=== PATIENT | female | born 1945 | race Caucasian/White ===

== ENCOUNTER → 2017-11-17 13:09 | Outpatient (CLI) | payer MEDICARE, OTHER, SELFPAY ==
--- NOTE | 2017-11-17 13:20 | RAD_ITS ---
STUDY: SWALLOWING STUDY REASON FOR EXAM: Female, 71 years old. Dysphagia. TECHNIQUE: The examination was performed with Speech Pathology in attendance. Under fluoroscopic observation, the patient ingested thin barium, thick barium, barium pudding, and barium coated cracker. FLUOROSCOPY TIME: 1:42 minutes/seconds. 1606 spot images were obtained. RADIOLOGIST INVOLVEMENT: Radiologist was present and providing direct supervision. COMPARISON: None. FINDINGS: The following was observed during swallowing of the various mixtures of barium: Thin Barium: There was no evidence of aspiration or laryngeal penetration. Barium Pudding: There was no evidence of aspiration or laryngeal penetration. Barium Coated Cracker: There was no evidence of aspiration or laryngeal penetration. RAD/Swallowing Function w/Video IMPRESSION: Normal tailored barium swallow study. No evidence of increased risk for aspiration. The swallow study findings were discussed with the patient by the speech pathologist at the conclusion of the examination. Please see speech pathology report for more information and recommendations. Electronically Signed: Chuck Adler MD at 13:39 EDT Tel [phone], Service support ,
--- NOTE | 2017-11-17 13:30 | SP.MBSS_ITS ---
PRIMARY / SECONDARY DIAGNOSIS: dysphagia (R13.10) REFERRING PHYSICIAN: Dr. Myra Echeverria MD CURRENT DIET: regular textures, thin liquids DENTITION: multiple missing teeth MENTAL STATUS: WNL RESPIRATORY STATUS: O2 via room air PREVIOUS MODIFIED BARIUM SWALLOW STUDY: REASON FOR REFERRAL: Patient is a 71 year old female referred for a modified barium swallow (MBS) study to objectively assess the Patients oropharyngeal swallow function under fluoroscopy secondary to reported persistent globus sensation, initially reported early satiety, and apparent persistent reflux leading to emesis ( infrequent). Patient initially describing what sounds like early satiety, though upon expansion, it appears as though the Patient is describing reflux, as she states that if I take another bite, it all is going to come up, and that she continues to feel hungry during events. MEDICAL HISTORY: Arthritis, irritable bowel syndrome, chronic pain status post left total hip replacement (2010). STUDY FINDINGS: Patient participated in a Modified Barium Swallow (MBS) study on 11/17/2017. Dr. Adler was the radiologist present for this evaluation. This study was recorded in the lateral view and images were sent to PACs for storage. The following consistencies were presented to this patient for analysis of oropharyngeal swallow function: thin liquids, pudding, and a regular textured, Honey [employer] cookie. Results of the MBS are as follows: PENETRATION / ASPIRATION SCALE (PARTIDA): 1 = does not enter airway 2 = enters airway/above vocal folds/ejected 3 = enters airway/above vocal folds/not ejected 4 = enters airway/contacts vocal folds/ejected 5 = enters airway/contacts vocal folds/not ejected 6 = enters airway/below vocal folds/ejected 7 = enters airway/below vocal folds/not ejected despite effort 8 = enters airway/below vocal folds/no effort PENETRATION / ASPIRATION SCALE (SCORE): Thin liquid - 5 mL tsp.: 1 Thin liquids via cup (sequential swallows): 1 Thin liquids via cup (single sip): 1 Thin liquids via cup (single sip): 1 Thin liquids via cup (single sip): 1 Thin liquids via straw (single sip): 1 Pudding via spoon: 1 Regular textured cookie: 1 Thin liquids via straw (sequential swallows): 1 IMPRESSION: DIAGNOSIS: mild oropharyngeal dysphagia (R13.12) ORAL PHASE CHARACTERIZED BY: LABIAL SEAL: no labial escape TONGUE CONTROL DURING BOLUS MANIPULATION: intermittent posterior escape of less than half of bolus BOLUS PREPARATION / MASTICATION: timely and efficient chewing and mashing; anterior mastication BOLUS TRANSPORT / LINGUAL MOTION: intermittent brief disorganized tongue movements, though overall brisk tongue motion ORAL RESIDUE: trace residue lining oral structures PHARYNGEAL PHASE CHARACTERIZED BY: INITIATION OF PHARYNGEAL SWALLOW: bolus head at posterior laryngeal surface of epiglottis at first hyoid excursion SOFT PALATE ELEVATION: no bolus between soft palate and pharyngeal wall LARYNGEAL ELEVATION: complete superior movement of thyroid cartilage with complete approximation of arytenoids cartilage to epiglottic petiole ANTERIOR HYOID EXCURSION: partial anterior movement EPIGLOTTIC MOVEMENT: complete epiglottic inversion LARYNGEAL VESTIBULE CLOSURE AT HEIGHT OF SWALLOW: complete laryngeal vestibule closure with no air/contrast in laryngeal vestibule PHARYNGEAL STRIPPING WAVE: pharyngeal stripping wave present / complete PHARYNGOESOPHAGEAL SEGMENT OPENING: complete distension and complete duration with no obstruction of flow TONGUE BASE RETRACTION: trace column of contrast between tongue base and posterior pharyngeal wall PHARYNGEAL RESIDUE: collection of residue within or on pharyngeal structures ESOPHAGEAL PHASE CHARACTERIZED BY: ESOPHAGEAL BOLUS CLEARANCE IN THE UPRIGHT POSITION: complete clearance; esophageal coating; hiatal hernia EFFECTS OF TREATMENT STRATEGIES ATTEMPTED: Liquid chaser = effective Reduced bolus size = effective DIET TEXTURE RECOMMENDATIONS: Will recommend a regular textured, thin liquid diet. 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 Oral phase primarily marked by intermittent brief and inconsistent swallow onset delay primarily with more viscous textures, with occasional brief discoordinated movements, likely attributed to xerostomia given the lack of neurological impairment. Pharyngeal phase primarily marked by reduced closure of the airway during deglutition attributed to reduced anterior hyoid excursion resulting in intermittent disruptions in laryngeal vestibule closure timing; and unexplained pharyngeal dysmotility, with a consistent pocket of contrast retained along the location of the mandible during deglutition, with release post deglutition resulting in pharyngeal retention within the valleculae and pyriforms; atypical of traditional retention patterns, does not impact airway integrity during current study, may require further workup. The Patient does present with slight left palatal weakness in addition to a very trace lingual drift, though would not suspect this to be a causal factor, with little clinical significance suspected in regards to deglutition. All deficits ameliorated with bolus volume adjustments. Small cricopharyngeal bar located at the C-5 C-6 level no impact on pharyngeal motility. No oropharyngeal or pharyngoesophageal dysfunction noted to explain reported globus sensation and reflux / emesis. No aspiration appreciated throughout trials, unable to definitively rule out silent aspiration. RECOMMENDATIONS: No oropharyngeal or pharyngoesophageal dysfunction noted to explain reported globus sensation and reflux / emesis, would consider referral to escort car driver for further workup. Patient able to comprehend and express recommended intake precautions detailed above with sufficient detail to suggest high likelihood of compliance. Provided brief overview of signs and symptoms of aspiration, with recommendations for the Patient to further discuss symptoms with PCP. No further skilled speech-language services warranted at this time targeting dysphagia. ADDITIONAL COMMENTS/RECOMMENDATIONS: Results and recommendations were discussed with the Patient immediately following MBS completion, with the Patient verbalizing understanding and agreement with all recommendations and education provided. IMAGE COUNT: 1606 G-CODES: SWALLOWING [id number] Current Status: CI SWALLOWING [id number] Goal Status: CI SWALLOWING [id number] Discharge Status: CI
== END ==
PROVIDERS: Family Provider Internal Medicine; PCP Internal Medicine; Visit Provider Internal Medicine
DX: R13.10 Dysphagia, unspecified (principal); R68.81 Early satiety
CPT/HCPCS: 74230; 92611; G8996; G8997; G8998

== ENCOUNTER → 2018-03-15 16:30 | Outpatient (CLI) | payer MEDICARE, OTHER, SELFPAY ==
--- NOTE | 2018-03-15 16:33 | RAD_ITS ---
STUDY: X-RAY - CERVICAL SPINE REASON FOR EXAM: Female, 72 years old. Neck and chest pain TECHNIQUE: For view(s) of the cervical spine were obtained. COMPARISON: None FINDINGS: Normal anterior atlantoaxial articulation. Normal odontoid process. Normal cervical lordosis. There is multi-level endplate spondylosis. There is multi-level degenerative disc disease with multilevel disc space narrowing. The soft tissue structures are unremarkable. RAD/Cerv Spine 2 or 3 Views IMPRESSION: Multilevel degenerative changes Electronically Signed: Rad Gillette MD at 13:50 EDT , Service support ,
== END ==
PROVIDERS: Family Provider Internal Medicine; PCP Internal Medicine; Referring Provider Anesthesiology Pain Medicine; Visit Provider Anesthesiology Pain Medicine
DX: M54.2 Cervicalgia (principal)
CPT/HCPCS: 72040

== ENCOUNTER 2018-07-01 17:00 | Emergency (ER) | payer MEDICARE, OTHER, SELFPAY ==
[2018-07-01 17:03] VITALS: BP 124/90; PULSE 93; RESP 16; TEMP 36.2; O2SAT 96; BMI 30.2
[2018-07-01 17:25] LABS: Bacteria 0 SEEN /hpf (None Seen); Red Blood Cells-Urine 0 SEEN /hpf (0-5); Squamous Epithelial Cells - UA 0 SEEN /hpf (5-10)
[2018-07-01] MEDS: Ondansetron ODT 4 MG Tablet PO (17:30)
[2018-07-01 17:35] LABS: Color, Urine Yellow (Yellow); Glucose, Dipstick Normal (Normal); Ketone-Dipstick 15 mg/dl (Negative); Leukocyte Esterase-Dipstick 25 /ul (Negative); Nitrite-Dipstick Negative (Negative); Occult Blood-Urine 10 /ul (Negative); Protein-Dipstick Negative (Negative); Specific Gravity, Urine 1.025 (1.002-1.030); Urine Bilirubin Dipstick Negative (Negative); Urine Clarity Clear (Clear); Urine Urobilinogen Normal (Normal)
[2018-07-01 17:45] LABS: Calcium Oxalate Crystals Ur 1+ /hpf (<or=2+)
[2018-07-01 17:46] LABS: Mucous, Urine 1+ /hpf (<or=2+); White Blood Cells 0-5 SEEN /hpf (0-5)
--- NOTE | 2018-07-01 17:54 | ED.VISSUMM ---
- ER Visit Summary Date of Service: 07/01/18 Chief Complaint: Left flank pain History of Present Illness: The patient is a 72 F who has had 1 week of left flank pain. She states she has a history of arthritis and she has pain all over usually. She states that she started having aching down into her bladder radiating from her left flank. It does get better with a lidocaine patch. She was on Augmentin a couple weeks ago for URI. She denies dysuria or fevers. She currently takes Celebrex, lidocaine patches and Voltaren cream for her back pain. Physical Examination: Vital signs reviewed. Heart is regular rate and rhythm. Lungs clear to auscultation. Abdomen soft and nontender. She has left upper lumbar tenderness palpation. No CVA tenderness. No midline tenderness. Neurologic exam normal Test Results: Urinalysis reveals trace leukocytes and 5 white blood cells Emergency Department Course and Treatment: Patient given [place] and Zofran. There may be a small infectious component. However, I feel this is likely more muscular. She will continue her home medications. I will give her 3 days of Keflex. She will follow-up with her PCP Treatment Plan: [] Disposition: Discharge Impression: UTI, muscular skeletal back pain This note was generated with [employer] dictation software. It may contain incorrect words, spelling, and punctuation that were not noted in review of the chart prior to signing ED Disposition - Plan for ED Patient: Chief Complaint: Flank Pain Referrals: Myra Echeverria MD [Primary Care Provider] -
--- NOTE | 2018-07-01 17:57 | ED.DEP ---
ED Disposition - Plan for ED Patient: Disposition: Home or Assisted Living Chief Complaint: Flank Pain Instructions: ED Kidney Infec Female Prescriptions: Cephalexin [Keflex] 500 mg PO Q12 #6 cap Referrals: Myra Echeverria MD [Primary Care Provider] -
[2018-07-01] MEDS: HYDROcodone Bitartrate/Apap 5/325 Tablet PO (18:14)
[2018-07-01] MEDS: Cephalexin 250 MG Capsule 500 MG PO (18:14)
[2018-07-01 18:20] VITALS: BP 124/80; PULSE 71; RESP 16; TEMP 36.6; O2SAT 100
== END 2018-07-01 18:21 | disposition home or self-care (01) ==
PROVIDERS: Emergency Provider Emergency Medicine; Family Provider Internal Medicine; PCP Internal Medicine
DX: N39.0 Urinary tract infection, site not specified (principal); M54.9 Dorsalgia, unspecified
CPT/HCPCS: 81001; 99284

== ENCOUNTER 2018-07-09 09:55 | Emergency (ER) | payer MEDICARE, OTHER, SELFPAY ==
[2018-07-09 09:57] VITALS: BP 136/95; PULSE 78; RESP 14; TEMP 37.2; O2SAT 98; BMI 31.8
--- NOTE | 2018-07-09 10:08 | CT_ITS ---
STUDY: CT ABDOMEN AND PELVIS WITHOUT CONTRAST REASON FOR EXAM: Female, 72 years [address] Pain [address] Abd/Pelvis wo -- ;LEFT FLANK PAIN AND URINARY DISTRESS. TX FOR UTI. RADIATION DOSAGE (If Supplied By Facility): CTDIvol = ( 10.18 ) mGy, DLP = ( 483.15 ) mGycm TECHNIQUE: Transaxial images were obtained from the dome of the diaphragm to the symphysis pubis without oral contrast, and without intravenous contrast. Sagittal and coronal images were reconstructed. Individualized dose optimization techniques were used for this CT. COMPARISON: None. FINDINGS: The visualized lung bases are unremarkable. The visualized portions of the heart are within normal limits. Normal liver. Normal gallbladder and extrahepatic biliary system. Normal spleen. Normal pancreas. Normal bilateral adrenal glands. There is a 3 cm right kidney cyst. No hydronephrosis Normal left kidney. There is a large hiatal hernia composed mostly of the fundus of the stomach. Normal small intestine. Normal colon. There is non-visualization of the appendix. Normal abdominal aorta. Normal inferior vena cava. Normal retroperitoneum. Normal urinary bladder. There is a small umbilical hernia containing fat. There are diffuse degenerative changes of the visualized lumbar spine. Additionally there is grade 1 anterolisthesis with severe bilateral foraminal stenosis at L4/L5 CT/Abdomen/Pelvis without Cont IMPRESSION: No hydronephrosis or urolithiasis. Large hiatal hernia. Electronically Signed: Dominique Armstrong MD at 12:11 EST Tel , Service support ,
--- NOTE | 2018-07-09 10:12 | ED.DCSUM_ITS ---
- ER Visit Summary Date of Service: 07/09/18 Chief Complaint: Left flank pain History of Present Illness: The patient is a 72 F who has left flank pain. Started today. She had a UTI last week. I saw her at that time and gave her Keflex. She felt better and her symptoms were gone. Last night she started having some dysuria and she described hotness while she was urinating. She states she woke up with some left flank pain today. She has no history of kidney stones personally but there is a family history. She denies hematuria. No fevers. She took nothing for it at home. She does have a history of rheumatoid arthritis and takes Celebrex for this. Physical Examination: Vital signs reviewed. HEENT exam unremarkable. Heart is regular rate and rhythm without murmurs. Lungs are clear to auscultation. Abdomen is soft and nontender. Extremities reveal no edema. Skin exam normal. Neurologic exam normal. Test Results: Hemoglobin 15.1. Glucose 121. Trace leukocytes and 0-5 white blood cells in the urine. CT abdomen pelvis reveals a hiatal hernia with no other abnormalities Emergency Department Course and Treatment: Patient was given [place] for pain which helped. She states that when she was on 3 days of antibiotics she proved. I will send her home with an extended course of Macrobid. She will need to follow-up with urology. Treatment Plan: [] Disposition: Discharge Impression: UTI This note was generated with [employer] dictation software. It may contain incorrect words, spelling, and punctuation that were not noted in review of the chart prior to signing ED Disposition - Plan for ED Patient: Chief Complaint: Flank Pain Referrals: Myra Echeverria MD [Primary Care Provider] -
[2018-07-09] MEDS: HYDROcodone Bitartrate/Apap 5/325 Tablet PO (10:20)
[2018-07-09 10:25] LABS: Absolute Lymphocyte Count 1.39 X10^3/ul (0.83-4.51); Absolute Neutrophil Count 5.8 X10^3/uL (2.0-7.7); Basophil# 0.03 X10^3/uL; Basophil% 0.4 % (0-1); Eosinophil# 0.16 X10^3/uL; Hematocrit 47.1 % (37-47); Hemoglobin 15.1 g/dl (12.0-15.0); Lymphocyte # 1.39 X10^3/ul (4.0); Lymphocyte % 17.7 % (19-41); Mean Corp Hgb Conc 32.1 g/gl (32-36); Mean Corpuscular Hgb 30.2 pg (27.0-32.0); Mean Corpuscular Volume 94.2 fL (81-99); Mean Platelet Vol. 9.3 fl (6.2-12.0); Monocyte# 0.43 X10^3/uL; Monocyte% 5.5 % (0-10); Neutrophil # 5.82 X10^3/uL (2.7-7.7); Neutrophil % 74.1 % (47-70); Platelet Count 295 K/mm3 (150-450); RBC Distribution Width CV 14.4 % (11.6-14.6); RBC Distribution Width SD 47.7 fl (35.1-43.9); White Blood Count 7.9 K/mm3 (4.4-11.0)
[2018-07-09 10:26] LABS: POSITIVE COUNT NO; POSITIVE DIFFERENTIAL NO; POSITIVE MORPHOLOGY NO
[2018-07-09 10:34] LABS: Anion Gap 9 (5-15); BUN 17 mg/dL (7-18); BUN/Creat Ratio 18.7 RATIO (10-20); Calcium,Total 9.1 mg/dL (8.5-10.1); Chloride 108 mmol/L (98-107); Creatinine, Serum 0.91 mg/dL (0.55-1.02); EST Glomerular Filtration Rate 65 mL/min (>60); Est Glom Filt Rate - Afr Amer 78 mL/min (>60); Estimated Creatinine Clearance 63.91 ml/min; Glucose 121 mg/dL (74-106); Potassium 3.7 mmol/L (3.5-5.1); Sodium Level 142 mmol/L (136-145)
[2018-07-09 10:48] LABS: Color, Urine Yellow (Yellow); Glucose, Dipstick Normal (Normal); Ketone-Dipstick Negative (Negative); Leukocyte Esterase-Dipstick 25 /ul (Negative); Nitrite-Dipstick Negative (Negative); Occult Blood-Urine 50 /ul (Negative); Protein-Dipstick Negative (Negative); Specific Gravity, Urine 1.025 (1.002-1.030); Urine Bilirubin Dipstick Negative (Negative); Urine Clarity Clear (Clear); Urine Urobilinogen Normal (Normal)
[2018-07-09 10:57] LABS: Red Blood Cells-Urine 0-5 SEEN /hpf (0-5); Squamous Epithelial Cells - UA 0-5 SEEN /hpf (5-10)
[2018-07-09 10:58] LABS: Bacteria 1+ /hpf (None Seen); Mucous, Urine 1+ /hpf (<or=2+); White Blood Cells 0-5 SEEN /hpf (0-5)
[2018-07-09] MEDS: Ondansetron 4 MG/2 ML Vial IV (11:05)
[2018-07-09 11:54] VITALS: BP 110/73; PULSE 69; RESP 16; O2SAT 97
--- NOTE | 2018-07-09 12:21 | ED.DEP ---
ED Disposition - Plan for ED Patient: Disposition: Home or Assisted Living Chief Complaint: Flank Pain Instructions: ED UTI Cystitis Female Prescriptions: Nitrofurantoin Macrocrystals [Macrobid] 100 mg PO Q12 #14 cap Referrals: Myra Echeverria MD [Primary Care Provider] - Osman Champagne MD [STAFF PHYSICIAN] -
[2018-07-09 12:45] VITALS: BP 130/81; PULSE 62; RESP 16; O2SAT 99
--- OUTSIDE RECORDS SUMMARY | 2018-09-10 20:44 | XMS RPT_ITS ---
:1945 Author Organization [facility] Care Team Providers Name Role Phone TALAMPAS, MARIUSZ D Referring Unavailable TALAMPAS, MARIUSZ D Referring Unavailable DEMETRIA ANGULO (PA) Attending Unavailable TALAMPAS, MARIUSZ D Referring Unavailable ZEYAD STRATTON Attending Unavailable ZEYAD STRATTON Referring Unavailable TALAMPAS, MARIUSZ D Attending Unavailable ZEYAD STRATTON Attending Unavailable ZEYAD STRATTON Referring Unavailable ZEYAD STRATTON Attending Unavailable STRATTON ZEYAD Referring Unavailable TALAMPAS, MARIUSZ D Referring Unavailable THORPEFELIPA (BIT SHAVER) Attending Unavailable TALAMPAS, MARIUSZ D Referring Unavailable CHER TEE (DIRECTOR FACILITIES MAINTENANCE) Attending Unavailable CHER TEE (DIRECTOR FACILITIES MAINTENANCE) Referring Unavailable JESSE HERRERA Admitting Unavailable JESSE HERRERA Attending Unavailable FELIPA MARTINEZ (BIT SHAVER) Referring Unavailable ZEYAD STRATTON Attending Unavailable TALAMPAS, MARIUSZ D Referring Unavailable THORFELIPA KIMBROUGH (BIT SHAVER) Attending Unavailable THORFELIPA KIMBROUGH (BIT SHAVER) Referring Unavailable TALAMPAS, MARIUSZ D Referring Unavailable TALAMPAS, MARIUSZ D Attending Unavailable TALAMPAS, MARIUSZ D Referring Unavailable TALAMPAS, MARIUSZ D Referring Unavailable Talampas, Mariusz Primary Care Unavailable Chan Terrell Attending Unavailable Talampas, Mariusz Primary Care Unavailable Chan Terrell Attending Unavailable Talampas, Mariusz Attending Unavailable Talampas, Mariusz Referring Unavailable Talampas, Mariusz Primary Care Unavailable Martha Lopez Attending Unavailable Martha Lopez Referring Unavailable IrvingkyaColumbaa Primary Care Unavailable PROBLEMS PROBLEMS DATE TYPE CONDITION / CODE ATTENDING STATUS SOURCE 05/18/2018 Active Other fatigue / NA Active [facility] R53.83(ICD-10) [facility] [place] Rep[facility] 07/07/2015 Active Pure NA Active [facility] hypercholesterolem [place] ia, unspecified / Repository E78.00(ICD-10) 05/14/2018 Active Other abnormal NA Active [facility] glucose / [facility] [place] R73.09(ICD-10) Repository 01/22/2018 Active Dysphagia, HERRERA, Active [facility] unspecified / JESSE [facility] [place] R13.10(ICD-10) Repository 01/16/2018 Active Pain in left NA Active [facility] shoulder / [facility] [place] M25.512(ICD-10) Repository 12/07/2017 Active Encounter for NA Active [facility] screening [facility] [place] mammogram for Repository malignant neoplasm of breast / Z12.31(ICD-10) 11/17/2017 Unknown R13.10 - Mariusz Bhandari Active [facility] unspecified / Hospital R13.10(ICD-10) Repository 11/17/2017 Unknown R68.81 - Early TalampMariusz cooper Active [facility]ety / Community R68.81(ICD-10) Hospital Repository 11/02/2017 Active Unknown / ZEYAD STRATTON Active [facility] UNK(Unknown) [facility] [place] [facility] 09/05/2014 Active Vitamin D Active [facility] deficiency, [facility] [place] unspecified / Repository E55.9(ICD-10) 09/12/2017 Active Other longterm NA Active [facility] (current) drug [facility] [place] therapy / Repository Z79.899(ICD-10) 09/12/2017 Active Age-related Active [facility] osteoporosis [facility] [place] without current Repository pathological fracture / M81.0(ICD-10) PROCEDURES PROCEDURES No Procedure Records FoundRESULTS RESULTS OBSOLETE Observed: 07/10/2018 Status: COMPLETED Source: [place] 12:00 AM [facility] REPOSITORY Refill (INTMWS) NELLA CARLSON ([id number]) 1945 F Date Time Provider Department 07/10/18 MARIUSZ BHANDARI During your visit today, we recorded the following information about you: Delmy Luo LPN 07/10/2018 3:40 PM Signed Call from pharmacy requesting refill. Pending Prescriptions Disp Refills CELECOXIB 100 MG CAPSULE 90 capsule 1 Sig: Take 1 capsule by mouth once daily. TIN: No Patient last seen 05/18/18 Delmy Luo LPN Allergies As of Date: 07/10/2018 Noted Allergy Reaction OXYCODONE 03/23/2015 8 - GI Upset LYRICA (PREGABALIN) 10/29/2014 8 - GI Upset SEASONAL ALLERGIES 11/16/2017 14 - Other: See Comments Comments: sneezing, runny nose, and headache Date Reviewed: 05/18/2018 Reviewed by: Delmy Luo LPN - Fully Assessed Reason for Visit: Refill Request [94] Order(s):celecoxib (CELEBREX) 100 mg capsuleTake 1 capsule by mouth once daily.Disp: 90 capsuleRfl: 1 Prescriptions as of 07/10/2018 Sig: CELECOXIB 100 MG CAPSULE Take 1 capsule by mouth once * FLUTICASONE 50 MCG/ACTUATION * USE 1 SPRAY IN EACH NOSTRIL D* DEXILANT 60 MG CAPSULE, DELAY* TAKE 1 CAPSULE DAILY ZOLEDRONIC ACID 5 MG/100 ML I* Inject 100 mL intravenously o* OLOPATADINE 0.1 % EYE DROPS Use 1 Drop in both eyes twice* VOLTAREN 1 % TOPICAL GEL APPLY 2 GRAMS TO AFFECTED ARE* IPRATROPIUM BROMIDE 0.03 % NA* USE 1 TO 2 SPRAYS NASALLY DAPHNIE* Patient not taking: Reported on 05/18/2018 LIDOCAINE 5 % TOPICAL PATCH Apply 2 Patches as directed e* TRIAMCINOLONE ACETONIDE 0.1 %* Apply 1 application to affect* DIPHENOXYLATE-ATROPINE 2.5 MG* Take 1 tablet by mouth twice * GABAPENTIN 400 MG CAPSULE Take 1-2 capsules by mouth th* MECLIZINE 25 MG TABLET Take 1 tablet by mouth every * COMPOUNDED PRESCRIPTION methylcobalamin CHOLECALCIFEROL (VITAMIN D3) * Take 1 capsule by mouth once * METHYLSULFONYLMETHANE 1,000 M* Take 1 tablet by mouth once d* GARLIC TABLET Take 1 tablet by mouth. CINNAMON ORAL Take by mouth. VFMOYTZOMIP-FBL-FOPGJDEKP-VIT* Take by mouth. LORATADINE 10 MG TABLET Take 10 mg by mouth once heather* CPAP BOSWELLIA RONDA XT (BULK) M* 800 mg once daily. MULTIVITAMIN TABLET Take 1 tablet by mouth once d* VITAMIN E (DL, ACETATE) 400 U* Take 400 Units by mouth once * MAGNESIUM OXIDE 400 MG (241.3* Take 1 tablet by mouth once d* Problem List As Of Date 07/10/2018 Noted Resolved Ovarian cyst, follicular [N83.00] INVALID FOR*11/10/2016 More... Plantar fasciitis, bilateral [M72.2] INVALID FOR* Osteoporosis [M81.0] Vitamin D deficiency [E55.9] Diffuse myofascial pain syndrome [M79.18] INVALID FOR* Chronic pain [G89.29] INVALID FOR* Generalized OA [M15.9] INVALID FOR* Arthritis of knee [M17.10] INVALID FOR*02/27/2017 Pain in joint, pelvic region and thigh [M25.559]INVALID FOR* DONITA on CPAP [G47.33, Z99.89] INVALID FOR*02/27/2017 GERD (gastroesophageal reflux disease) [K21.9] INVALID FOR* Arthropathy, lower leg [HJB9480] INVALID FOR*03/23/2015 Hypercholesteremia [E78.00] Rectal bleeding [K62.5] Status post total left knee replacement [Z96.65*INVALID FOR*02/27/2017 Status post total replacement of left hip [Z96.*INVALID FOR* Pain in right hip [M25.551] INVALID FOR* Primary osteoarthritis of right knee [M17.11] INVALID FOR* DONITA (obstructive sleep apnea)-untreated [G47.33] Arthritis [M19.90] INVALID FOR* More... Class 1 obesity due to excess calories without *INVALID FOR* Prescriptions ordered this encounter Disp Refills Start End CELECOXIB 100 MG CAPSULE 90 c* 1 07/10/2018 Class: [facility] Route: ORAL Sig: Take 1 capsule by mouth once daily. Medications Discontinued During This Encounter celecoxib (CELEBREX) 100 mg capsule 90 c* 1 01/09/2018 07/10/2018 Route: ORAL Sig: Take 1 capsule by mouth once daily. Disc: Reason for discontinue is not on file. Encounter Status:Closed by CHER COONEY on 07/10/18 EMERGENCY DEPARTMENT Observed: 07/09/2018 Status: F Source: [place] SUMMARY 12:21 PM [facility] REPOSITORY [facility] Medical Records Department [address] [place] [address] Emergency Department Summary 07/09/18 1011 MR#: [id number] Acct: [id number] Name: NELLA CARLSON Rep #: [id number] : 1945 72 From: Chan Terrell MD PCP: Mariusz Bhandari MD Status: REG ER - ER Visit Summary Date of Service: 07/09/18 Chief Complaint: Left flank pain History of Present Illness: The patient is a 72 F who has left flank pain. Started today. She had a UTI last week. I saw her at that time and gave her Keflex. She felt better and her symptoms were gone. Last night she started having some dysuria and she described hotness while she was urinating. She states she woke up with some left flank pain today. She has no history of kidney stones personally but there is a family history. She denies hematuria. No fevers. She took nothing for it at home. She does have a history of rheumatoid arthritis and takes Celebrex for this. Physical Examination: Vital signs reviewed. HEENT exam unremarkable. Heart is regular rate and rhythm without murmurs. Lungs are clear to auscultation. Abdomen is soft and nontender. Extremities reveal no edema. Skin exam normal. Neurologic exam normal. Test Results: Hemoglobin 15.1. Glucose 121. Trace leukocytes and 0-5 white blood cells in the urine. CT abdomen pelvis reveals a hiatal hernia with no other abnormalities Emergency Department Course and Treatment: Patient was given [place] for pain which helped. She states that when she was on 3 days of antibiotics she proved. I will send her home with an extended course of Macrobid. She will need to follow-up with urology. Treatment Plan: [] Disposition: Discharge Impression: UTI This note was generated with Jasper Wirelessation software. It may contain incorrect words, spelling, and punctuation that were not noted in review of the chart prior to signing ED Disposition - Plan for ED Patient: Chief Complaint: Flank Pain Referrals: Mariusz Bhandari MD [Primary Care Provider] - What to do if you have Problems For any increased pain, shortness of breath, bleeding, nausea or vomiting, chest pain, or any unexpected problems, contact your Primary Care Provider. Call [facility] ([phone]) or report to the closest Emergency Room. Call 911 if necessary. 07/09/18 1221 <Electronically signed by Chan Terrell MD> Date Chan Terrell MD Cosigner Signature (If Indicated): Date CC: Mariusz Bhandari MD DISCHARGE INSTRUCTION Observed: 07/09/2018 Status: F Source: [place] 12:21 PM [facility] REPOSITORY [facility] Medical Records Department [address] [place] [address] Discharge Instruction 07/09/18 1221 MR#: [id number] Acct: [id number] Name: NELLA CARLSON Rep #: [id number] : 1945 72 From: Chan Terrell MD PCP: Mariusz Bhandari MD Status: REG ER ED Disposition - Plan for ED Patient: Disposition: Home or Assisted Living Chief Complaint: Flank Pain Instructions: ED UTI Cystitis Female Prescriptions: Nitrofurantoin Macrocrystals [Macrobid] 100 mg PO Q12 #14 cap Referrals: Mariusz Bhandari MD [Primary Care Provider] - Osman Champagne MD [STAFF PHYSICIAN] - What to do if you have Problems For any increased pain, shortness of breath, bleeding, nausea or vomiting, chest pain, or any unexpected problems, contact your Primary Care Provider. Call [facility] ([phone]) or report to the closest Emergency Room. Call 911 if necessary. 07/09/18 1221 <Electronically signed by Chan Terrell MD> Date Chan Terrell MD Cosigner Signature (If Indicated): Date CC: Mariusz Bhandari MD URINALYSIS, COMPLETE Collected: 07/09/2018 Status: F Source: [place] 10:40 AM [facility] REPOSITORY Order Comment: Order Date: 07/09/18 How was Urine Obtained? BOAT ENGINE MECHANIC TO SPECIFY TYPE CODE TESTS RESULT OUT OF RANGE REFERENCE UNITS LAB L400.3000 Yellow COLOR Normal Yellow LAB L400.3050 Clear Normal CLARITY Clear LAB L400.3200 Normal mg/dl Normal GLUCOSE, UR Normal LAB L400.3300 Negative mg/dL Normal BILIRUBIN URINE Negative LAB L400.3400 Negative mg/dl Normal KETONE UR Negative LAB L400.3465 1.002-1.030 Normal SP.GR. DIPSTX 1.025 LAB L400.3550 5.0 - 8.0 pH UR Normal 5.0 LAB L400.3600 Negative mg/dl PROT Normal DIPSTX Negative LAB L400.3700 Normal mg/dl Normal UROBILI Normal LAB L400.3750 Negative Normal NITRITE UR Negative LAB L400.3780 Negative /ul High 50 OCCULT BLOOD-UR LAB L400.3800 Negative /ul High LEUK 25 ESTERASE LAB L400.4050 0-5 /hpf WBC Normal 0-5 SEEN LAB L400.4100 0-5 /hpf Normal RBC-UA 0-5 SEEN LAB L400.4150 5-10 /hpf SQUAM Normal EPI 0-5 SEEN LAB L400.4300 None Seen /hpf 1+ Normal BACTERIA LAB L400.4350 <or=2+ /hpf 1+ Normal MUCUS, URINE Performed By: #### L400.0001 #### [facility] [address] [place], [address] Observed: 07/09/2018 Status: F Source: [place] CULTURE, URINE 10:40 AM [facility] REPOSITORY Order Date: 07/09/18 Urine Culture Culture exhibits no growth. Performed By: #### M100.0650 #### [facility] [place], [address] CBC W/DIFF, AUTOMATED Collected: 07/09/2018 Status: F Source: [place] 10:13 AM [facility] REPOSITORY TYPE CODE TESTS RESULT OUT OF RANGE REFERENCE UNITS LAB L100.1000 4.4-11.0 K/mm3 Normal WBC 7.9 LAB L100.1200 4.2-5.4 M/mm3 Normal RBC 5.00 LAB L100.1300 12.0-15.0 g/dl High HGB 15.1 LAB L100.1400 37-47 % High HCT 47.1 LAB L100.1500 81-99 fL Normal MCV 94.2 LAB L100.1600 27.0-32.0 pg Normal MCH 30.2 LAB L100.1700 32-36 g/gl Normal MCHC 32.1 LAB L100.1810 11.6-14.6 % Normal RDW CV 14.4 LAB L100.1820 35.1-43.9 fl High RDW SD 47.7 LAB L100.1900 150-450 K/mm3 Normal PLT 295 LAB L100.2000 6.2-12.0 fl Normal MPV 9.3 LAB L100.2100 47-70 % High NEUT% 74.1 LAB L100.2200 19-41 % Low LY% 17.7 LAB L100.2300 0-10 % Normal MONO% 5.5 LAB L100.2400 0-5 % Normal EO% 2.0 LAB L100.2500 0-1 % Normal BASO% 0.4 LAB L100.2550 0.0-0.9 % Normal IM GRAN % 0.300 Result Comment: IG% - Immature Granulocytes (promyelocytes, myelocytes and metamyelocytes) > 1% indicates that a LEFT SHIFT is Present. LAB L100.2620 2.0-7.7 X10 3/uL Normal Absolute Neut 5.8 LAB L100.2720 0.83-4.51 X10 3/ul Normal Absolute Lymph 1.39 Performed By: #### L100.0100 #### [facility] [address] [place], [address] BASIC METABOLIC Collected: 07/09/2018 Status: F Source: [place] PROFILE (BMP) 10:13 AM [facility] REPOSITORY TYPE CODE TESTS RESULT OUT OF RANGE REFERENCE UNITS LAB L501.0100 74-106 mg/dL High GLU 121 Result Comment: Fasting Glucose result from 100 to 125 mg/dL suggests IMPAIRED HOMEOSTASIS per A.D.A. criteria. Please note revised GLUCOSE reference range effective 2017. LAB L501.1000 7-18 mg/dL Normal BUN 17 LAB L501.1100 0.55-1.02 mg/dL Normal CREAT,SERUM 0.91 Result Comment: The validity of the calculated GFR AND GFRAA in patients over 70 years has not been determined. Clinical correlation is essential. LAB L501.1110 >60 mL/min Normal EST GFR 65 Result Comment: Non- GFR Calc LAB L501.1115 >60 mL/min Normal EST GFR - AA 78 Result Comment: GFR Calc LAB L501.1255 ml/min Normal Estimated CRCL 63.91 LAB L501.1300 10-20 RATIO Normal BUN/CRE 18.7 LAB L501.2200 8.5-10 mg/dL Normal .1 CA 9.1 LAB L501.5300 136-14 mmol/L Normal 5 NA 142 LAB L501.5600 3.5-5. mmol/L Normal 1 K 3.7 LAB L501.5900 98-107 mmol/L High CL 108 LAB L501.6100 21.0-3 mmol/L Normal 2.0 CO2 25.0 LAB L501.6200 5-15 Normal GAP 9 Performed By: #### L500.2500 #### [facility] [address] [place], [address] ABDOMEN/PELVIS WITHOUT Observed: 07/09/2018 Status: F Source: [place] CONT 10:10 AM [facility] REPOSITORY [facility] Imaging Services [address] [place] [address] Abdomen/Pelvis without Cont MR#: [id number] Acct: [id number] Name: NELLA CARLSON Rep #: [id number] : 1945 F 72 From: Dominique Armstrong PCP: Mariusz Bhandari MD Status: REG ER Study: Abdomen/Pelvis without Cont Date of Exam: 07/09/18 Exam# [id number] Ordering Dr: Chan Terrell MD STUDY: CT ABDOMEN AND PELVIS WITHOUT CONTRAST REASON FOR EXAM: Female, 72 years [address] Pain [address] Abd/Pelvis wo -- ;LEFT FLANK PAIN AND URINARY DISTRESS. TX FOR UTI. RADIATION DOSAGE (If Supplied By Facility): CTDIvol = ( 10.18 ) mGy, DLP = ( 483.15 ) mGycm TECHNIQUE: Transaxial images were obtained from the dome of the diaphragm to the symphysis pubis without oral contrast, and without intravenous contrast. Sagittal and coronal images were reconstructed. Individualized dose optimization techniques were used for this CT. COMPARISON: None. FINDINGS: The visualized lung bases are unremarkable. The visualized portions of the heart are within normal limits. Normal liver. Normal gallbladder and extrahepatic biliary system. Normal spleen. Normal pancreas. Normal bilateral adrenal glands. There is a 3 cm right kidney cyst. No hydronephrosis Normal left kidney. There is a large hiatal hernia composed mostly of the fundus of the stomach. Normal small intestine. Normal colon. There is non-visualization of the appendix. Normal abdominal aorta. Normal inferior vena cava. Normal retroperitoneum. Normal urinary bladder. There is a small umbilical hernia containing fat. There are diffuse degenerative changes of the visualized lumbar spine. Additionally there is grade 1 anterolisthesis with severe bilateral foraminal stenosis at L4/L5 CT/Abdomen/Pelvis without Cont IMPRESSION: No hydronephrosis or urolithiasis. Large hiatal hernia. Electronically Signed: Dominique Armstrong MD at 12:11 EST Tel , Service support , CC: Chan Terrell MD; Mariusz Bhandari MD Car Whacker: Signed EMERGENCY DEPARTMENT Observed: 07/01/2018 Status: F Source: [place] SUMMARY 5:57 PM [facility] REPOSITORY [facility] Medical Records Department [address] [place] [address] Emergency Department Summary 07/01/18 1754 MR#: [id number] Acct: [id number] Name: NELLA CARLSON Rep #: [id number] : 1945 72 From: Chan Terrell MD PCP: Mariusz Bhandari MD Status: REG ER - ER Visit Summary Date of Service: 07/01/18 Chief Complaint: Left flank pain History of Present Illness: The patient is a 72 F who has had 1 week of left flank pain. She states she has a history of arthritis and she has pain all over usually. She states that she started having aching down into her bladder radiating from her left flank. It does get better with a lidocaine patch. She was on Augmentin a couple weeks ago for URI. She denies dysuria or fevers. She currently takes Celebrex, lidocaine patches and Voltaren cream for her back pain. Physical Examination: Vital signs reviewed. Heart is regular rate and rhythm. Lungs clear to auscultation. Abdomen soft and nontender. She has left upper lumbar tenderness palpation. No CVA tenderness. No midline tenderness. Neurologic exam normal Test Results: Urinalysis reveals trace leukocytes and 5 white blood cells Emergency Department Course and Treatment: Patient given [place] and Zofran. There may be a small infectious component. However, I feel this is likely more muscular. She will continue her home medications. I will give her 3 days of Keflex. She will follow-up with her PCP Treatment Plan: [] Disposition: Discharge Impression: UTI, muscular skeletal back pain This note was generated with Aubrey dictation software. It may contain incorrect words, spelling, and punctuation that were not noted in review of the chart prior to signing ED Disposition - Plan for ED Patient: Chief Complaint: Flank Pain Referrals: Mariusz Bhandari MD [Primary Care Provider] - What to do if you have Problems For any increased pain, shortness of breath, bleeding, nausea or vomiting, chest pain, or any unexpected problems, contact your Primary Care Provider. Call [facility] ([phone]) or report to the closest Emergency Room. Call 911 if necessary. 07/01/181756 <Electronically signed by Chan Terrell MD> Date Chan Terrell MD Cosigner Signature (If Indicated): Date CC: Mariusz Bhandari MD DISCHARGE INSTRUCTION Observed: 07/01/2018 Status: F Source: [place] 5:57 PM [facility] REPOSITORY [facility] Medical Records Department [address] [place] [address] Discharge Instruction 07/01/181756 MR#: [id number] Acct: [id number] Name: NELLA CARLSON Tina Rep #: [id number] : 1945 72 From: Chan Terrell MD PCP: Mariusz Bhandari MD Status: REG ER ED Disposition - Plan for ED Patient: Disposition: Home or Assisted Living Chief Complaint: Flank Pain Instructions: ED Kidney Infec Female Prescriptions: Cephalexin [Keflex] 500 mg PO Q12 #6 cap Referrals: Mariusz Bhandari MD [Primary Care Provider] - What to do if you have Problems For any increased pain, shortness of breath, bleeding, nausea or vomiting, chest pain, or any unexpected problems, contact your Primary Care Provider. Call [facility] ([phone]) or report to the closest Emergency Room. Call 911 if necessary. 07/01/181756 <Electronically signed by Chan Terrell MD> Date Chan Terrell MD Cosigner Signature (If Indicated): Date CC: Mariusz Bhandari MD URINALYSIS, COMPLETE Collected: 07/01/2018 Status: F Source: [place] 5:15 PM [facility] REPOSITORY Order Comment: Order Date: 07/01/18 How was Urine Obtained? CLEAN CATCH TYPE CODE TESTS RESULT OUT OF RANGE REFERENCE UNITS LAB L400.3000 Yellow COLOR Normal Yellow LAB L400.3050 Clear Normal CLARITY Clear LAB L400.3200 Normal mg/dl Normal GLUCOSE, UR Normal LAB L400.3300 Negative mg/dL Normal BILIRUBIN URINE Negative LAB L400.3400 Negative mg/dl High 15 KETONE UR LAB L400.3465 1.002-1.030 Normal SP.GR. DIPSTX 1.025 LAB L400.3550 5.0 - 8.0 pH UR Normal 5.0 LAB L400.3600 Negative mg/dl PROT Normal DIPSTX Negative LAB L400.3700 Normal mg/dl Normal UROBILI Normal LAB L400.3750 Negative Normal NITRITE UR Negative LAB L400.3780 Negative /ul High 10 OCCULT BLOOD-UR LAB L400.3800 Negative /ul High LEUK 25 ESTERASE LAB L400.4050 0-5 /hpf WBC Normal 0-5 SEEN LAB L400.4100 0-5 /hpf 0 Normal RBC-UA SEEN LAB L400.4150 5-10 /hpf SQUAM 0 Normal EPI SEEN LAB L400.4300 None Seen /hpf 0 Normal BACTERIA SEEN LAB L400.4350 <or=2+ /hpf 1+ Normal MUCUS, URINE LAB L400.4700 <or=2+ /hpf CA OX 1+ Normal CRYSTAL Performed By: #### L400.0001 #### [facility] [address] [place], [address] CBC Collected: 05/18/2018 Status: F Source: [place] 1:36 PM [facility] REPOSITORY TYPE CODE TESTS RESULT OUT OF REFERENCE UNITS RANGE LAB WBC 3.70-11.00 k/uL WBC 7.95 LAB RBC 3.90-5.20 m/uL RBC 4.79 LAB HGB 11.5-15.5 g/dL Hemoglobin 14.3 LAB HCT 36.0-46.0 % Hematocrit 45.9 LAB MCV 80.0-100.0 fL MCV 95.8 LAB MCH 26.0-34.0 pG MCH 29.9 LAB MCHC 30.5-36.0 g/dL MCHC 31.2 LAB RDWCV 11.5-15.0 % RDW-CV 13.7 LAB PLTCT 150-400 k/uL Platelet Count 345 LAB MPV 9.0-12.7 fL MPV 9.7 LAB ABSNUC <0.01 k/uL Absolute nRBC <0.01 Performed By: #### CBC, TSH, FT4 #### [facility] [address] [address] TSH Collected: 05/18/2018 Status: F Source: [place] 1:36 PM [facility] REPOSITORY TYPE CODE TESTS RESULT OUT OF RANGE REFERENCE UNITS LAB TSH 0.400-5.500 uU/mL TSH 0.922 Performed By: #### CBC, TSH, FT4 #### [facility] [address] [address] FREE T4 Collected: 05/18/2018 Status: F Source: [place] 1:36 PM [facility] REPOSITORY TYPE CODE TESTS RESULT OUT OF RANGE REFERENCE UNITS LAB FT4 0.9-1.7 ng/dL Free T4 1.2 Performed By: #### CBC, TSH, FT4 #### [facility] [address] [id number] PROGRESS Observed: 05/18/2018 Status: COMPLETED Source: [place] 12:40 PM [facility] REPOSITORY HNO ID: [id number] Author: Mariusz Bhandari Service: (none) Author Type: Physician Type: Progress Notes Filed: 06/03/2018 8:31 PM Note Text: Patient presents with: Recheck: Follow up SUBJECTIVE: Nella Carlson is a 72 year old year old lady here today for 6 month follow up appointment for review of medical conditions. No energy Gets plenty of rest Gained weight. Got worse over the past summer. Doesn't feel like doing anything. Most nights sleeps through the night. Nocturia no more than once in a night. Gets 8 to 9 hours. Normal amount of sleep time as she needed before. Has been diagnosed with DONITA but not using CPAP or APAP. Did not tolerate when tried years ago. Arthritis is really bad. Bone on tops of feet cause pain from being fused. 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 Usually has a lot of energy--even last summer was able to work for hours. Wheezing noted when walks in house. Not really SOB unless doing something more strenuous. PAST MEDICAL HISTORY Diagnosis Date - Arthritis - DDD (degenerative disc disease) - Hemorrhoid - Hypercholesteremia - DONITA (obstructive sleep apnea) - Osteoporosis - Ovarian cyst, follicular 09/05/2014 followed by [facility]CC MED PHYSICIAN with every 6 month pelvic US; last one 03/2014 - Plantar fasciitis, bilateral 09/05/2014 - Rectal bleeding - Snoring - Vitamin D deficiency Current Outpatient Prescriptions: fluticasone (FLONASE) 50 mcg/actuation nasal spray USE 1 SPRAY IN EACH NOSTRIL DAILY celecoxib (CELEBREX) 100 mg capsule Take 1 capsule by mouth once daily. DEXILANT 60 mg CpDM TAKE 1 CAPSULE DAILY olopatadine (PATANOL) 0.1 % ophthalmic solution Use 1 Drop in both eyes twice daily. VOLTAREN 1 % topical gel APPLY 2 GRAMS TO AFFECTED AREA FOUR TIMES A DAY lidocaine (LIDODERM) 5 % Apply 2 Patches as directed every 24 hours. Remove after 12 hours. Location: Lower back and knees. triamcinolone acetonide (KENALOG) 0.1 % cream Apply 1 application to affected area three times daily. As needed for rash. Apply sparingly to area for rash/itching. diphenoxylate-atropine (LOMOTIL) 2.5-0.025 mg per tablet Take 1 tablet by mouth twice daily as needed for Diarrhea. gabapentin (NEURONTIN) 400 mg capsule Take 1-2 capsules by mouth three times daily. meclizine (ANTIVERT) 25 mg tab Take 1 tablet by mouth every 6 hours as needed (dizziness). COMPOUNDED PRESCRIPTION methylcobalamin Cholecalciferol, Vitamin D3, 5,000 unit cap Take 1 capsule by mouth once daily. (took 2 daily since April appt) Methylsulfonylmethane (MSM) 1,000 mg tab Take 1 tablet by mouth once daily. Garlic tab Take 1 tablet by mouth. CINNAMON BARK (CINNAMON ORAL) Take by mouth. Fxbbarrzfaw-MXY-Vfgstfteg-VitC cap Take by mouth. loratadine (CLARITIN) 10 mg tablet Take 10 mg by mouth once daily. CPAP BOSWELLIA RONDA EXTRACT (BOSWELLIA RONDA XT, BULK, [facility]) 800 mg once daily. multivitamin (DAILY MULTI-VITAMIN) tablet Take 1 tablet by mouth once daily. VITAMIN E, DL,TOCOPHERYL ACET, (VITAMIN E, DL, ACETATE,) 400 unit cap Take 400 Units by mouth once daily. magnesium oxide (MAG-OX) 400 mg tablet Take 1 tablet by mouth once daily. zoledronic acid (RECLAST) 5 mg/100 mL pgbk PREMIX piggyback Inject 100 mL intravenously one time only for 1 dose. Ipratropium [place] (ATROVENT) 0.03 % nasal spray USE 1 TO 2 SPRAYS NASALLY EVERY 12 HOURS DIRECTED (Patient not taking: Reported on 05/18/2018) No current facility-administered medications for this visit. OBJECTIVE: BP 100/76 Pulse 92 Resp 20 Wt 71.7 kg (158 lb) BMI 31.91 kg/m? Patient is alert, oriented times 3, no apparent distress, affect is bright, reactive. Last 5 Encounter BP Readings: Date: BP: 05/18/2018 100/76 03/12/2018 118/84 01/16/2018 112/82 01/03/2018 112/83 01/02/2018 116/77 Last 5 Encounter Wt Readings: Date: Wt: 05/18/2018 71.7 kg (158 lb) 03/12/2018 72.6 kg (160 lb) 01/16/2018 71.7 kg (158 lb) 01/03/2018 71.7 kg (158 lb 1.1 oz) 01/02/2018 71.7 kg (158 lb) Heart: Regular rate, rhythm, no murmurs, gallops, rubs. Lungs: Clear to auscultation, bilaterally, breathing non labored. Ext: No cyanosis, clubbing, or edema. Component Latest Ref Rng AND Units 09/10/2014 09/28/2015 03/22/2016 10/10/2016 10/30/2017 Triglyceride <150 mg/dL 129 125 109 120 179 (H) Cholesterol, Total <200 mg/dL 197 249 (H) 294 (H) 234 (H) 240 (H) HDL Cholesterol >39 mg/dL 73 95 93 96 99 VLDL Cholesterol <30 mg/dL 26 25 22 24 36 (H) LDL Cholesterol <100 mg/dL 98 129 179 (H) 114 105 (H) Fasting Time hrs FASTING FASTING fasting 13 1 TC:HDL Ratio <5.10 2.70 2.62 3.16 2.44 2.42 LDL:HDL Ratio <2.54 1.34 1.36 1.92 1.19 1.06 Non HDL Cholesterol <130 mg/dL 124 154 201 (H) 138 141 (H) Component Latest Ref Rng AND Units 10/10/2016 04/12/2017 09/12/2017 05/14/2018 Protein, Total 6.3 - 8.0 g/dL 6.6 7.2 6.8 Albumin 3.9 - 4.9 g/dL 4.0 4.2 4.1 Calcium 8.5 - 10.2 mg/dL 9.0 9.5 9.5 9.5 Bilirubin, Total 0.2 - 1.3 mg/dL 0.6 0.4 0.6 Alkaline Phosphatase 34 - 123 U/L 72 58 43 AST 13 - 35 U/L 25 25 28 Glucose 74 - 99 mg/dL 78 69 (L) 117 (H) 85 BUN 7 - 21 mg/dL 18 23 (H) 21 18 Creatinine 0.58 - 0.96 mg/dL 0.80 0.85 0.95 0.92 Sodium 136 - 144 mmol/L 140 141 140 144 Potassium 3.7 - 5.1 mmol/L 4.4 4.2 4.0 4.0 Chloride 97 - 105 mmol/L 103 104 103 108 (H) CO2 22 - 30 mmol/L 24 23 22 25 Anion Gap 9 - 18 mmol/L 13 14 15 11 ALT 7 - 38 U/L 16 20 19 eGFR- >60 >60 >60 >60 eGFR-All Other Races . >60 >60 58 >60 WBC 3.70 - 11.00 k/uL 6.53 8.69 RBC 3.90 - 5.20 m/uL 4.46 4.91 Hemoglobin 11.5 - 15.5 g/dL 13.3 14.8 Hematocrit 36.0 - 46.0 % 42.7 46.6 (H) MCV 80.0 - 100.0 fL 95.7 94.9 MCH 26.0 - 34.0 pG 29.8 30.1 MCHC 30.5 - 36.0 g/dL 31.1 31.8 RDW-CV 11.5 - 15.0 % 14.6 13.9 Platelet Count 150 - 400 k/uL 335 372 MPV 9.0 - 12.7 fL 10.2 9.5 Absolute nRBC <0.01 k/uL <0.01 <0.01 Hemoglobin A1C 4.3 - 5.6 % 5.4 Estimated Average Glucose mg/dL 108 Vitamin D 25 Hydroxy 31.0 - 80.0 ng/mL 40.2 37.4 39.2 Magnesium 1.7 - 2.3 mg/dL 2.0 1.9 ASSESSMENT AND PLAN: Encounter Diagnosis ICD-10-CM 1. Fatigue, unspecified type R53.83 TSH BLD T4 FREE/FREE THYROX CBC 2. Daytime sleepiness R40.0 3. DONITA (obstructive sleep apnea)--untreated G47.33 4. Vitamin D deficiency E55.9 5. Hypercholesteremia E78.00 Above issues addressed with patient. Patient involved in shared decision making for management of medical issues. History and medications reviewed. Epic updated as needed Refills taken care of and meds adjusted as indicated after reviewed history, exam and labs. Health Maintenance reviewed. Updated record and/or ordered tests as recorded. Encouraged on efforts at healthy diet and regular exercise and adequate sleep. Needs to keep working on diet and exercise with lifestyle changes for effective weight loss as well as control of DM, and control of BP and lipids. See patient instructions. Update labs as noted above. Further evaluation and treatment as indicated for fatigue. Need to consider treating CPAP if fatigue getting worse and cannot find another treatable cause. The majority of the visit was spent counseling and/or coordinating care for the patient. Azlz-hn-yzok time was at least 25 minutes. Mariusz Bhandari MD CNOV Observed: 05/18/2018 Status: COMPLETED Source: [place] 11:40 AM [facility] REPOSITORY Office Visit (INTMWS) NELLA CARLSON ([id number]) 1945 F Date Time Provider Department 05/18/18 11:40 AM MARIUSZ BHANDARI INTJosephWS During your visit today, we recorded the following information about you: Pulse Respiration Blood pressure Weight 92/minute 20/minute 100/76 71.7 kg Mariusz Bhandari MD 06/03/2018 8:31 PM Signed Patient presents with: Recheck: Follow up SUBJECTIVE: Nella Carlson is a 72 year old year old lady here today for 6 month follow up appointment for review of medical conditions. No energy Gets plenty of rest Gained weight. Got worse over the past summer. Doesn't feel like doing anything. Most nights sleeps through the night. Nocturia no more than once in a night. Gets 8 to 9 hours. Normal amount of sleep time as she needed before. Has been diagnosed with DONITA but not using CPAP or APAP. Did not tolerate when tried years ago. Arthritis is really bad. Bone on tops of feet cause pain from being fused. 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 Usually has a lot of energy--even last summer was able to work for hours. Wheezing noted when walks in house. Not really SOB unless doing something more strenuous. PAST MEDICAL HISTORY Diagnosis Date - Arthritis - DDD (degenerative disc disease) - Hemorrhoid - Hypercholesteremia - DONITA (obstructive sleep apnea) - Osteoporosis - Ovarian cyst, follicular 09/05/2014 followed by OCC MED PHYSICIAN with every 6 month pelvic US; last one 03/2014 - Plantar fasciitis, bilateral 09/05/2014 - Rectal bleeding - Snoring - Vitamin D deficiency Current Outpatient Prescriptions: fluticasone (FLONASE) 50 mcg/actuation nasal spray USE 1 SPRAY IN EACH NOSTRIL DAILY celecoxib (CELEBREX) 100 mg capsule Take 1 capsule by mouth once daily. DEXILANT 60 mg CpDM TAKE 1 CAPSULE DAILY olopatadine (PATANOL) 0.1 % ophthalmic solution Use 1 Drop in both eyes twice daily. VOLTAREN 1 % topical gel APPLY 2 GRAMS TO AFFECTED AREA FOUR TIMES A DAY lidocaine (LIDODERM) 5 % Apply 2 Patches as directed every 24 hours. Remove after 12 hours. Location: Lower back and knees. triamcinolone acetonide (KENALOG) 0.1 % cream Apply 1 application to affected area three times daily. As needed for rash. Apply sparingly to area for rash/itching. diphenoxylate-atropine (LOMOTIL) 2.5-0.025 mg per tablet Take 1 tablet by mouth twice daily as needed for Diarrhea. gabapentin (NEURONTIN) 400 mg capsule Take 1-2 capsules by mouth three times daily. meclizine (ANTIVERT) 25 mg tab Take 1 tablet by mouth every 6 hours as needed (dizziness). COMPOUNDED PRESCRIPTION methylcobalamin Cholecalciferol, Vitamin D3, 5,000 unit cap Take 1 capsule by mouth once daily. (took 2 daily since April appt) Methylsulfonylmethane (MSM) 1,000 mg tab Take 1 tablet by mouth once daily. Garlic tab Take 1 tablet by mouth. CINNAMON BARK (CINNAMON ORAL) Take by mouth. Oapjixsqwrf-YIQ-Zxnlfzerv-VitC cap Take by mouth. loratadine (CLARITIN) 10 mg tablet Take 10 mg by mouth once daily. CPAP BOSWELLIA RONDA EXTRACT (BOSWELLIA RONDA XT, BULK, MIS) 800 mg once daily. multivitamin (DAILY MULTI-VITAMIN) tablet Take 1 tablet by mouth once daily. VITAMIN E, DL,TOCOPHERYL ACET, (VITAMIN E, DL, ACETATE,) 400 unit cap Take 400 Units by mouth once daily. magnesium oxide (MAG-OX) 400 mg tablet Take 1 tablet by mouth once daily. zoledronic acid (RECLAST) 5 mg/100 mL pgbk PREMIX piggyback Inject 100 mL intravenously one time only for 1 dose. Ipratropium [place] (ATROVENT) 0.03 % nasal spray USE 1 TO 2 SPRAYS NASALLY EVERY 12 HOURS DIRECTED (Patient not taking: Reported on 05/18/2018) No current facility-administered medications for this visit. OBJECTIVE: BP 100/76 Pulse 92 Resp 20 Wt 71.7 kg (158 lb) BMI 31.91 kg/m? Patient is alert, oriented times 3, no apparent distress, affect is bright, reactive. Last 5 Encounter BP Readings: Date: BP: 05/18/2018 100/76 03/12/2018 118/84 01/16/2018 112/82 01/03/2018 112/83 01/02/2018 116/77 Last 5 Encounter Wt Readings: Date: Wt: 05/18/2018 71.7 kg (158 lb) 03/12/2018 72.6 kg (160 lb) 01/16/2018 71.7 kg (158 lb) 01/03/2018 71.7 kg (158 lb 1.1 oz) 01/02/2018 71.7 kg (158 lb) Heart: Regular rate, rhythm, no murmurs, gallops, rubs. Lungs: Clear to auscultation, bilaterally, breathing non labored. Ext: No cyanosis, clubbing, or edema. Component Latest Ref Rng AND Units 09/10/2014 09/28/2015 03/22/2016 10/10/2016 10/30/2017 Triglyceride <150 mg/dL 129 125 109 120 179 (H) Cholesterol, Total <200 mg/dL 197 249 (H) 294 (H) 234 (H) 240 (H) HDL Cholesterol >39 mg/dL 73 95 93 96 99 VLDL Cholesterol <30 mg/dL 26 25 22 24 36 (H) LDL Cholesterol <100 mg/dL 98 129 179 (H) 114 105 (H) Fasting Time hrs FASTING FASTING fasting 13 1 TC:HDL Ratio <5.10 2.70 2.62 3.16 2.44 2.42 LDL:HDL Ratio <2.54 1.34 1.36 1.92 1.19 1.06 Non HDL Cholesterol <130 mg/dL 124 154 201 (H) 138 141 (H) Component Latest Ref Rng AND Units 10/10/2016 04/12/2017 09/12/2017 05/14/2018 Protein, Total 6.3 - 8.0 g/dL 6.6 7.2 6.8 Albumin 3.9 - 4.9 g/dL 4.0 4.2 4.1 Calcium 8.5 - 10.2 mg/dL 9.0 9.5 9.5 9.5 Bilirubin, Total 0.2 - 1.3 mg/dL 0.6 0.4 0.6 Alkaline Phosphatase 34 - 123 U/L 72 58 43 AST 13 - 35 U/L 25 25 28 Glucose 74 - 99 mg/dL 78 69 (L) 117 (H) 85 BUN 7 - 21 mg/dL 18 23 (H) 21 18 Creatinine 0.58 - 0.96 mg/dL 0.80 0.85 0.95 0.92 Sodium 136 - 144 mmol/L 140 141 140 144 Potassium 3.7 - 5.1 mmol/L 4.4 4.2 4.0 4.0 Chloride 97 - 105 mmol/L 103 104 103 108 (H) CO2 22 - 30 mmol/L 24 23 22 25 Anion Gap 9 - 18 mmol/L 13 14 15 11 ALT 7 - 38 U/L 16 20 19 eGFR- >60 >60 >60 >60 eGFR-All Other Races . >60 >60 58 >60 WBC 3.70 - 11.00 k/uL 6.53 8.69 RBC 3.90 - 5.20 m/uL 4.46 4.91 Hemoglobin 11.5 - 15.5 g/dL 13.3 14.8 Hematocrit 36.0 - 46.0 % 42.7 46.6 (H) MCV 80.0 - 100.0 fL 95.7 94.9 MCH 26.0 - 34.0 pG 29.8 30.1 MCHC 30.5 - 36.0 g/dL 31.1 31.8 RDW-CV 11.5 - 15.0 % 14.6 13.9 Platelet Count 150 - 400 k/uL 335 372 MPV 9.0 - 12.7 fL 10.2 9.5 Absolute nRBC <0.01 k/uL <0.01 <0.01 Hemoglobin A1C 4.3 - 5.6 % 5.4 Estimated Average Glucose mg/dL 108 Vitamin D 25 Hydroxy 31.0 - 80.0 ng/mL 40.2 37.4 39.2 Magnesium 1.7 - 2.3 mg/dL 2.0 1.9 ASSESSMENT AND PLAN: Encounter Diagnosis ICD-10-CM 1. Fatigue, unspecified type R53.83 TSH BLD T4 FREE/FREE THYROX CBC 2. Daytime sleepiness R40.0 3. DONITA (obstructive sleep apnea)--untreated G47.33 4. Vitamin D deficiency E55.9 5. Hypercholesteremia E78.00 Above issues addressed with patient. Patient involved in shared decision making for management of medical issues. History and medications reviewed. Epic updated as needed Refills taken care of and meds adjusted as indicated after reviewed history, exam and labs. Health Maintenance reviewed. Updated record and/or ordered tests as recorded. Encouraged on efforts at healthy diet and regular exercise and adequate sleep. Needs to keep working on diet and exercise with lifestyle changes for effective weight loss as well as control of DM, and control of BP and lipids. See patient instructions. Update labs as noted above. Further evaluation and treatment as indicated for fatigue. Need to consider treating CPAP if fatigue getting worse and cannot find another treatable cause. The majority of the visit was spent counseling and/or coordinating care for the patient. Grvt-iq-tfwy time was at least 25 minutes. MD Mariusz Hicsk MD 05/18/2018 12:56 PM Addendum Can take Flonase 2 sprays at night time or increase up to twice daily to see if helps with using APAP. Consider trial on APAP again and treat the allergies and asthma. Okay to increase Vitamin D Referring Provider: MARIUSZ BHANDARI [[id number]] Allergies As of Date: 05/18/2018 Noted Allergy Reaction OXYCODONE 03/23/2015 8 - GI Upset LYRICA (PREGABALIN) 10/29/2014 8 - GI Upset SEASONAL ALLERGIES 11/16/2017 14 - Other: See Comments Comments: sneezing, runny nose, and headache Date Reviewed: 05/18/2018 Reviewed by: Delmy Luo LPN - Fully Assessed Reason for Visit: Recheck [92] Cmt: Follow up Primary Visit Diagnosis:Fatigue, unspecified type [R53.83] Other Visit Diagnoses:Daytime sleepiness [R40.0] DONITA (obstructive sleep apnea)--untreated [G47.33] Vitamin D deficiency [E55.9] Hypercholesteremia [E78.00] Order(s):TSH BLD [SQTSH] Order #: [id number] FUTURE T4 FREE/FREE THYROX [SQFT4] Order #: [id number] FUTURE CBC [SQCBC] Order #: [id number] FUTURE Prescriptions as of 05/18/2018 Sig: BOSWELLIA RONDA XT (BULK) M* 800 mg once daily. CELECOXIB 100 MG CAPSULE Take 1 capsule by mouth once * CHOLECALCIFEROL (VITAMIN D3) * Take 1 capsule by mouth once * CINNAMON ORAL Take by mouth. COMPOUNDED PRESCRIPTION methylcobalamin CPAP DEXILANT 60 MG CAPSULE, DELAY* TAKE 1 CAPSULE DAILY DIPHENOXYLATE-ATROPINE 2.5 MG* Take 1 tablet by mouth twice * FLUTICASONE 50 MCG/ACTUATION * USE 1 SPRAY IN EACH NOSTRIL D* GABAPENTIN 400 MG CAPSULE Take 1-2 capsules by mouth th* GARLIC TABLET Take 1 tablet by mouth. UYZDRGKRHLO-QGO-OMCGEEREA-VIT* Take by mouth. LIDOCAINE 5 % TOPICAL PATCH Apply 2 Patches as directed e* LORATADINE 10 MG TABLET Take 10 mg by mouth once heather* MAGNESIUM OXIDE 400 MG (241.3* Take 1 tablet by mouth once d* MECLIZINE 25 MG TABLET Take 1 tablet by mouth every * METHYLSULFONYLMETHANE 1,000 M* Take 1 tablet by mouth once d* MULTIVITAMIN TABLET Take 1 tablet by mouth once d* OLOPATADINE 0.1 % EYE DROPS Use 1 Drop in both eyes twice* TRIAMCINOLONE ACETONIDE 0.1 %* Apply 1 application to affect* VITAMIN E (DL, ACETATE) 400 U* Take 400 Units by mouth once * VOLTAREN 1 % TOPICAL GEL APPLY 2 GRAMS TO AFFECTED ARE* IPRATROPIUM BROMIDE 0.03 % NA* USE 1 TO 2 SPRAYS NASALLY DAPHNIE* Patient not taking: Reported on 05/18/2018 ZOLEDRONIC ACID 5 MG/100 ML I* Inject 100 mL intravenously o* Medication notes this encounter GABAPENTIN 400 MG CAPSULE >> Mariusz Bhandari MD 05/18/2018 1:07 PM >> MARIUSZ BHANDARI MD MonMay 18, 2018 1:07 PM Takes just 1 at bedtime IPRATROPIUM BROMIDE 0.03 % NASAL SPRAY >> Delmy Luo LPN 05/18/2018 12:28 PM >> DELMY LUO LPN MonMay 18, 2018 12:28 PM Problem List As Of Date 05/18/2018 Noted Resolved Ovarian cyst, follicular [N83.00] INVALID FOR*11/10/2016 More... 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 Class 1 obesity due to excess calories without *INVALID FOR* Other instructions from your clinician: Can take Flonase 2 sprays at night time or increase up to twice daily to see if helps with using APAP. Consider trial on APAP again and treat the allergies and asthma. Okay to increase Vitamin D Disposition: Return in about 6 months (around 11/15/2018) for 6 months follow up, With labs prior. Follow-up and Disposition History Recorded Encounter Status:Closed by MARIUSZ BHANDARI MD on 06/03/18 VITAMIN D 25 HYDROXY Collected: 05/14/2018 Status: F Source: [place] 9:18 AM [facility] REPOSITORY TYPE CODE TESTS RESULT OUT OF REFERENCE UNITS RANGE LAB VITD 31.0-80.0 ng/mL Vitamin D 25 39.2 Hydroxy Result Comment: Classification of 25 [place] Vitamin D status: Insufficiency/Moderate Deficiency: < or = 30 ng/mL Sufficiency/Optimal Levels: 31 to 80 ng/mL Toxicity: > 100 ng/mL Test performed by chemiluminescent immunoassay. Performed By: #### VITD, CMP, LIPNF, HBA1C #### [facility] [address], [place] [address] COMP METABOLIC PANEL Collected: 05/14/2018 Status: F Source: [place] 9:18 AM [facility] REPOSITORY TYPE CODE TESTS RESULT OUT OF REFERENCE UNITS RANGE LAB TP 6.3-8.0 g/dL Protein, Total 6.8 LAB ALB 3.9-4.9 g/dL Albumin 4.1 LAB CA 8.5-10.2 mg/dL Calcium, Total 9.5 LAB TBIL 0.2-1.3 mg/dL Bilirubin, Total 0.6 LAB ALKP 34-123 U/L Alkaline Phosphatase 43 LAB AST 13-35 U/L AST 28 LAB GLU 74-99 mg/dL Glucose 85 Result Comment: The [place] Diabetes Association (ADA) provides guidance for cutoff values for fasting glucose and random glucose. The ADA defines fasting as no caloric intake for at least 8 hours. Fas ting plasma glucose results between 100 to 125 mg/dL indicate increased risk for diabetes (prediabetes). Fasting plasma glucose results greater than or equal to 126 mg/dL meet the criteria for diagnosis of diabetes. In the absence of unequivocal hyperglycemia, results should be confirmed by repeat testing. In a patient with classic symptoms of hyperglycemia or hyperglycemic crisis, random plasma glucose results greater than or equal to 200 mg/dL meet the criteria for diagnosis of diabetes. Reference: Standards of Medical Care in Diabetes 2016, [place] Diabetes Association. Diabetes Care. 2016.39(Suppl 1). LAB BUN 7-21 mg/dL BUN 18 LAB CRET 0.58-0.96 mg/dL Creatinine 0.92 LAB NA 136-144 mmol/L Sodium 144 LAB K 3.7-5.1 mmol/L Potassium 4.0 LAB CL 97-105 mmol/L Chloride High 108 LAB CO2 22-30 mmol/L CO2 25 LAB AGAP 9-18 mmol/L Anion Gap 11 LAB ALT 7-38 U/L ALT 19 LAB GFRAA eGFR- Amer. >60 LAB GFRNAA . eGFR-All Other Races >60 Result Comment: eGFR (Estimated GFR) Units of measure: mL/min/1.73 meters squared eGFR is derived from the reexpressed MDRD Study equation using the following parameters: serum creatinine, age, gender and race. The creatinine assay has been calibrated to be traceable to IDMS. An eGFR <60 mL/min/1.73m2 for >3 months is consistent with chronic kidney disease. Refer to KDOQI guidelines for clinical interpretation. In patients with unstable renal function, e.g. those with acute kidney injury, the eGFR may not accurately reflect actual GFR. Performed By: #### VITD, CMP, LIPNF, HBA1C #### [facility] [address] [place], [place] [address] LIPID PANEL, NONFAST Collected: 05/14/2018 Status: F Source: [place] 9:18 AM [facility] REPOSITORY TYPE CODE TESTS RESULT OUT OF REFERENCE UNITS RANGE LAB CHOLNF <200 mg/dL Total High Cholesterol NF 261 Result Comment: <200 mg/dL, Desirable 200-239 mg/dL, Borderline high >239 mg/dL, High LAB TRIGNF <150 mg/dL Triglycerides, NF 96 Result Comment: <150 mg/dL, Normal 150-199 mg/dL, Borderline high 200-499 mg/dL, High >499 mg/dL, Very high LAB HDLNF >39 mg/dL HDL Cholesterol, NF 105 Result Comment: 40-59 mg/dL, Acceptable >59 mg/dL, High: Negative risk factor for coronary heart disease <40 mg/dL, Low: Positive risk factor for coronary heart disease LAB LDLNF <100 mg/dL LDL Cholesterol, High NF 137 Result Comment: <100 mg/dL, Optimal 100-129 mg/dL, Near optimal/above optimal 130-159 mg/dL, Borderline high 160-189 mg/dL, High >189 mg/dL, Very high Secondary prevention optimal LDL Cholesterol levels are recommended to be < 70 mg/dL LAB NOHDLN <130 mg/dL High Non HDL Chol, 156 NF Result Comment: <130 mg/dL, Optimal 130-159 mg/dL, Near optimal/above optimal 160-189 mg/dL, Borderline high 190-219 mg/dL, High >219 mg/dL, Very high Secondary prevention optimal non HDL Cholesterol levels are recommended to be < 100 mg/dL LAB VLDLNF <30 mg/dL VLDL Cholesterol, NF 19 LAB TCHDLN <5.10 mg/dL T Chol/HDL Ratio NF 2.49 LAB LDLHDN <2.54 mg/dL LDL/HDL Ratio, NF 1.30 Result Comment: Reference: 1. National Cholesterol Education Program ATP III Guideline At-A-Glance Quick Desk Reference: National Heart, Lung, and Blood [place]. National Institutes of Health. 2001: NIH Publication No. 01-3305. 2. An International Atherosclerosis Society position paper: global recommendations for the management of dyslipidemia: executive summary, Atherosclerosis. 2014: 232(2):410-413. Performed By: #### VITD, CMP, LIPNF, HBA1C #### [place] [facility] [address] [place], [place] [address] HEMOGLOBIN A1C Collected: 05/14/2018 Status: F Source: [place] 9:18 AM [facility] REPOSITORY TYPE CODE TESTS RESULT OUT OF REFERENCE UNITS RANGE LAB HGBA1C 4.3-5.6 % Hemoglobin A1c 5.4 Result Comment: [place] Diabetes Association guidelines indicate that patients with HgbA1c in the range 5.7-6.4% are at increased risk for development of diabetes, and intervention by lifestyle modification may be beneficial. HgbA1c greater or equal to 6.5% is considered diagnostic of diabetes. LAB HBA0 mg/dL Est. Average Glucose 108 Result Comment: eAG: (Estimated average glucose) is a calculated value from HgbA1c and is retail wireless sales representative of the average blood glucose level in the last 2-3 month period. Performed By: #### VITD, CMP, LIPNF, HBA1C #### [facility] [address] [place], [place] [id number] CERV SPINE 2 OR 3 Observed: 03/15/2018 Status: F Source: [place] VIEWS 4:33 PM [facility] REPOSITORY [facility] Imaging Services [address] [place] [address] Cerv Spine 2 or 3 Views MR#: [id number] Acct: [id number] Name: NELLA CARLSON Tina Rep #: [id number] : 1945 F 72 From: Akbar Gillette MD PCP: Mariusz Bhandari MD Status: REG CLI Study: Cerv Spine 2 or 3 Views Date of Exam: 03/15/18 Exam# [id number] Ordering Dr: Martha Lopez MD STUDY: X-RAY - CERVICAL SPINE REASON FOR EXAM: Female, 72 years old. Neck and chest pain TECHNIQUE: For view(s) of the cervical spine were obtained. COMPARISON: None FINDINGS: Normal anterior atlantoaxial articulation. Normal odontoid process. Normal cervical lordosis. There is multi-level endplate spondylosis. There is multi-level degenerative disc disease with multilevel disc space narrowing. The soft tissue structures are unremarkable. RAD/Cerv Spine 2 or 3 Views IMPRESSION: Multilevel degenerative changes Electronically Signed: Rad Gillette MD at 13:50 EDT , Service support , CC: Martha Lopez MD; Mariusz Bhandari MD Car Whacker: Signed PROGRESS Observed: 03/12/2018 Status: COMPLETED Source: [place] 1:24 PM [facility] REPOSITORY HNO ID: [id number] Author: Felipa (Cassandra) Michelle Service: (none) Author Type: Nurse Practitioner Type: Progress Notes Filed: 03/12/2018 2:31 PM Note Text: Nella Carlson a 72 year old female who is returning for follow up regarding dysphagia and GERD symptoms. I saw the patient in consultation on 01/02/18. That note has been reviewed. The patient was seen by Dr. Herrera for upper endoscopy 01/22/18. The procedure report has been reviewed and findings as follows: Impression: ? ? - Normal esophagus. ? - Normal stomach. Biopsied. ? - Normal examined duodenum. FINAL DIAGNOSIS Stomach, antrum, biopsy - Mild chronic inactive gastritis. - Negative for H. pylori organisms on immunostain. I have reviewed the procedure and pathology reports, as well as the images, with the patient. Presenting complaint: The patient presents today reporting she has to stop eating, usually during most dinners, because she feels food has backed up. She states I have to sit there and wait for the food to move down. She denies any pain when eating. She tells me my sister actually has pain when she eats. The patient had a swallowing evaluation on 11/17/17. I have reviewed it with her. COMPENSATORY STRATEGIES RECOMMENDED: Reduced bolus volume, liquid chaser at reasonable intervals, seated upright at 90 degrees during PO intake, remain upright for 30-60 minutes post meal (GERD precaution), avoid intake 2-3 hours prior to bedtime (GERD precaution) The patient informs me that she doesn't drink anything when eating. She tells me that she read somewhere that you shouldn't. I have stressed that she needs to start drinking water or something with her meals. She is agreeable to giving it a try. REVIEW OF SYSTEMS: GENERAL: No weight loss, malaise or fevers GI: The patient states that her appetite has been adequate. She does get hungry. There has been no nausea, no vomiting. She admits to dysphagia as reported earlier. She denies odynophagia. There has not been indigestion or heartburn. There has not been regurgitation. Bowel habits have been regular. There has not been diarrhea. There has not been constipation. The patient denies rectal bleeding. There has not been melena. No abdominal pain. All other reviewed and negative other than HPI. PAST MEDICAL HISTORY Diagnosis Date - Arthritis - DDD (degenerative disc disease) - Hemorrhoid - Hypercholesteremia - DONITA (obstructive sleep apnea) - Osteoporosis - Ovarian cyst, follicular 09/05/2014 followed by [facility] PHYSICIAN with every 6 month pelvic US; last one 03/2014 - Plantar fasciitis, bilateral 09/05/2014 - Rectal bleeding - Snoring - Vitamin D deficiency PAST SURGICAL HISTORY Procedure Laterality Date - COLONOSCOP W/ OR W/O [facility] SPEC 07/30/15 Colonoscopy (MAC) - COLONOSCOPY multiple - EGD - EGD W/O OR W/BRUSH/WASH 01/22/2018 EGD - PAST SURGICAL HISTORY OF Left 2010 Left shoulder arthroscopy - PAST SURGICAL HISTORY OF Partial hysterectomy - PAST SURGICAL HISTORY OF 03/2015 knee replacement left - REMOVE TONSILS/ADENOIDS,12+ Y/O 1984 T/A (over age 13 years) - ROTATOR CUFF REPAIR 2005 Right shoulder - TOTAL HIP REPLACEMENT 2010 Hip replacement, total sondra FAMILY HISTORY Problem Relation Age of Onset - Heart Mother PA - Diabetes Mother - Heart Father PA - Kidney Disease Father Current Outpatient Prescriptions: celecoxib (CELEBREX) 100 mg capsule Take 1 capsule by mouth once daily. Disp: 90 capsule Rfl: 1 DEXILANT 60 mg CpDM TAKE 1 CAPSULE DAILY Disp: 90 capsule Rfl: 3 zoledronic acid (RECLAST) 5 mg/100 mL pgbk PREMIX piggyback Inject 100 mL intravenously one time only for 1 dose. Disp: 100 mL Rfl: 0 olopatadine (PATANOL) 0.1 % ophthalmic solution Use 1 Drop in both eyes twice daily. Disp: 3 Bottle Rfl: 3 VOLTAREN 1 % topical gel APPLY 2 GRAMS TO AFFECTED AREA FOUR TIMES A DAY Disp: 200 g Rfl: 3 Ipratropium [place] (ATROVENT) 0.03 % nasal spray USE 1 TO 2 SPRAYS NASALLY EVERY 12 HOURS DIRECTED Disp: 90 mL Rfl: 0 lidocaine (LIDODERM) 5 % Apply 2 Patches as directed every 24 hours. Remove after 12 hours. Location: Lower back and knees. Disp: 180 Patch Rfl: 3 triamcinolone acetonide (KENALOG) 0.1 % cream Apply 1 application to affected area three times daily. As needed for rash. Apply sparingly to area for rash/itching. Disp: 45 g Rfl: 0 diphenoxylate-atropine (LOMOTIL) 2.5-0.025 mg per tablet Take 1 tablet by mouth twice daily as needed for Diarrhea. Disp: 90 tablet Rfl: 3 gabapentin (NEURONTIN) 400 mg capsule Take 1-2 capsules by mouth three times daily. Disp: 540 capsule Rfl: 3 meclizine (ANTIVERT) 25 mg tab Take 1 tablet by mouth every 6 hours as needed (dizziness). Disp: 15 tablet Rfl: 0 fluticasone (FLONASE) 50 mcg/actuation nasal spray USE 1 SPRAY IN EACH NOSTRIL DAILY (Patient not taking: Reported on 11/16/2017) Disp: 48 g Rfl: 3 COMPOUNDED PRESCRIPTION methylcobalamin Disp: Rfl: Cholecalciferol, Vitamin D3, 5,000 unit cap Take 1 capsule by mouth once daily. (took 2 daily since April appt) Disp: Rfl: Methylsulfonylmethane (MSM) 1,000 mg tab Take 1 tablet by mouth once daily. Disp: Rfl: 0 Garlic tab Take 1 tablet by mouth. Disp: Rfl: CINNAMON BARK (CINNAMON ORAL) Take by mouth. Disp: Rfl: Kwyvmyvalze-FBB-Eajzuldeh-VitC cap Take by mouth. Disp: Rfl: loratadine (CLARITIN) 10 mg tablet Take 10 mg by mouth once daily. Disp: Rfl: CPAP Disp: Rfl: BOSWELLIA RONDA EXTRACT (BOSWELLIA RONDA XT, BULK, MISC) 800 mg once daily. Disp: Rfl: multivitamin (DAILY MULTI-VITAMIN) tablet Take 1 tablet by mouth once daily. Disp: Rfl: 0 VITAMIN E, DL,TOCOPHERYL ACET, (VITAMIN E, DL, ACETATE,) 400 unit cap Take 400 Units by mouth once daily. Disp: Rfl: 0 magnesium oxide (MAG-OX) 400 mg tablet Take 1 tablet by mouth once daily. Disp: Rfl: 0 No current facility-administered medications for this visit. SOCIAL HISTORY: Unchanged PHYSICAL EXAMINATION: Blood pressure 118/84, pulse 109, height 149.9 cm (4' 11), weight 72.6 kg (160 lb). General Appearance: Well appearing, alert, in no acute distress, well-hydrated, well nourished. Skin: Skin color, texture, turgor normal, no suspicious rashes or lesions. Head: Normocephalic, no masses, lesions or abnormalities. Eyes: Anicteric sclera. Neck: Supple, no adenopathy . Lungs: Lungs clear to auscultation. Heart: RRR without murmur. Impression: dysphagia Plan: The patient will continue PPI. She will start drinking liquid with meals. She will follow up as needed. She agrees with this plan. I have personally interviewed and examined this patient. I have reviewed the information that the MA entered for this encounter. I spent 25 minutes in the visit, with greater than 50% of the total imdo-bd-tdnz time of the visit in counseling and coordination of care. Felipa Martinez RN APRN.BEV CNOV Observed: 03/12/2018 Status: COMPLETED Source: [place] 1:20 PM [facility] REPOSITORY [facility] NELLA CARLSON ([id number]) 1945 F Date Time Provider Department 03/12/18 1:20 PM FELIPA MARTINEZ (BIT SHAVER) [facility] During your visit today, we recorded the following information about you: Pulse Blood pressure Weight Height 109/minute 118/84 72.6 kg 1.499 m Felipa Martinez RN APRN.BEV 03/12/2018 2:31 PM Signed Nella Carlson a 72 year old female who is returning for follow up regarding dysphagia and GERD symptoms. I saw the patient in consultation on 01/02/18. That note has been reviewed. The patient was seen by Dr. Herrera for upper endoscopy 01/22/18. The procedure report has been reviewed and findings as follows: Impression: ? ? - Normal esophagus. ? - Normal stomach. Biopsied. ? - Normal examined duodenum. FINAL DIAGNOSIS Stomach, antrum, biopsy - Mild chronic inactive gastritis. - Negative for H. pylori organisms on immunostain. I have reviewed the procedure and pathology reports, as well as the images, with the patient. Presenting complaint: The patient presents today reporting she has to stop eating, usually during most dinners, because she feels food has backed up. She states I have to sit there and wait for the food to move down. She denies any pain when eating. She tells me my sister actually has pain when she eats. The patient had a swallowing evaluation on 11/17/17. I have reviewed it with her. COMPENSATORY STRATEGIES RECOMMENDED: Reduced bolus volume, liquid chaser at reasonable intervals, seated upright at 90 degrees during PO intake, remain upright for 30-60 minutes post meal (GERD precaution), avoid intake 2-3 hours prior to bedtime (GERD precaution) The patient informs me that she doesn't drink anything when eating. She tells me that she read somewhere that you shouldn't. I have stressed that she needs to start drinking water or something with her meals. She is agreeable to giving it a try. REVIEW OF SYSTEMS: GENERAL: No weight loss, malaise or fevers GI: The patient states that her appetite has been adequate. She does get hungry. There has been no nausea, no vomiting. She admits to dysphagia as reported earlier. She denies odynophagia. There has not been indigestion or heartburn. There has not been regurgitation. Bowel habits have been regular. There has not been diarrhea. There has not been constipation. The patient denies rectal bleeding. There has not been melena. No abdominal pain. All other reviewed and negative other than HPI. PAST MEDICAL HISTORY Diagnosis Date - Arthritis - DDD (degenerative disc disease) - Hemorrhoid - Hypercholesteremia - DONITA (obstructive sleep apnea) - Osteoporosis - Ovarian cyst, follicular 09/05/2014 followed by OCC MED PHYSICIAN with every 6 month pelvic US; last one 03/2014 - Plantar fasciitis, bilateral 09/05/2014 - Rectal bleeding - Snoring - Vitamin D deficiency PAST SURGICAL HISTORY Procedure Laterality Date - COLONOSCOP W/ OR W/O [facility] SPEC 07/30/15 Colonoscopy (MAC) - COLONOSCOPY multiple - EGD - EGD W/O OR W/BRUSH/WASH 01/22/2018 EGD - PAST SURGICAL HISTORY OF Left 2010 Left shoulder arthroscopy - PAST SURGICAL HISTORY OF Partial hysterectomy - PAST SURGICAL HISTORY OF 03/2015 knee replacement left - REMOVE TONSILS/ADENOIDS,12+ Y/O 1985 T/A (over age 13 years) - ROTATOR CUFF REPAIR 2005 Right shoulder - TOTAL HIP REPLACEMENT 2010 Hip replacement, total sondra FAMILY HISTORY Problem Relation Age of Onset - Heart Mother PA - Diabetes Mother - Heart Father PA - Kidney Disease Father Current Outpatient Prescriptions: celecoxib (CELEBREX) 100 mg capsule Take 1 capsule by mouth once daily. Disp: 90 capsule Rfl: 1 DEXILANT 60 mg CpDM TAKE 1 CAPSULE DAILY Disp: 90 capsule Rfl: 3 zoledronic acid (RECLAST) 5 mg/100 mL pgbk PREMIX piggyback Inject 100 mL intravenously one time only for 1 dose. Disp: 100 mL Rfl: 0 olopatadine (PATANOL) 0.1 % ophthalmic solution Use 1 Drop in both eyes twice daily. Disp: 3 Bottle Rfl: 3 VOLTAREN 1 % topical gel APPLY 2 GRAMS TO AFFECTED AREA FOUR TIMES A DAY Disp: 200 g Rfl: 3 Ipratropium [place] (ATROVENT) 0.03 % nasal spray USE 1 TO 2 SPRAYS NASALLY EVERY 12 HOURS DIRECTED Disp: 90 mL Rfl: 0 lidocaine (LIDODERM) 5 % Apply 2 Patches as directed every 24 hours. Remove after 12 hours. Location: Lower back and knees. Disp: 180 Patch Rfl: 3 triamcinolone acetonide (KENALOG) 0.1 % cream Apply 1 application to affected area three times daily. As needed for rash. Apply sparingly to area for rash/itching. Disp: 45 g Rfl: 0 diphenoxylate-atropine (LOMOTIL) 2.5-0.025 mg per tablet Take 1 tablet by mouth twice daily as needed for Diarrhea. Disp: 90 tablet Rfl: 3 gabapentin (NEURONTIN) 400 mg capsule Take 1-2 capsules by mouth three times daily. Disp: 540 capsule Rfl: 3 meclizine (ANTIVERT) 25 mg tab Take 1 tablet by mouth every 6 hours as needed (dizziness). Disp: 15 tablet Rfl: 0 fluticasone (FLONASE) 50 mcg/actuation nasal spray USE 1 SPRAY IN EACH NOSTRIL DAILY (Patient not taking: Reported on 11/16/2017) Disp: 48 g Rfl: 3 COMPOUNDED PRESCRIPTION methylcobalamin Disp: Rfl: Cholecalciferol, Vitamin D3, 5,000 unit cap Take 1 capsule by mouth once daily. (took 2 daily since April appt) Disp: Rfl: Methylsulfonylmethane (MSM) 1,000 mg tab Take 1 tablet by mouth once daily. Disp: Rfl: 0 Garlic tab Take 1 tablet by mouth. Disp: Rfl: CINNAMON BARK (CINNAMON ORAL) Take by mouth. Disp: Rfl: Xjwghpavwqf-XTA-Ffmmfvgub-VitC cap Take by mouth. Disp: Rfl: loratadine (CLARITIN) 10 mg tablet Take 10 mg by mouth once daily. Disp: Rfl: CPAP Disp: Rfl: BOSWELLIA RONDA EXTRACT (BOSWELLIA RONDA XT, BULK, MISC) 800 mg once daily. Disp: Rfl: multivitamin (DAILY MULTI-VITAMIN) tablet Take 1 tablet by mouth once daily. Disp: Rfl: 0 VITAMIN E, DL,TOCOPHERYL ACET, (VITAMIN E, DL, ACETATE,) 400 unit cap Take 400 Units by mouth once daily. Disp: Rfl: 0 magnesium oxide (MAG-OX) 400 mg tablet Take 1 tablet by mouth once daily. Disp: Rfl: 0 No current facility-administered medications for this visit. SOCIAL HISTORY: Unchanged PHYSICAL EXAMINATION: Blood pressure 118/84, pulse 109, height 149.9 cm (4' 11), weight 72.6 kg (160 lb). General Appearance: Well appearing, alert, in no acute distress, well-hydrated, well nourished. Skin: Skin color, texture, turgor normal, no suspicious rashes or lesions. Head: Normocephalic, no masses, lesions or abnormalities. Eyes: Anicteric sclera. Neck: Supple, no adenopathy . Lungs: Lungs clear to auscultation. Heart: RRR without murmur. Impression: dysphagia Plan: The patient will continue PPI. She will start drinking liquid with meals. She will follow up as needed. She agrees with this plan. I have personally interviewed and examined this patient. I have reviewed the information that the MA entered for this encounter. I spent 25 minutes in the visit, with greater than 50% of the total bpsj-xo-iwqu time of the visit in counseling and coordination of care. Felipa Martinez RN SOIL CONSERVATION AIDE.BEV Martinez RN SOIL CONSERVATION AIDE.BEV 03/12/2018 1:38 PM Signed Normal endoscopy. Swallowing evaluation recommends that you take smaller bites. Tree bites with liquid at reasonable intervals. Stay sitting up for 30-60 minutes after eating. Don't eat less than 203 hours before bed. Continue Dexilant. Referring Provider: FELIPA MARTINEZ (CASSANDRA) [[id number]] Allergies As of Date: 03/12/2018 Noted Allergy Reaction OXYCODONE 03/23/2015 8 - GI Upset LYRICA (PREGABALIN) 10/29/2014 8 - GI Upset SEASONAL ALLERGIES 11/16/2017 14 - Other: See Comments Comments: sneezing, runny nose, and headache Date Reviewed: 03/12/2018 Reviewed by: Rita Gracia Ma - Fully Assessed Reason for Visit: Surgical Followup [104] Primary Visit Diagnosis:Oropharyngeal dysphagia [R13.12] Prescriptions as of 03/12/2018 Sig: CELECOXIB 100 MG CAPSULE Take 1 capsule by mouth once * DEXILANT 60 MG CAPSULE, DELAY* TAKE 1 CAPSULE DAILY ZOLEDRONIC ACID 5 MG/100 ML I* Inject 100 mL intravenously o* OLOPATADINE 0.1 % EYE DROPS Use 1 Drop in both eyes twice* VOLTAREN 1 % TOPICAL GEL APPLY 2 GRAMS TO AFFECTED ARE* IPRATROPIUM BROMIDE 0.03 % NA* USE 1 TO 2 SPRAYS NASALLY DAPHNIE* LIDOCAINE 5 % TOPICAL PATCH Apply 2 Patches as directed e* TRIAMCINOLONE ACETONIDE 0.1 %* Apply 1 application to affect* DIPHENOXYLATE-ATROPINE 2.5 MG* Take 1 tablet by mouth twice * GABAPENTIN 400 MG CAPSULE Take 1-2 capsules by mouth th* MECLIZINE 25 MG TABLET Take 1 tablet by mouth every * FLUTICASONE 50 MCG/ACTUATION * USE 1 SPRAY IN EACH NOSTRIL D* Patient not taking: Reported on 11/16/2017 COMPOUNDED PRESCRIPTION methylcobalamin CHOLECALCIFEROL (VITAMIN D3) * Take 1 capsule by mouth once * METHYLSULFONYLMETHANE 1,000 M* Take 1 tablet by mouth once d* GARLIC TABLET Take 1 tablet by mouth. CINNAMON ORAL Take by mouth. HOTSWFYNQBG-FTW-KSBAATFIG-VIT* Take by mouth. LORATADINE 10 MG TABLET Take 10 mg by mouth once heather* CPAP BOSWELLIA RONDA XT (BULK) M* 800 mg once daily. MULTIVITAMIN TABLET Take 1 tablet by mouth once d* VITAMIN E (DL, ACETATE) 400 U* Take 400 Units by mouth once * MAGNESIUM OXIDE 400 MG (241.3* Take 1 tablet by mouth once d* Problem List As Of Date 03/12/2018 Noted Resolved Ovarian cyst, follicular [N83.00] INVALID FOR*11/10/2016 More... Plantar fasciitis, bilateral [M72.2] INVALID FOR* Osteoporosis [M81.0] Vitamin D deficiency [E55.9] Diffuse myofascial pain syndrome [M79.1] INVALID FOR* Chronic pain [G89.29] INVALID FOR* Generalized OA [M15.9] INVALID FOR* Arthritis of knee [M17.10] INVALID FOR*02/27/2017 Pain in joint, pelvic region and thigh [M25.559]INVALID FOR* DONITA on CPAP [G47.33, Z99.89] INVALID FOR*02/27/2017 GERD (gastroesophageal reflux disease) [K21.9] INVALID FOR* Arthropathy, lower leg [YTJ9327] INVALID FOR*03/23/2015 Hypercholesteremia [E78.00] Rectal bleeding [K62.5] Status post total left knee replacement [Z96.65*INVALID FOR*02/27/2017 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 Class 1 obesity due to excess calories without *INVALID FOR* Other instructions from your clinician: Normal endoscopy. Swallowing evaluation recommends that you take smaller bites. Tree bites with liquid at reasonable intervals. Stay sitting up for 30-60 minutes after eating. Don't eat less than 203 hours before bed. Continue Dexilant. Encounter Status:Closed by FELIPA MARTINEZ CNP on 03/12/18 PROGRESS Observed: 01/25/2018 Status: COMPLETED Source: [place] 3:16 PM [facility] REPOSITORY HNO ID: [id number] Author: Zeyad Stratton Service: (none) Author Type: Physician Type: Progress Notes Filed: 02/15/2018 8:06 AM Note Text: Zeyad Stratton MD Department of Orthopaedics [facility] [address] [place] [address] Dept: [phone] Dept January 25, 2018 CHIEF COMPLAINT: New problem (left shoulder pain, xray 01-16-18, REF: CherylMaxwell Tee, last seen 11-16-17 series of Euflexxa right knee) Ms. Nella Carlson is a 72 year old female who presents with a new problem in the left shoulder. He began to bother her about 2 weeks ago. No specific injury nor trauma that she recalls. She's been using ice along with her Celebrex and gabapentin. 0-6 out of 10 pain and when it happens that sharp. She is right-hand dominant. She did have previous shoulder surgery back in 2010. ASSESSMENT: M25.512 Acute pain of left shoulder (primary encounter diagnosis) M75.42 Impingement syndrome of left shoulder PLAN: she is presenting with signs and symptoms of impingement. She would like to try cortisone injection today. Ms. Nella Carlson was advised as to contrast therapies and/or to take analgesics/anti-inflammatories as needed and all contraindications were reviewed. OBJECTIVE: Ms. Nella Carlson is a pleasant 72 year old in no apparent distress. Gen:There were no vitals taken for this visit. nl development, non obese, no deformities ENT: Normocephalic, normal hearing, moist mucosa CV: Pulses:Radial= 2+ and symmetric, capillary refill < 2 secs, no peripheral edema/varicosities Skin: no rash, bruising or lesions. Good turgor. Psych: cooperative and appropriate, alert and oriented x 3, good mood and affect. Musculoskeletal: Supple range of motion of the cervical spine without pain. Spurling signs are negative. No atrophy of the deltoid and shoulder musculature. previous surgical scars noted without concerns.left shoulder is nontender to palpation over the SC joint, clavicle and mild tenderness over the previous AC joint. no tenderness to palpation over the posterior shoulder, positive tenderness to palpation over the anterior lateral corner of the shoulder and greater tuberosity. nonpainful at the bicipital groove and coracoid. Active range of motion is 160? of forward elevation, 50? external rotation, and internal rotation to the low lumbar spine. Passive range of motion is symmetrical, limited by pain, respectively. No laxity with anterior and posterior stress. positive Neer and Godwin impingement signs. 4+/5 strength with supraspinatus, 5/5 infraspinatus and subscapularis. Sensation is intact in the axillary, radial, median and ulnar nerve distribution The risk, benefits and alternatives of injection and no injection therapy were discussed. The patient consented for an injection. Time out was conducted. The injection site was prepped with a Chlorhexadine swab. The left Subacromial joint was injected with a 25 gauge needle with 1 cc Celestone (6 mg), and 5 cc Marcaine 0.5%. The injection site was then dressed with a bandaid. The patient tolerated the injection well. The patient was instructed to call the office if any adverse local effects occurred or any if any questions or concerns arise. Zeyad Stratton MD Imaging: IMPRESSION: 1. ?Mild glenohumeral DJD 2. ?Cervical spondylosis with foraminal stenoses Car Whacker: ELVIRA ? Transcribe Date/Time: Jan ?4:38P Dictated by : JENNIFER SOLIS MD This examination was interpreted and the report reviewed and electronically signed by: JENNIFER SOLIS MD on Jan ?4:51PM ?EST Results-Findings * * *Final Report* * * DATE OF EXAM: Jan 16 2018 ?3:33PM ? WRX ? [id number] ?- ?XR SHOULDER 2V AP/TRUE AP LT ?/ PROCEDURE REASON: Pain in left shoulder ?? ? * * * * Physician Interpretation * * * * ?LEFT SHOULDER - 01/16/2018 3:33 PM TECHNIQUE: 2 views (AP, Grashey) HISTORY - Clinical Information/Indication: Left shoulder/upper arm pain since Monday; no injury COMPARED WITH: 12/25/2008 DICOM import chest x-ray; 10/29/2014 cervical spine x-rays RESULT: The slightly widened appearance of the acromioclavicular joint space is grossly unchanged compared with the 2008 outside chest x-ray. ?The coracoclavicular and acromiohumeral joints appear intact. ?There is mild glenohumeral joint space narrowing with minimal marginal osteophytosis. ? No periarticular soft tissue calcification is seen. There is severe multilevel hypertrophic DJD of the cervical spine. ?The October 2014 bilateral cervical spine images demonstrate multilevel significant neural foraminal stenoses. Supporting Subjective Information Below: Past Surgical History: PAST SURGICAL HISTORY Procedure Laterality Date - COLONOSCOP W/ OR W/O [facility] SPEC 07/30/15 Colonoscopy (MAC) - COLONOSCOPY multiple - EGD - EGD W/O OR W/BRUSH/WASH 01/22/2018 EGD - PAST SURGICAL HISTORY OF Left 2010 Left shoulder arthroscopy - PAST SURGICAL HISTORY OF Partial hysterectomy - PAST SURGICAL HISTORY OF 03/2015 knee replacement left - REMOVE TONSILS/ADENOIDS,12+ Y/O 1984 T/A (over age 13 years) - ROTATOR CUFF REPAIR 2005 Right shoulder - TOTAL HIP REPLACEMENT 2010 Hip replacement, total sondra Medications: Current Outpatient Prescriptions: celecoxib (CELEBREX) 100 mg capsule Take 1 capsule by mouth once daily. DEXILANT 60 mg CpDM TAKE 1 CAPSULE DAILY olopatadine (PATANOL) 0.1 % ophthalmic solution Use 1 Drop in both eyes twice daily. VOLTAREN 1 % topical gel APPLY 2 GRAMS TO AFFECTED AREA FOUR TIMES A DAY Ipratropium [place] (ATROVENT) 0.03 % nasal spray USE 1 TO 2 SPRAYS NASALLY EVERY 12 HOURS DIRECTED lidocaine (LIDODERM) 5 % Apply 2 Patches as directed every 24 hours. Remove after 12 hours. Location: Lower back and knees. triamcinolone acetonide (KENALOG) 0.1 % cream Apply 1 application to affected area three times daily. As needed for rash. Apply sparingly to area for rash/itching. diphenoxylate-atropine (LOMOTIL) 2.5-0.025 mg per tablet Take 1 tablet by mouth twice daily as needed for Diarrhea. gabapentin (NEURONTIN) 400 mg capsule Take 1-2 capsules by mouth three times daily. meclizine (ANTIVERT) 25 mg tab Take 1 tablet by mouth every 6 hours as needed (dizziness). COMPOUNDED PRESCRIPTION methylcobalamin Cholecalciferol, Vitamin D3, 5,000 unit cap Take 1 capsule by mouth once daily. (took 2 daily since April appt) Methylsulfonylmethane (MSM) 1,000 mg tab Take 1 tablet by mouth once daily. Garlic tab Take 1 tablet by mouth. CINNAMON BARK (CINNAMON ORAL) Take by mouth. Wymdzakhbju-XDS-Atidifctr-VitC cap Take by mouth. loratadine (CLARITIN) 10 mg tablet Take 10 mg by mouth once daily. BOSWELLIA RONDA EXTRACT (BOSWELLIA RONDA XT, BULK, MISC) 800 mg once daily. multivitamin (DAILY MULTI-VITAMIN) tablet Take 1 tablet by mouth once daily. VITAMIN E, DL,TOCOPHERYL ACET, (VITAMIN E, DL, ACETATE,) 400 unit cap Take 400 Units by mouth once daily. magnesium oxide (MAG-OX) 400 mg tablet Take 1 tablet by mouth once daily. zoledronic acid (RECLAST) 5 mg/100 mL pgbk PREMIX piggyback Inject 100 mL intravenously one time only for 1 dose. fluticasone (FLONASE) 50 mcg/actuation nasal spray USE 1 SPRAY IN EACH NOSTRIL DAILY (Patient not taking: Reported on 11/16/2017) CPAP Current Facility-Administered Medications: [COMPLETED] betamethasone acetate-betamethasone sodium phosphate 6 mg, bupivacaine (PF) 25 mg INTRA-ARTICULAR ONCE Allergies: Oxycodone; Lyrica [Pregabalin]; Seasonal Allergies ROS: General (negative for fatigue, malaise, weight loss/gain) HEENT (negative for headache, earache, recent vision changes, sinus pain, sore throat) Respiratory (no recent shortness of breath, hemoptysis) CV (negative for chest tightness, palpitations) Musculoskeletal (see HPI) Psych (no depression, anxiety) This note was partially generated using Aubrey voice recognition system, and there may be some incorrect words, spellings, and punctuation that were not noted in checking the note before saving. Zeyad Stratton MD PROGRESS Observed: 01/25/2018 Status: COMPLETED Source: [place] 2:36 PM [facility] REPOSITORY O ID: [id number] Author: Rhea Vick RN Service: (none) Author Type: (none) Type: Progress Notes Filed: 02/15/2018 8:06 AM Note Text: AMB ROOMING INTAKE FLOWSHEET DATA Pain Pain Score: (0-6) Pain Location: Shoulder-Left Description: Sharp Duration Amount of Time: 2 Duration Units: Weeks Frequency: Intermittent Intervention: Cold Patient presents with: New problem: left shoulder pain, xray 01-16-18, REF: Silvana Tee, last seen 11-16-17 series of Euflexxa right knee Pt. states left shoulder pain began suddenly approximately 2 weeks ago. She does not recall a specific injury. She has been using ice, Voltaren gel, Celebrex and gabapentin with some relief, and now only has pain with movement, in shoulder joint and behind shoulder. She is right hand dominant. States she had OR on left shoulder in 2010 in [place] and had part of my clavicle removed. CNOV Observed: 01/25/2018 Status: COMPLETED Source: [place] 2:10 PM [facility] REPOSITORY Office Visit (ORTHWS) NELLA CARLSON ([id number]) 1945 F Date Time Provider Department 01/25/18 2:10 PM ZEYAD STRATTON During your visit today, we recorded the following information about you: Rhea Vick RN 02/15/2018 8:06 AM Signed AMB ROOMING INTAKE FLOWSHEET DATA Pain Pain Score: (0-6) Pain Location: Shoulder-Left Description: Sharp Duration Amount of Time: 2 Duration Units: Weeks Frequency: Intermittent Intervention: Cold Patient presents with: New problem: left shoulder pain, xray 01-16-18, REF: Silvana Tee, last seen 11-16-17 series of Euflexxa right knee Pt. states left shoulder pain began suddenly approximately 2 weeks ago. She does not recall a specific injury. She has been using ice, Voltaren gel, Celebrex and gabapentin with some relief, and now only has pain with movement, in shoulder joint and behind shoulder. She is right hand dominant. States she had OR on left shoulder in 2010 in [place] and had part of my clavicle removed. Zeyad Stratton MD 02/15/2018 8:06 AM Signed Zeyad Stratton MD Department of Orthopaedics Orthopaedics [address] [place] [id number] Dept: [phone] Dept January 25, 2018 CHIEF COMPLAINT: New problem (left shoulder pain, xray 01-16-18, REF: Silvana Tee, last seen 11-16-17 series of Euflexxa right knee) Ms. Nella Carlson is a 72 year old female who presents with a new problem in the left shoulder. He began to bother her about 2 weeks ago. No specific injury nor trauma that she recalls. She's been using ice along with her Celebrex and gabapentin. 0-6 out of 10 pain and when it happens that sharp. She is right-hand dominant. She did have previous shoulder surgery back in 2010. ASSESSMENT: M25.512 Acute pain of left shoulder (primary encounter diagnosis) M75.42 Impingement syndrome of left shoulder PLAN: she is presenting with signs and symptoms of impingement. She would like to try cortisone injection today. Ms. Nella Carlson was advised as to contrast therapies and/or to take analgesics/anti-inflammatories as needed and all contraindications were reviewed. OBJECTIVE: Ms. Nella Carlson is a pleasant 72 year old in no apparent distress. Gen:There were no vitals taken for this visit. nl development, non obese, no deformities ENT: Normocephalic, normal hearing, moist mucosa CV: Pulses:Radial= 2+ and symmetric, capillary refill < 2 secs, no peripheral edema/varicosities Skin: no rash, bruising or lesions. Good turgor. Psych: cooperative and appropriate, alert and oriented x 3, good mood and affect. Musculoskeletal: Supple range of motion of the cervical spine without pain. Spurling signs are negative. No atrophy of the deltoid and shoulder musculature. previous surgical scars noted without concerns.left shoulder is nontender to palpation over the SC joint, clavicle and mild tenderness over the previous AC joint. no tenderness to palpation over the posterior shoulder, positive tenderness to palpation over the anterior lateral corner of the shoulder and greater tuberosity. nonpainful at the bicipital groove and coracoid. Active range of motion is 160? of forward elevation, 50? external rotation, and internal rotation to the low lumbar spine. Passive range of motion is symmetrical, limited by pain, respectively. No laxity with anterior and posterior stress. positive Neer and Godwin impingement signs. 4+/5 strength with supraspinatus, 5/5 infraspinatus and subscapularis. Sensation is intact in the axillary, radial, median and ulnar nerve distribution The risk, benefits and alternatives of injection and no injection therapy were discussed. The patient consented for an injection. Time out was conducted. The injection site was prepped with a Chlorhexadine swab. The left Subacromial joint was injected with a 25 gauge needle with 1 cc Celestone (6 mg), and 5 cc Marcaine 0.5%. The injection site was then dressed with a bandaid. The patient tolerated the injection well. The patient was instructed to call the office if any adverse local effects occurred or any if any questions or concerns arise. Zeyad Stratton MD Imaging: IMPRESSION: 1. ?Mild glenohumeral DJD 2. ?Cervical spondylosis with foraminal stenoses Car Whacker: ELVIRA ? Transcribe Date/Time: Jan ?2017 ?4:38P Dictated by : JENNIFER SOLIS MD This examination was interpreted and the report reviewed and electronically signed by: JENNIFER SOLIS MD on Jan ?4:51PM ?EST Results-Findings * * *Final Report* * * DATE OF EXAM: Jan 16 2018 ?3:33PM ? WRX ? [id number] ?- ?XR SHOULDER 2V AP/TRUE AP LT ?/ PROCEDURE REASON: Pain in left shoulder ?? ? * * * * Physician Interpretation * * * * ?LEFT SHOULDER - 01/16/2018 3:33 PM TECHNIQUE: 2 views (AP, [place]) HISTORY - Clinical Information/Indication: Left shoulder/upper arm pain since Monday; no injury COMPARED WITH: 12/25/2008 DICOM import chest x-ray; 10/29/2014 cervical spine x-rays RESULT: The slightly widened appearance of the acromioclavicular joint space is grossly unchanged compared with the 2008 outside chest x-ray. ?The coracoclavicular and acromiohumeral joints appear intact. ?There is mild glenohumeral joint space narrowing with minimal marginal osteophytosis. ? No periarticular soft tissue calcification is seen. There is severe multilevel hypertrophic DJD of the cervical spine. ?The October 2014 bilateral cervical spine images demonstrate multilevel significant neural foraminal stenoses. Supporting Subjective Information Below: Past Surgical History: PAST SURGICAL HISTORY Procedure Laterality Date - COLONOSCOP W/ OR W/O [facility] SPEC 07/30/15 Colonoscopy (MAC) - COLONOSCOPY multiple - EGD - EGD W/O OR W/BRUSH/WASH 01/22/2018 EGD - PAST SURGICAL HISTORY OF Left 2010 Left shoulder arthroscopy - PAST SURGICAL HISTORY OF Partial hysterectomy - PAST SURGICAL HISTORY OF 03/2015 knee replacement left - REMOVE TONSILS/ADENOIDS,12+ Y/O 1985 T/A (over age 13 years) - ROTATOR CUFF REPAIR 2005 Right shoulder - TOTAL HIP REPLACEMENT 2010 Hip replacement, total sondra Medications: Current Outpatient Prescriptions: celecoxib (CELEBREX) 100 mg capsule Take 1 capsule by mouth once daily. DEXILANT 60 mg CpDM TAKE 1 CAPSULE DAILY olopatadine (PATANOL) 0.1 % ophthalmic solution Use 1 Drop in both eyes twice daily. VOLTAREN 1 % topical gel APPLY 2 GRAMS TO AFFECTED AREA FOUR TIMES A DAY Ipratropium [place] (ATROVENT) 0.03 % nasal spray USE 1 TO 2 SPRAYS NASALLY EVERY 12 HOURS DIRECTED lidocaine (LIDODERM) 5 % Apply 2 Patches as directed every 24 hours. Remove after 12 hours. Location: Lower back and knees. triamcinolone acetonide (KENALOG) 0.1 % cream Apply 1 application to affected area three times daily. As needed for rash. Apply sparingly to area for rash/itching. diphenoxylate-atropine (LOMOTIL) 2.5-0.025 mg per tablet Take 1 tablet by mouth twice daily as needed for Diarrhea. gabapentin (NEURONTIN) 400 mg capsule Take 1-2 capsules by mouth three times daily. meclizine (ANTIVERT) 25 mg tab Take 1 tablet by mouth every 6 hours as needed (dizziness). COMPOUNDED PRESCRIPTION methylcobalamin Cholecalciferol, Vitamin D3, 5,000 unit cap Take 1 capsule by mouth once daily. (took 2 daily since April appt) Methylsulfonylmethane (MSM) 1,000 mg tab Take 1 tablet by mouth once daily. Garlic tab Take 1 tablet by mouth. CINNAMON BARK (CINNAMON ORAL) Take by mouth. Qtjfomcucen-HZW-Xawzyvuzt-VitC cap Take by mouth. loratadine (CLARITIN) 10 mg tablet Take 10 mg by mouth once daily. BOSWELLIA RONDA EXTRACT (BOSWELLIA RONDA XT, BULK, LeisureLinkC) 800 mg once daily. multivitamin (DAILY MULTI-VITAMIN) tablet Take 1 tablet by mouth once daily. VITAMIN E, DL,TOCOPHERYL ACET, (VITAMIN E, DL, ACETATE,) 400 unit cap Take 400 Units by mouth once daily. magnesium oxide (MAG-OX) 400 mg tablet Take 1 tablet by mouth once daily. zoledronic acid (RECLAST) 5 mg/100 mL pgbk PREMIX piggyback Inject 100 mL intravenously one time only for 1 dose. fluticasone (FLONASE) 50 mcg/actuation nasal spray USE 1 SPRAY IN EACH NOSTRIL DAILY (Patient not taking: Reported on 11/16/2017) CPAP Current Facility-Administered Medications: [COMPLETED] betamethasone acetate-betamethasone sodium phosphate 6 mg, bupivacaine (PF) 25 mg INTRA-ARTICULAR ONCE Allergies: Oxycodone; Lyrica [Pregabalin]; Seasonal Allergies ROS: General (negative for fatigue, malaise, weight loss/gain) HEENT (negative for headache, earache, recent vision changes, sinus pain, sore throat) Respiratory (no recent shortness of breath, hemoptysis) CV (negative for chest tightness, palpitations) Musculoskeletal (see HPI) Psych (no depression, anxiety) This note was partially generated using Aubrey voice recognition system, and there may be some incorrect words, spellings, and punctuation that were not noted in checking the note before saving. Zeyad Stratton MD Referring Provider: MARIUSZ BHANDARI [[id number]] Allergies As of Date: 01/25/2018 Noted Allergy Reaction OXYCODONE 03/23/2015 8 - GI Upset LYRICA (PREGABALIN) 10/29/2014 8 - GI Upset SEASONAL ALLERGIES 11/16/2017 14 - Other: See Comments Comments: sneezing, runny nose, and headache Date Reviewed: 01/25/2018 Reviewed by: Zeyad Stratton - Fully Assessed Reason for Visit: New problem [Other] Cmt: left shoulder pain, xray 01-16-18, REF: Silvana Tee, last seen 11-16-17 series of Euflexxa right knee Primary Visit Diagnosis:Acute pain of left shoulder [M25.512] Other Visit Diagnosis:Impingement syndrome of left shoulder [M75.42] Order(s):[] betamethasone acetate-betamethasone sodium phosphate 6 mg, bupivacaine (PF) 25 mgDisp: Rfl: Prescriptions as of 01/25/2018 Sig: CELECOXIB 100 MG CAPSULE Take 1 capsule by mouth once * DEXILANT 60 MG CAPSULE, DELAY* TAKE 1 CAPSULE DAILY OLOPATADINE 0.1 % EYE DROPS Use 1 Drop in both eyes twice* VOLTAREN 1 % TOPICAL GEL APPLY 2 GRAMS TO AFFECTED ARE* IPRATROPIUM BROMIDE 0.03 % NA* USE 1 TO 2 SPRAYS NASALLY DAPHNIE* LIDOCAINE 5 % TOPICAL PATCH Apply 2 Patches as directed e* TRIAMCINOLONE ACETONIDE 0.1 %* Apply 1 application to affect* DIPHENOXYLATE-ATROPINE 2.5 MG* Take 1 tablet by mouth twice * GABAPENTIN 400 MG CAPSULE Take 1-2 capsules by mouth th* MECLIZINE 25 MG TABLET Take 1 tablet by mouth every * COMPOUNDED PRESCRIPTION methylcobalamin CHOLECALCIFEROL (VITAMIN D3) * Take 1 capsule by mouth once * METHYLSULFONYLMETHANE 1,000 M* Take 1 tablet by mouth once d* GARLIC TABLET Take 1 tablet by mouth. CINNAMON ORAL Take by mouth. PEELUSYEHZF-ZIG-ZYOBKCGKE-VIT* Take by mouth. LORATADINE 10 MG TABLET Take 10 mg by mouth once heather* BOSWELLIA RONDA XT (BULK) M* 800 mg once daily. MULTIVITAMIN TABLET Take 1 tablet by mouth once d* VITAMIN E (DL, ACETATE) 400 U* Take 400 Units by mouth once * MAGNESIUM OXIDE 400 MG (241.3* Take 1 tablet by mouth once d* ZOLEDRONIC ACID 5 MG/100 ML I* Inject 100 mL intravenously o* FLUTICASONE 50 MCG/ACTUATION * USE 1 SPRAY IN EACH NOSTRIL D* Patient not taking: Reported on 11/16/2017 CPAP Problem List As Of Date 01/25/2018 Noted Resolved Ovarian cyst, follicular [N83.00] INVALID FOR*11/10/2016 More... Plantar fasciitis, bilateral [M72.2] INVALID FOR* Osteoporosis [M81.0] Vitamin D deficiency [E55.9] Diffuse myofascial pain syndrome [M79.1] INVALID FOR* Chronic pain [G89.29] INVALID FOR* Generalized OA [M15.9] INVALID FOR* Arthritis of knee [M17.10] INVALID FOR*02/27/2017 Pain in joint, pelvic region and thigh [M25.559]INVALID FOR* DONITA on CPAP [G47.33, Z99.89] INVALID FOR*02/27/2017 GERD (gastroesophageal reflux disease) [K21.9] INVALID FOR* Arthropathy, lower leg [CQU9133] INVALID FOR*03/23/2015 Hypercholesteremia [E78.00] Rectal bleeding [K62.5] Status post total left knee replacement [Z96.65*INVALID FOR*02/27/2017 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 Patient did not experience a burn prior to discharge. Sangeetha Peter RN NURSING PROG Observed: 01/22/2018 Status: COMPLETED Source: [place] 12:12 PM [facility] REPOSITORY HNO ID: [id number] Author: Sangeetha DouglassRn) Brittani, RN Service: Nursing Author Type: Registered Nurse Type: Nursing Progress Note Filed: 01/22/2018 12:12 PM Note Text: Dr Herrera to visit, home via wheelchair in the care of her sister. NURSING PROG Observed: 01/22/2018 Status: COMPLETED Source: [place] 11:54 AM [facility] REPOSITORY HNO ID: [id number] Author: Sangeetha DouglassRn) Brittani, RN Service: Nursing Author Type: Registered Nurse Type: Nursing Progress Note Filed: 01/22/2018 11:55 AM Note Text: Dressing to go with the help of her sister, Dr Herrera to visit, no complaints, all safety maintained. NURSING PROG Observed: 01/22/2018 Status: COMPLETED Source: [place] 11:43 AM [facility] REPOSITORY HNO ID: [id number] Author: Sangeetha DouglassRn) REYNALDO Peter Service: Nursing Author Type: Registered Nurse Type: Nursing Progress Note Filed: 01/22/2018 11:44 AM Note Text: Sister helping patient with snack. PT ED Observed: 01/22/2018 Status: COMPLETED Source: [place] 11:40 AM [facility] REPOSITORY HNO ID: [id number] Author: Sangeetha DouglassRn) REYNALDO Peter Service: Nursing Author Type: Registered Nurse Type: Patient Education Filed: 01/22/2018 11:40 AM Note Text: POST OP LEARNING RESPONSE INSTRUCTION PROVIDED TO: Patient and family member METHOD OF INSTRUCTION: Individual instruction Written instruction - handouts Verbal instruction PATIENT / FAMILY RESPONSE: Information received as demonstrated by interest and questions FOLLOW-UP PLAN: Patient instructed to call with any further issues SUPPLEMENTAL MATERIAL: None REFERRAL (RECOMMENDATION): None Electronically Signed By: Sangeetha Peter RN In Department: AMBULATORY SURGERY NURSING PROG Observed: 01/22/2018 Status: COMPLETED Source: [place] 11:36 AM [facility] REPOSITORY HNO ID: [id number] Author: Sangeetha DouglassRn) REYNALDO Peter Service: Nursing Author Type: Registered Nurse Type: Nursing Progress Note Filed: 01/22/2018 11:38 AM Note Text: Sister to her side, tolerating snack, waiting to talk to Dr Herrera. NURSING PROG Observed: 01/22/2018 Status: COMPLETED Source: [place] 11:20 AM [facility] REPOSITORY HNO ID: [id number] Author: Sangeetha DouglassRn) REYNALDO Peter Service: Nursing Author Type: Registered Nurse Type: Nursing Progress Note Filed: 01/22/2018 11:24 AM Note Text: Pt into Endo recovery room in satisfactory condition. Resting on left side. Pt. sleepy but arousable. Abdomen soft, no complaints, all safety maintained. Will continue to monitor. NURSING PROG Observed: 01/22/2018 Status: COMPLETED Source: [place] 11:17 AM [facility] REPOSITORY HNO ID: [id number] Author: Onelia DouglassRnShahana Macias RN Service: Nursing Author Type: Registered Nurse Type: Nursing Progress Note Filed: 01/22/2018 11:18 AM Note Text: Patient did not experience a fall within the Intraoperative area. Patient did not experience a burn within the Intraoperative area. Onelia Macias RN BRIEF OP NOT Observed: 01/22/2018 Status: COMPLETED Source: [place] 11:14 AM [facility] HNO ID: [id number] Author: Jesse Herrera Service: Gastroenterology Author Type: Physician Type: Brief Op Note Filed: 01/22/2018 11:14 AM Note Text: Endoscopy completed. Procedure well tolerated. Patient leaving endoscopy room with entirely stable vital signs. Results will be carefully delineated in my final note which will follow shortly . Jesse Herrera M.D. NURSING PROG Observed: 01/22/2018 Status: COMPLETED Source: [place] 10:51 AM [facility] REPOSITORY HNO ID: [id number] Author: Jolynn Hess (Rn) REYNALDO Islas Service: Nursing Author Type: Registered Nurse Type: Nursing Progress Note Filed: 01/22/2018 10:53 AM Note Text: [facility] PRE-OP NURSING HAND OFF NOTE SBAR Hand off given to Jennifer Montes De Oca RN. Hand off was communicated verbally and at the patient's bedside and all questions were answered. FALLS/PIERCE Patient did not experience a fall within the Preoperative area. Patient did not experience a burn within the Preoperative area. Jolynn Islas RN HISTORY PHYSICAL Observed: 01/22/2018 Status: COMPLETED Source: [place] 10:21 AM [facility] REPOSITORY HNO ID: [id number] Author: Jesse Herrera Service: Gastroenterology Author Type: Physician Type: HANDP Filed: 01/22/2018 10:21 AM Note Text: UPDATED HISTORY AND PHYSICAL EXAMINATION SERVICE DATE: 01/22/2018 SERVICE TIME: 10:21 AM PHYSICAL EXAM MUST BE COMPLETED ON ADMISSION The History and Physical (completed in the past 30 days) has been reviewed and the patient has been examined. The contents accurately reflect the patient's condition with the following additions or revisions since the HANDP was completed. Examination indicates no changes. This HANDP can be found in the Electronic Medical Record dated 01/02/18. SIGNATURE: Jesse Herrera MD PATIENT NAME: Nella Carlson DATE: January 22, 2018 TIME: 10:21 AM PAGER: PT ED Observed: 01/22/2018 Status: COMPLETED Source: [place] 10:02 AM [facility] REPOSITORY HNO ID: [id number] Author: Lacy (Rn) REYNALDO Guillaume Service: (none) Author Type: Registered Nurse Type: Patient Education Filed: 01/22/2018 10:03 AM Note Text: Discharge Instructions were reviewed pre-operatively with the patient. All questions and concerns were addressed. Lacy Guillaume RN PRE OP LEARNING ASSESSMENT PROCEDURE/SURGERY: GI PROCEDURES: EGD READINESS TO LEARN COGNITIVE ABILITY: Alert and oriented MOTIVATION TO LEARN: Interested FAMILY SUPPORT: Unable to assess - Family not present PATIENT LEARNS BEST BY: Multiple Methods FACTORS AFFECTING LEARNING: None PHYSICAL LIMITATIONS AFFECTING LEARNING: None Electronically Signed By: Lacy Guillaume RN In Department: AMBULATORY SURGERY SURGICAL PATHOLOGY Observed: 01/22/2018 Status: F Source: [place] 12:00 AM [facility] REPOSITORY Specimen originated from [facility] Specimen #: [id number] Submitting Physician: JESSE HERRERA MD FINAL DIAGNOSIS Stomach, antrum, biopsy - Mild chronic inactive gastritis. - Negative for H. pylori organisms on immunostain. ALLIE/joss 01/24/2018 COMMENT Given the background of chronic gastritis a Helicobacter pylori immunostain was performed on block A1 and is negative for Helicobacter pylori organisms. Laboratory Developed Test (LDT) Disclaimer: Positive and negative controls stain appropriately. Performance characteristics of immunohistochemical, immunofluorescent and chromogenic in-situ hybridization tests have been determined by [facility]'s [facility] [place] ([facility]) in a manner consistent with CLIA requirements. One or more of these tests have not been cleared or approved by the FDA. [facility] is regulated under CLIA as qualified to perform high-complexity testing. These tests are used for clinical purposes. They should not be regarded as investigational or for research. Brennan Mcpherson M.D. (Electronic Signature) SPECIMEN SUBMITTED A: ANTRUM, BIOPSY H/H CLINICAL DATA R13.10 GROSS DESCRIPTION A. Received in formalin are three pieces of acevedo, soft tissue aggregating to 0.8 x 0.2 x 0.2 cm. Totally submitted in one cassette. Gross examination performed at [facility], [address] [place] [address] 01/24/2018 2:35:09 AM Date of Report: 01/25/2018 Date of Procedure: 01/22/2018 Date of Receipt: 01/23/2018 Submitted by: JESSE HERRERA MD Location: [facility] Diagnostic interpretation performed at [place] [address]. XR SHOULDER 2V Observed: 01/16/2018 Status: F Source: [place] AP/TRUE AP LT 3:33 PM [facility] REPOSITORY * * *Final Report* * * DATE OF EXAM: Jan 16 2018 3:33PM WRX 5254 - XR SHOULDER 2V AP/TRUE AP LT / PROCEDURE REASON: Pain in left shoulder * * * * Physician Interpretation * * * * LEFT SHOULDER - 01/16/2018 3:33 PM TECHNIQUE: 2 views (AP, [place]) HISTORY - Clinical Information/Indication: Left shoulder/upper arm pain since Monday; no injury COMPARED WITH: 12/25/2008 DICOM import chest x-ray; 10/29/2014 cervical spine x-rays RESULT: The slightly widened appearance of the acromioclavicular joint space is grossly unchanged compared with the 2008 outside chest x-ray. The coracoclavicular and acromiohumeral joints appear intact. There is mild glenohumeral joint space narrowing with minimal marginal osteophytosis. No periarticular soft tissue calcification is seen. There is severe multilevel hypertrophic DJD of the cervical spine. The October 2014 bilateral cervical spine images demonstrate multilevel significant neural foraminal stenoses. IMPRESSION: 1. Mild glenohumeral DJD 2. Cervical spondylosis with foraminal stenoses Car Whacker: ELVIRA Transcribe Date/Time: Jan 17 2018 4:38P Dictated by : JENNIFER SOLIS MD This examination was interpreted and the report reviewed and electronically signed by: JENNIFER SOLIS MD on Jan 17 2018 4:51PM EST [id number] PROGRESS Observed: 01/16/2018 Status: COMPLETED Source: [place] 3:24 PM [facility] REPOSITORY HNO ID: [id number] Author: Ruthie Lyn (Rt) Josue Treviño Service: (none) Author Type: Care Management Specialist Type: Progress Notes Filed: 01/16/2018 3:31 PM Note Text: Radiology Service Progress Note PATIENT NAME: Nella Carlson DATE OF SERVICE: January 16, 2018 TIME: 3:24 PM PATIENT IDENTITY VERIFICATION COMPLETED USING TWO (2) METHODS: Patient confirmed name verbally and Date of . PATIENT GENDER DATA: Female. status: : No status: NO. PATIENT RELEVANT IMPLANT DATA REVIEWED: Not Applicable RADIOLOGY DEPARTMENT: General X-ray: Exam(s) Completed: Upper Extremity X-Ray(s): Shoulder, AP / TRUE AP left : PERIPHERAL IV DATA: Not applicable SIGNED BY: RT Sharon January 16, 2018 3:24 PM PROGRESS Observed: 01/16/2018 Status: COMPLETED Source: [place] 2:50 PM [facility] [place] REPOSITORY HNO ID: [id number] Author: Cher Tee (Cns) Service: (none) Author Type: Nurse Specialist Type: Progress Notes Filed: 01/18/2018 8:23 AM Note Text: OUTPATIENT VISIT DATE January 16, 2018 OUTPATIENT VISIT TYPE ESTABLISHED PRIMARY CARE PHYSICIAN: Mariusz Bhandari MD CHIEF COMPLAINT: Patient presents with: Arm Pain: left shoulder to elbow History of Present Illness: Nella Carlson is a 72 year old female who was last seen 10/2017 by Mariusz Bhandari MD. She has been seen in the past for ACTIVE PROBLEM LIST Plantar Fasciitis, Bilateral Osteoporosis Vitamin D Deficiency Diffuse Myofascial Pain Syndrome Chronic Pain Generalized Oa Pain in Joint, Pelvic Region and Thigh Gerd (Gastroesophageal Reflux Disease) Hypercholesteremia Rectal Bleeding Status Post Total Replacement of Left Hip Pain in Right Hip Primary Osteoarthritis of Right Knee Donita (Obstructive Sleep Apnea) Arthritis Class 1 Obesity Due to Excess Calories Without Serious Comorbidity With Body Mass Index (Bmi) of 32.0 to 32.9 in Adult Presents today with report of acute pain in left shoulder. She reports last Monday was carrying groceries. She reported immediately after did not feel pain but soon the left shoulder pain, anterior posterior aspects of left shoulder, with radiation down the elbow. Pain is increased with raising the arm upward outward forward and behind back. Feels best with her arm close to her body or down at her side. Previous history of rotator cuff surgery right shoulder. No recent hospital or ED visits. No new medical problems or medications. Able to obtain medications. No problems with taking medications or note side effects. PAST MEDICAL HISTORY Diagnosis Date - Arthritis - DDD (degenerative disc disease) - Hemorrhoid - Hypercholesteremia - DONITA (obstructive sleep apnea) - Osteoporosis - Ovarian cyst, follicular 09/05/2014 followed by OCC MED PHYSICIAN with every 6 month pelvic US; last one 03/2014 - Plantar fasciitis, bilateral 09/05/2014 - Rectal bleeding - Vitamin D deficiency PAST SURGICAL HISTORY Procedure Laterality Date - COLONOSCOP W/ OR W/O [facility] SPEC 07/30/15 Colonoscopy (MAC) - COLONOSCOPY multiple - EGD - PAST SURGICAL HISTORY OF Left shoulder arthroscopy - PAST SURGICAL HISTORY OF Partial hysterectomy - PAST SURGICAL HISTORY OF 03/2015 knee replacement left - REMOVE TONSILS/ADENOIDS,12+ Y/O 1984 T/A (over age 13 years) - ROTATOR CUFF REPAIR 2005 Right shoulder - TOTAL HIP REPLACEMENT 2010 Hip replacement, total sondra FAMILY HISTORY Problem Relation Age of Onset - Heart Mother PA - Diabetes Mother - Heart Father PA - Kidney Disease Father Social History Substance Use Topics - Smoking status: Former Smoker Packs/day: 0.50 Years: 15.00 Quit date: 06/19/1981 - Smokeless tobacco: Never Used - Alcohol use No ALLERGIES: ALLERGIES Allergen Reactions - Oxycodone GI Upset - Lyrica [Pregabalin] GI Upset - Seasonal Allergies Other: See Comments sneezing, runny nose, and headache MEDICATIONS celecoxib (CELEBREX) 100 mg capsule Take 1 capsule by mouth once daily. DEXILANT 60 mg CpDM TAKE 1 CAPSULE DAILY olopatadine (PATANOL) 0.1 % ophthalmic solution Use 1 Drop in both eyes twice daily. VOLTAREN 1 % topical gel APPLY 2 GRAMS TO AFFECTED AREA FOUR TIMES A DAY Ipratropium [place] (ATROVENT) 0.03 % nasal spray USE 1 TO 2 SPRAYS NASALLY EVERY 12 HOURS DIRECTED lidocaine (LIDODERM) 5 % Apply 2 Patches as directed every 24 hours. Remove after 12 hours. Location: Lower back and knees. triamcinolone acetonide (KENALOG) 0.1 % cream Apply 1 application to affected area three times daily. As needed for rash. Apply sparingly to area for rash/itching. diphenoxylate-atropine (LOMOTIL) 2.5-0.025 mg per tablet Take 1 tablet by mouth twice daily as needed for Diarrhea. gabapentin (NEURONTIN) 400 mg capsule Take 1-2 capsules by mouth three times daily. meclizine (ANTIVERT) 25 mg tab Take 1 tablet by mouth every 6 hours as needed (dizziness). COMPOUNDED PRESCRIPTION methylcobalamin Cholecalciferol, Vitamin D3, 5,000 unit cap Take 1 capsule by mouth once daily. (took 2 daily since April appt) Methylsulfonylmethane (MSM) 1,000 mg tab Take 1 tablet by mouth once daily. Garlic tab Take 1 tablet by mouth. CINNAMON BARK (CINNAMON ORAL) Take by mouth. Rnwketfzbli-GYB-Qyjgvcuid-VitC cap Take by mouth. loratadine (CLARITIN) 10 mg tablet Take 10 mg by mouth once daily. BOSWELLIA RONDA EXTRACT (BOSWELLIA RONDA XT, BULK, LeisureLink) 800 mg once daily. multivitamin (DAILY MULTI-VITAMIN) tablet Take 1 tablet by mouth once daily. VITAMIN E, DL,TOCOPHERYL ACET, (VITAMIN E, DL, ACETATE,) 400 unit cap Take 400 Units by mouth once daily. magnesium oxide (MAG-OX) 400 mg tablet Take 1 tablet by mouth once daily. zoledronic acid (RECLAST) 5 mg/100 mL pgbk PREMIX piggyback Inject 100 mL intravenously one time only for 1 dose. fluticasone (FLONASE) 50 mcg/actuation nasal spray USE 1 SPRAY IN EACH NOSTRIL DAILY CPAP REVIEW OF SYSTEMS: GENERAL: Negative for: Weight loss or gain, Fever or Chills, Weakness and Sleep difficulties. Physical Examination: BP 112/82 Pulse 80 Resp 16 Wt 158 lb (71.7kg) BP w/Orthostatic Vitals Date and Time Orthostatic BP Orthostatic Pulse BP Pulse BP Position BP Site BP Cuff Size 01/16/18 1418 -- -- 112/82 80 Sitting Right Arm Regular Adult Peak Flow Date and Time PF Resp 01/16/18 1418 -- 16 General appearance: Well appearing, alert, in no acute distress, well-hydrated, well nourished. Skin: Skin color, texture, turgor normal, no suspicious rashes or lesions Abdomen: Normal abdominal exam, Abdomen soft, non-tender. Bowel sounds normal. No masses, organomegaly Extremities: Decreased ROM left shoulder with arm raise,reaching behind back, TTP anterior and posterior aspect of left shoulder, decreased shopper insights manager left hand, decreased strength left arm, no edema, skin discoloration, clubbing or cyanosis. Good capillary refill. Musculoskeletal: Spine range of motion normal. Muscular strength intact, No joint swelling, deformity, or tenderness Peripheral pulses: left radial 2/4 Neuro: Gait normal. Sensation grossly intact. Reviewed chart, outside records, tests I personally interviewed, confirmed and edited the above information if obtained by others. TESTING: Glucose (mg/dL) Date Value 09/12/2017 117 Potassium (mmol/L) Date Value 09/12/2017 4.0 Sodium (mmol/L) Date Value 09/12/2017 140 Chloride (mmol/L) Date Value 09/12/2017 103 CO2 (mmol/L) Date Value 09/12/2017 22 Creatinine (mg/dL) Date Value 09/12/2017 0.95 BUN (mg/dL) Date Value 09/12/2017 21 Anion Gap (mmol/L) Date Value 09/12/2017 15 Calcium (mg/dL) Date Value 09/12/2017 9.5 Glucose (mg/dL) Date Value 09/12/2017 117 Potassium (mmol/L) Date Value 09/12/2017 4.0 Sodium (mmol/L) Date Value 09/12/2017 140 Chloride (mmol/L) Date Value 09/12/2017 103 CO2 (mmol/L) Date Value 09/12/2017 22 Creatinine (mg/dL) Date Value 09/12/2017 0.95 BUN (mg/dL) Date Value 09/12/2017 21 Anion Gap (mmol/L) Date Value 09/12/2017 15 Calcium (mg/dL) Date Value 09/12/2017 9.5 Protein, Total (g/dL) Date Value 09/12/2017 7.2 Albumin (g/dL) Date Value 09/12/2017 4.2 Bilirubin, Total (mg/dL) Date Value 09/12/2017 0.4 Alkaline Phosphatase (U/L) Date Value 09/12/2017 58 AST (U/L) Date Value 09/12/2017 25 ALT (U/L) Date Value 09/12/2017 20 Hemoglobin (g/dL) Date Value 09/12/2017 14.8 Hematocrit (%) Date Value 09/12/2017 46.6 WBC (k/uL) Date Value 09/12/2017 8.69 Cholesterol, Total (mg/dL) Date Value 10/30/2017 240 HDL Cholesterol (mg/dL) Date Value 10/30/2017 99 LDL Cholesterol (mg/dL) Date Value 10/30/2017 105 Triglyceride (mg/dL) Date Value 10/30/2017 179 No results found for: HBA1C Ejection Fraction: No results found IMPRESSION: Ms. Carlson is a 72 year old woman presents with acute left shoulder pain. After my examination and review of data, I make the following recommendations. PLAN AND RECOMMENDATIONS: 1. Acute pain of left shoulder - ICD9: 719.41, ICD10: M25.512 - XR SHOULDER LIMITED 2V AP/TRUE AP LT - CONSULT TO PHYSICAL THERAPY - CONSULT TO ORTHOPAEDICS X-ray of shoulder today Continue on with Celebrex Ice shoulder 15-20 minutes 3 or 4 times per day Keep pillow under your arm when seated and in bed to reduce pain Do gentle exercises for shoulder - provided with ortho info shoulder rehab exercises Make appointment with physical therapy and orthopedic doctor. Advised to go to ER if develops chest pain, shortness of breath, or severe worsening of symptoms. Discussed risks, benefits, alternatives, and potential side effects of medications. Ms. Carlson expressed understanding and agreed with the plan. Cher Tee APRN.CNS CNOV Observed: 01/16/2018 Status: COMPLETED Source: [place] 2:20 PM [facility] REPOSITORY Office Visit (INTMWS) NELLA CARLSON ([id number]) 1945 F Date Time Provider Department 01/16/18 2:20 PM CHER TEE (JANES) INTMWS During your visit today, we recorded the following information about you: Pulse Respiration Blood pressure Weight 80/minute 16/minute 112/82 71.7 kg Cher Tee APRN.CNS 01/16/2018 2:44 PM Signed X-ray of shoulder today Continue on with Celebrex Ice shoulder 15-20 minutes 3 or 4 times per day Keep pillow under your arm when seated and in bed to reduce pain Do gentle exercises for shoulder Make appointment with physical therapy and orthopedic doctor. Cher Tee APRN.CNS 01/18/2018 8:23 AM Addendum OUTPATIENT VISIT DATE January 16, 2018 OUTPATIENT VISIT TYPE ESTABLISHED PRIMARY CARE PHYSICIAN: Mariusz Bhandari MD CHIEF COMPLAINT: Patient presents with: Arm Pain: left shoulder to elbow History of Present Illness: Nella Carlson is a 72 year old female who was last seen 10/2017 by Mariusz Bhandari MD. She has been seen in the past for ACTIVE PROBLEM LIST Plantar Fasciitis, Bilateral Osteoporosis Vitamin D Deficiency Diffuse Myofascial Pain Syndrome Chronic Pain Generalized Oa Pain in Joint, Pelvic Region and Thigh Gerd (Gastroesophageal Reflux Disease) Hypercholesteremia Rectal Bleeding Status Post Total Replacement of Left Hip Pain in Right Hip Primary Osteoarthritis of Right Knee Donita (Obstructive Sleep Apnea) Arthritis Class 1 Obesity Due to Excess Calories Without Serious Comorbidity With Body Mass Index (Bmi) of 32.0 to 32.9 in Adult Presents today with report of acute pain in left shoulder. She reports last Monday was carrying groceries. She reported immediately after did not feel pain but soon the left shoulder pain, anterior posterior aspects of left shoulder, with radiation down the elbow. Pain is increased with raising the arm upward outward forward and behind back. Feels best with her arm close to her body or down at her side. Previous history of rotator cuff surgery right shoulder. No recent hospital or ED visits. No new medical problems or medications. Able to obtain medications. No problems with taking medications or note side effects. PAST MEDICAL HISTORY Diagnosis Date - Arthritis - DDD (degenerative disc disease) - Hemorrhoid - Hypercholesteremia - DONITA (obstructive sleep apnea) - Osteoporosis - Ovarian cyst, follicular 09/05/2014 followed by OCC MED PHYSICIAN with every 6 month pelvic US; last one 03/2014 - Plantar fasciitis, bilateral 09/05/2014 - Rectal bleeding - Vitamin D deficiency PAST SURGICAL HISTORY Procedure Laterality Date - COLONOSCOP W/ OR W/O [facility] SPEC 07/30/15 Colonoscopy (MAC) - COLONOSCOPY multiple - EGD - PAST SURGICAL HISTORY OF Left shoulder arthroscopy - PAST SURGICAL HISTORY OF Partial hysterectomy - PAST SURGICAL HISTORY OF 03/2015 knee replacement left - REMOVE TONSILS/ADENOIDS,12+ Y/O 1984 T/A (over age 13 years) - ROTATOR CUFF REPAIR 2005 Right shoulder - TOTAL HIP REPLACEMENT 2010 Hip replacement, total sondra FAMILY HISTORY Problem Relation Age of Onset - Heart Mother PA - Diabetes Mother - Heart Father PA - Kidney Disease Father Social History Substance Use Topics - Smoking status: Former Smoker Packs/day: 0.50 Years: 15.00 Quit date: 06/19/1981 - Smokeless tobacco: Never Used - Alcohol use No ALLERGIES: ALLERGIES Allergen Reactions - Oxycodone GI Upset - Lyrica [Pregabalin] GI Upset - Seasonal Allergies Other: See Comments sneezing, runny nose, and headache MEDICATIONS celecoxib (CELEBREX) 100 mg capsule Take 1 capsule by mouth once daily. DEXILANT 60 mg CpDM TAKE 1 CAPSULE DAILY olopatadine (PATANOL) 0.1 % ophthalmic solution Use 1 Drop in both eyes twice daily. VOLTAREN 1 % topical gel APPLY 2 GRAMS TO AFFECTED AREA FOUR TIMES A DAY Ipratropium [place] (ATROVENT) 0.03 % nasal spray USE 1 TO 2 SPRAYS NASALLY EVERY 12 HOURS DIRECTED lidocaine (LIDODERM) 5 % Apply 2 Patches as directed every 24 hours. Remove after 12 hours. Location: Lower back and knees. triamcinolone acetonide (KENALOG) 0.1 % cream Apply 1 application to affected area three times daily. As needed for rash. Apply sparingly to area for rash/itching. diphenoxylate-atropine (LOMOTIL) 2.5-0.025 mg per tablet Take 1 tablet by mouth twice daily as needed for Diarrhea. gabapentin (NEURONTIN) 400 mg capsule Take 1-2 capsules by mouth three times daily. meclizine (ANTIVERT) 25 mg tab Take 1 tablet by mouth every 6 hours as needed (dizziness). COMPOUNDED PRESCRIPTION methylcobalamin Cholecalciferol, Vitamin D3, 5,000 unit cap Take 1 capsule by mouth once daily. (took 2 daily since April appt) Methylsulfonylmethane (MSM) 1,000 mg tab Take 1 tablet by mouth once daily. Garlic tab Take 1 tablet by mouth. CINNAMON BARK (CINNAMON ORAL) Take by mouth. Zfwjufkcklz-VXT-Fyauggyln-VitC cap Take by mouth. loratadine (CLARITIN) 10 mg tablet Take 10 mg by mouth once daily. BOSWELLIA RONDA EXTRACT (BOSWELLIA RONDA XT, BULK, LeisureLink) 800 mg once daily. multivitamin (DAILY MULTI-VITAMIN) tablet Take 1 tablet by mouth once daily. VITAMIN E, DL,TOCOPHERYL ACET, (VITAMIN E, DL, ACETATE,) 400 unit cap Take 400 Units by mouth once daily. magnesium oxide (MAG-OX) 400 mg tablet Take 1 tablet by mouth once daily. zoledronic acid (RECLAST) 5 mg/100 mL pgbk PREMIX piggyback Inject 100 mL intravenously one time only for 1 dose. fluticasone (FLONASE) 50 mcg/actuation nasal spray USE 1 SPRAY IN EACH NOSTRIL DAILY CPAP REVIEW OF SYSTEMS: GENERAL: Negative for: Weight loss or gain, Fever or Chills, Weakness and Sleep difficulties. Physical Examination: BP 112/82 Pulse 80 Resp 16 Wt 158 lb (71.7kg) BP w/Orthostatic Vitals Date and Time Orthostatic BP Orthostatic Pulse BP Pulse BP Position BP Site BP Cuff Size 01/16/181417 -- -- 112/82 80 Sitting Right Arm Regular Adult Peak Flow Date and Time PF Resp 01/16/18 1418 -- 16 General appearance: Well appearing, alert, in no acute distress, well-hydrated, well nourished. Skin: Skin color, texture, turgor normal, no suspicious rashes or lesions Abdomen: Normal abdominal exam, Abdomen soft, non-tender. Bowel sounds normal. No masses, organomegaly Extremities: Decreased ROM left shoulder with arm raise,reaching behind back, TTP anterior and posterior aspect of left shoulder, decreased shopper insights manager left hand, decreased strength left arm, no edema, skin discoloration, clubbing or cyanosis. Good capillary refill. Musculoskeletal: Spine range of motion normal. Muscular strength intact, No joint swelling, deformity, or tenderness Peripheral pulses: left radial 2/4 Neuro: Gait normal. Sensation grossly intact. Reviewed chart, outside records, tests I personally interviewed, confirmed and edited the above information if obtained by others. TESTING: Glucose (mg/dL) Date Value 09/12/2017 117 Potassium (mmol/L) Date Value 09/12/2017 4.0 Sodium (mmol/L) Date Value 09/12/2017 140 Chloride (mmol/L) Date Value 09/12/2017 103 CO2 (mmol/L) Date Value 09/12/2017 22 Creatinine (mg/dL) Date Value 09/12/2017 0.95 BUN (mg/dL) Date Value 09/12/2017 21 Anion Gap (mmol/L) Date Value 09/12/2017 15 Calcium (mg/dL) Date Value 09/12/2017 9.5 Glucose (mg/dL) Date Value 09/12/2017 117 Potassium (mmol/L) Date Value 09/12/2017 4.0 Sodium (mmol/L) Date Value 09/12/2017 140 Chloride (mmol/L) Date Value 09/12/2017 103 CO2 (mmol/L) Date Value 09/12/2017 22 Creatinine (mg/dL) Date Value 09/12/2017 0.95 BUN (mg/dL) Date Value 09/12/2017 21 Anion Gap (mmol/L) Date Value 09/12/2017 15 Calcium (mg/dL) Date Value 09/12/2017 9.5 Protein, Total (g/dL) Date Value 09/12/2017 7.2 Albumin (g/dL) Date Value 09/12/2017 4.2 Bilirubin, Total (mg/dL) Date Value 09/12/2017 0.4 Alkaline Phosphatase (U/L) Date Value 09/12/2017 58 AST (U/L) Date Value 09/12/2017 25 ALT (U/L) Date Value 09/12/2017 20 Hemoglobin (g/dL) Date Value 09/12/2017 14.8 Hematocrit (%) Date Value 09/12/2017 46.6 WBC (k/uL) Date Value 09/12/2017 8.69 Cholesterol, Total (mg/dL) Date Value 10/30/2017 240 HDL Cholesterol (mg/dL) Date Value 10/30/2017 99 LDL Cholesterol (mg/dL) Date Value 10/30/2017 105 Triglyceride (mg/dL) Date Value 10/30/2017 179 No results found for: HBA1C Ejection Fraction: No results found IMPRESSION: Ms. Carlson is a 72 year old woman presents with acute left shoulder pain. After my examination and review of data, I make the following recommendations. PLAN AND RECOMMENDATIONS: 1. Acute pain of left shoulder - ICD9: 719.41, ICD10: M25.512 - XR SHOULDER LIMITED 2V AP/TRUE AP LT - CONSULT TO PHYSICAL THERAPY - CONSULT TO ORTHOPAEDICS X-ray of shoulder today Continue on with Hand Talk Ice shoulder 15-20 minutes 3 or 4 times per day Keep pillow under your arm when seated and in bed to reduce pain Do gentle exercises for shoulder - provided with ortho info shoulder rehab exercises Make appointment with physical therapy and orthopedic doctor. Advised to go to ER if develops chest pain, shortness of breath, or severe worsening of symptoms. Discussed risks, benefits, alternatives, and potential side effects of medications. Ms. Carlson expressed understanding and agreed with the plan. Cher Tee APRN.DIRECTOR FACILITIES MAINTENANCE Referring Provider: SELF [[id number]] Allergies As of Date: 01/16/2018 Noted Allergy Reaction OXYCODONE 03/23/2015 8 - GI Upset LYRICA (PREGABALIN) 10/29/2014 8 - GI Upset SEASONAL ALLERGIES 11/16/2017 14 - Other: See Comments Comments: sneezing, runny nose, and headache Date Reviewed: 01/16/2018 Reviewed by: Keara Victor LPN - Fully Assessed Reason for Visit: Arm Pain [137] Cmt: left shoulder to elbow Primary Visit Diagnosis:Acute pain of left shoulder [M25.512] Order(s):XR SHOULDER LIMITED 2V AP/TRUE AP LT [5930221] Order #: [id number] FUTURE CONSULT TO PHYSICAL THERAPY [9036] Order #: [id number]: 1 CONSULT TO ORTHOPAEDICS [3436] Order #: [id number]: 1 Prescriptions as of 01/16/2018 Sig: CELECOXIB 100 MG CAPSULE Take 1 capsule by mouth once * DEXILANT 60 MG CAPSULE, DELAY* TAKE 1 CAPSULE DAILY OLOPATADINE 0.1 % EYE DROPS Use 1 Drop in both eyes twice* VOLTAREN 1 % TOPICAL GEL APPLY 2 GRAMS TO AFFECTED ARE* IPRATROPIUM BROMIDE 0.03 % NA* USE 1 TO 2 SPRAYS NASALLY DAPHNIE* LIDOCAINE 5 % TOPICAL PATCH Apply 2 Patches as directed e* TRIAMCINOLONE ACETONIDE 0.1 %* Apply 1 application to affect* DIPHENOXYLATE-ATROPINE 2.5 MG* Take 1 tablet by mouth twice * GABAPENTIN 400 MG CAPSULE Take 1-2 capsules by mouth th* MECLIZINE 25 MG TABLET Take 1 tablet by mouth every * COMPOUNDED PRESCRIPTION methylcobalamin CHOLECALCIFEROL (VITAMIN D3) * Take 1 capsule by mouth once * METHYLSULFONYLMETHANE 1,000 M* Take 1 tablet by mouth once d* GARLIC TABLET Take 1 tablet by mouth. CINNAMON ORAL Take by mouth. OBFYWUTFVRH-UQL-GJUCJAQZY-VIT* Take by mouth. LORATADINE 10 MG TABLET Take 10 mg by mouth once heather* BOSWELLIA RONDA XT (BULK) M* 800 mg once daily. MULTIVITAMIN TABLET Take 1 tablet by mouth once d* VITAMIN E (DL, ACETATE) 400 U* Take 400 Units by mouth once * MAGNESIUM OXIDE 400 MG TABLET Take 1 tablet by mouth once d* ZOLEDRONIC ACID 5 MG/100 ML I* Inject 100 mL intravenously o* FLUTICASONE 50 MCG/ACTUATION * USE 1 SPRAY IN EACH NOSTRIL D* Patient not taking: Reported on 11/16/2017 CPAP Problem List As Of Date 01/16/2018 Noted Resolved Ovarian cyst, follicular [N83.00] INVALID FOR*11/10/2016 More... Plantar fasciitis, bilateral [M72.2] INVALID FOR* Osteoporosis [M81.0] Vitamin D deficiency [E55.9] Diffuse myofascial pain syndrome [M79.1] INVALID FOR* Chronic pain [G89.29] INVALID FOR* Generalized OA [M15.9] INVALID FOR* Arthritis of knee [M17.10] INVALID FOR*02/27/2017 Pain in joint, pelvic region and thigh [M25.559]INVALID FOR* DONITA on CPAP [G47.33, Z99.89] INVALID FOR*02/27/2017 GERD (gastroesophageal reflux disease) [K21.9] INVALID FOR* Arthropathy, lower leg [YTK6849] INVALID FOR*03/23/2015 Hypercholesteremia [E78.00] Rectal bleeding [K62.5] Status post total left knee replacement [Z96.65*INVALID FOR*02/27/2017 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 Class 1 obesity due to excess calories without *INVALID FOR* Other instructions from your clinician: X-ray of shoulder today Continue on with Celebrex Ice shoulder 15-20 minutes 3 or 4 times per day Keep pillow under your arm when seated and in bed to reduce pain Do gentle exercises for shoulder Make appointment with physical therapy and orthopedic doctor. Encounter Status:Closed by CHER COONEY on 01/16/18 HOSP Observed: 01/03/2018 Status: COMPLETED Source: [place] 12:00 AM [facility] REPOSITORY Patient:Nella Carlson MRN: <[id number]> Height:4' 11(1.499 m) Weight:158 lb (71.668 kg) Outpatient Medications as of 01/22/18: celecoxib (CELEBREX) 100 mg capsule DEXILANT 60 mg CpDM zoledronic acid (RECLAST) 5 mg/100 mL pgbk PREMIX piggyback olopatadine (PATANOL) 0.1 % ophthalmic solution VOLTAREN 1 % topical gel Ipratropium [place] (ATROVENT) 0.03 % nasal spray lidocaine (LIDODERM) 5 % triamcinolone acetonide (KENALOG) 0.1 % cream diphenoxylate-atropine (LOMOTIL) 2.5-0.025 mg per tablet gabapentin (NEURONTIN) 400 mg capsule meclizine (ANTIVERT) 25 mg tab fluticasone (FLONASE) 50 mcg/actuation nasal spray COMPOUNDED PRESCRIPTION Cholecalciferol, Vitamin D3, 5,000 unit cap Methylsulfonylmethane (MSM) 1,000 mg tab Garlic tab CINNAMON BARK (CINNAMON ORAL) Xyjmeyylmxr-XUK-Wybbhlejt-VitC cap loratadine (CLARITIN) 10 mg tablet CPAP BOSWELLIA RONDA EXTRACT (BOSWELLIA RONDA XT, BULK, MISC) multivitamin (DAILY MULTI-VITAMIN) tablet VITAMIN E, DL,TOCOPHERYL ACET, (VITAMIN E, DL, ACETATE,) 400 unit cap magnesium oxide (MAG-OX) 400 mg tablet Admission/Clinic Administered Medications as of 01/22/18: lactated ringers infusion Problem List: Plantar fasciitis, bilateral [M72.2] Osteoporosis [M81.0] Vitamin D deficiency [E55.9] Diffuse myofascial pain syndrome [M79.1] Chronic pain [G89.29] Generalized OA [M15.9] Pain in joint, pelvic region and thigh [M25.559] GERD (gastroesophageal reflux disease) [K21.9] Hypercholesteremia [E78.00] Rectal bleeding [K62.5] Status post total replacement of left hip [Z96.642] Pain in right hip [M25.551] Primary osteoarthritis of right knee [M17.11] DONITA (obstructive sleep apnea) [G47.33] Arthritis [M19.90] Class 1 obesity due to excess calories without serious comorbidity with body mass index (BMI) of 32.0 to 32.9 in adult [E66.09, Z68.32] Allergies: Oxycodone Lyrica [Pregabalin] Seasonal Allergies Date Verified: 01/16/18 Lab Values No results within the last 30 days for the following basenames: K,HCT Progress Notes ([facility]): Cher Tee APRN.DIRECTOR FACILITIES MAINTENANCE 01/18/2018 8:28 AM Signed Please let her know that shoulder x-ray shows arthritic changes. Recommend she keep her appointment with Dr. Stratton. She is also noted to have arthritis in the cervical spine. I see that she seen Dr. Nugent in the past, please inquire whether she is still seeing him and if he wast treating her for neck pain / arthritis or if other doctor was. Keara Victor LPN 01/18/2018 10:06 AM Signed Patient notified of x-ray results and recommendations. Patient no longer see's Dr. Nugent, she see's Dr. Lopez every 3 months for back injections. See's him mainly for hip AND back nothing about neck. Progress Notes ([facility]): RT Sharon, Tech 01/16/2018 3:31 PM Signed Radiology Service Progress Note PATIENT NAME: Nella Carlson DATE OF SERVICE: January 16, 2018 TIME: 3:24 PM PATIENT IDENTITY VERIFICATION COMPLETED USING TWO (2) METHODS: Patient confirmed name verbally and Date of . PATIENT GENDER DATA: Female. status: : No status: NO. PATIENT RELEVANT IMPLANT DATA REVIEWED: Not Applicable RADIOLOGY DEPARTMENT: General X-ray: Exam(s) Completed: Upper Extremity X-Ray(s): Shoulder, AP / TRUE AP left : PERIPHERAL IV DATA: Not applicable SIGNED BY: RT hSaron January 16, 2018 3:24 PM HISTORY PHYSICAL Observed: 01/02/2018 Status: COMPLETED Source: [place] 2:18 PM [facility] [place] REPOSITORY HNO ID: [id number] Author: Felipa Martinez Service: (none) Author Type: Nurse Practitioner Type: HANDP Filed: 01/02/2018 5:34 PM Note Text: Nella Carlson a 72 year old female who is a consultation requested by Dr. Bhandari for an opinion regarding more GI testing. My final recommendations will be communicated back to the requesting physician by way of shared Medical record. The patient was seen by Dr. Peguero for upper endoscopy (epigastric pain and hmatochezia) and colonoscopy 07/30/15. The procedure report has been reviewed and findings as follows: Findings: ? ? ?A medium-sized hiatus hernia was present from 33-38cm with the LES at ? ? ?33cm. ? ? ?Localized severe inflammation characterized by erythema and granularity ? ? ?was found in the gastric antrum. Biopsies were taken with a cold forceps ? ? ?for histology. Biopsies were taken with a cold forceps for Helicobacter ? ? ?pylori testing. ? ? ?The examined duodenum was normal. FINAL DIAGNOSIS 1. Gastric antrum, biopsy (A) - Reactive gastropathy with mild chronic inflammation. -No histomorphologic evidence of Helicobacter pylori organisms. The patient was seen by Dr. Bhandari on 12/06/17, leading to this consultation. That note has been reviewed and part as follows: Trouble swallowing. Told has something in throat that has something in throat that would interfere with swallowing. Meat, noodles, bread worst. Has to eat slowly. Has to pause between bites. Has hiatal hernia--noted on EGD. Swallowing study 11/17/17: Impression: Normal tailored barium swallow study. No evidence of increased risk of aspiration. Presenting complaint: The patient presents today reporting about 4 months ago she started with dysphagia. She tells me that she gets through part of a meal and starts to have difficulty. She only eats dinner. An episode will happen occur 2-3 times a week. This mostly with pasta, meat and breads. She will stop eating and the food bolus will eventually go down. The patient takes Dexilant each morning. She tells me that she can awaken occasionally at night with regurgitation. Usually has dinner between 5-6:00. She has a snack before bed ~ about 9:00. She sleeps with the head of the bed flat. She tells me that she can even bring up what she had for dinner. She sometimes has to supplement with TUMS. The patient is having 3-4 bowel movements a day. She notes having irritable bowel. REVIEW OF SYSTEMS: GENERAL: No weight loss, malaise or fevers RESPIRATORY: Negative for cough, hemoptysis, wheezing, COPD, dyspnea or shortness of breath CARDIOVASCULAR: Negative for chest pain, leg swelling, hypertension, CHF or palpitations. Positive for elevated cholesterol. GI: The patient states that her appetite has been adequate. She does get hungry. There has been some nausea, no vomiting. She admits to dysphagia and denies odynophagia. There has been indigestion with heartburn. There has partially been regurgitation. Bowel habits have been regular. There has not been diarrhea. There has not been constipation. The patient denies rectal bleeding. There has not been melena. No abdominal pain. HEMATOLOGY/LYMPHOLOGY Negative for prolonged bleeding, bruising easily or swollen nodes ENDOCRINE: Negative for thyroid or diabetes. All other reviewed and negative other than HPI. PAST MEDICAL HISTORY Diagnosis Date - Arthritis - DDD (degenerative disc disease) - Hemorrhoid - Hypercholesteremia - DONITA (obstructive sleep apnea) - Osteoporosis - Ovarian cyst, follicular 09/05/2014 followed by [facility] MED PHYSICIAN with every 6 month pelvic US; last one 03/2014 - Plantar fasciitis, bilateral 09/05/2014 - Rectal bleeding - Vitamin D deficiency PAST SURGICAL HISTORY Procedure Laterality Date - COLONOSCOP W/ OR W/O [facility] SPEC 07/30/15 Colonoscopy (MAC) - COLONOSCOPY multiple - EGD - PAST SURGICAL HISTORY OF Left shoulder arthroscopy - PAST SURGICAL HISTORY OF Partial hysterectomy - PAST SURGICAL HISTORY OF 03/2015 knee replacement left - REMOVE TONSILS/ADENOIDS,12+ Y/O 1984 T/A (over age 13 years) - ROTATOR CUFF REPAIR 2005 Right shoulder - TOTAL HIP REPLACEMENT 2010 Hip replacement, total sondra FAMILY HISTORY Problem Relation Age of Onset - Heart Mother PA - Diabetes Mother - Heart Father PA - Kidney Disease Father Current Outpatient Prescriptions: DEXILANT 60 mg CpDM TAKE 1 CAPSULE DAILY Disp: 90 capsule Rfl: 3 zoledronic acid (RECLAST) 5 mg/100 mL pgbk PREMIX piggyback Inject 100 mL intravenously one time only for 1 dose. Disp: 100 mL Rfl: 0 olopatadine (PATANOL) 0.1 % ophthalmic solution Use 1 Drop in both eyes twice daily. Disp: 3 Bottle Rfl: 3 VOLTAREN 1 % topical gel APPLY 2 GRAMS TO AFFECTED AREA FOUR TIMES A DAY Disp: 200 g Rfl: 3 celecoxib (CELEBREX) 100 mg capsule TAKE 1 CAPSULE DAILY DIRECTED Disp: 90 capsule Rfl: 1 Ipratropium [place] (ATROVENT) 0.03 % nasal spray USE 1 TO 2 SPRAYS NASALLY EVERY 12 HOURS DIRECTED Disp: 90 mL Rfl: 0 lidocaine (LIDODERM) 5 % Apply 2 Patches as directed every 24 hours. Remove after 12 hours. Location: Lower back and knees. Disp: 180 Patch Rfl: 3 triamcinolone acetonide (KENALOG) 0.1 % cream Apply 1 application to affected area three times daily. As needed for rash. Apply sparingly to area for rash/itching. Disp: 45 g Rfl: 0 diphenoxylate-atropine (LOMOTIL) 2.5-0.025 mg per tablet Take 1 tablet by mouth twice daily as needed for Diarrhea. Disp: 90 tablet Rfl: 3 gabapentin (NEURONTIN) 400 mg capsule Take 1-2 capsules by mouth three times daily. Disp: 540 capsule Rfl: 3 meclizine (ANTIVERT) 25 mg tab Take 1 tablet by mouth every 6 hours as needed (dizziness). Disp: 15 tablet Rfl: 0 fluticasone (FLONASE) 50 mcg/actuation nasal spray USE 1 SPRAY IN EACH NOSTRIL DAILY (Patient not taking: Reported on 11/16/2017) Disp: 48 g Rfl: 3 COMPOUNDED PRESCRIPTION methylcobalamin Disp: Rfl: Cholecalciferol, Vitamin D3, 5,000 unit cap Take 1 capsule by mouth once daily. (took 2 daily since April appt) Disp: Rfl: Methylsulfonylmethane (MSM) 1,000 mg tab Take 1 tablet by mouth once daily. Disp: Rfl: 0 Garlic tab Take 1 tablet by mouth. Disp: Rfl: CINNAMON BARK (CINNAMON ORAL) Take by mouth. Disp: Rfl: Frnepzkbvsl-GEM-Snrjclzek-VitC cap Take by mouth. Disp: Rfl: loratadine (CLARITIN) 10 mg tablet Take 10 mg by mouth once daily. Disp: Rfl: CPAP Disp: Rfl: BOSWELLIA RONDA EXTRACT (BOSWELLIA RONDA XT, BULK, [facility]) 800 mg once daily. Disp: Rfl: multivitamin (DAILY MULTI-VITAMIN) tablet Take 1 tablet by mouth once daily. Disp: Rfl: 0 VITAMIN E, DL,TOCOPHERYL ACET, (VITAMIN E, DL, ACETATE,) 400 unit cap Take 400 Units by mouth once daily. Disp: Rfl: 0 magnesium oxide (MAG-OX) 400 mg tablet Take 1 tablet by mouth once daily. Disp: Rfl: 0 No current facility-administered medications for this visit. SOCIAL HISTORY: Patient is . Several grandchildren live with her. She quit smoking in 1981 and reports her alcohol use as never. PHYSICAL EXAMINATION: Blood pressure 116/77, pulse 89, height 149.9 cm (4' 11), weight 71.7 kg (158 lb). General Appearance: Well appearing, alert, in no acute distress, well-hydrated, well nourished. Skin: Skin color, texture, turgor normal, no suspicious rashes or lesions. Head: Normocephalic, no masses, lesions or abnormalities. Eyes: Anicteric sclera. P Oropharynx: Lips, mucosa, and tongue normal, oropharynx normal. Neck: Supple, no adenopathy; thyroid symmetric, normal size. Lungs: Lungs clear to auscultation. Heart: RRR without murmur,. Abdomen: Abdomen soft, non-tender. Bowel sounds normal. No masses, organomegaly. Extremities: No deformities, edema, skin discoloration, clubbing or cyanosis. Impression: dysphagia 2)GERD Plan: The patient is scheduled for upper endoscopy. Preparation for the procedure and the procedure itself have been explained in detail. The risks, benefits, anticipated outcomes and possible complications were mentioned. I also explained the procedure in understandable terms and the patient was given printed material concerning the planned procedure. The patient had the opportunity to ask questions concerning the planned procedure. The patient freely consents to the planned procedure. The patient is asked to call with any questions or concerns, or if there is a change in health status between now and the scheduled procedure. I have personally interviewed and examined this patient. I have read the information that the MA documented in this encounter. I spent 30 minutes in the visit, with more than 50% of the total aicf-wd-stpz time of the visit in counseling / coordination of care. Felipa Martinez RN APRN.BEV CNOV Observed: 01/02/2018 Status: COMPLETED Source: [place] 2:00 PM [facility] REPOSITORY [facility] NELLA CARLSON ([id number]) 1945 F Date Time Provider Department 01/02/18 2:00 PM FELIPA MARTINEZ ([facility]) [facility] During your visit today, we recorded the following information about you: Pulse Blood pressure Weight Height 89/minute 116/77 71.7 kg 1.499 m Felipa Martinez RN APRN.BEV 01/02/2018 5:34 PM Signed Nella Carlson a 72 year old female who is a consultation requested by Dr. Bhandari for an opinion regarding more GI testing. My final recommendations will be communicated back to the requesting physician by way of shared Medical record. The patient was seen by Dr. Peguero for upper endoscopy (epigastric pain and hmatochezia) and colonoscopy 07/30/15. The procedure report has been reviewed and findings as follows: Findings: ? ? ?A medium-sized hiatus hernia was present from 33-38cm with the LES at ? ? ?33cm. ? ? ?Localized severe inflammation characterized by erythema and granularity ? ? ?was found in the gastric antrum. Biopsies were taken with a cold forceps ? ? ?for histology. Biopsies were taken with a cold forceps for Helicobacter ? ? ?pylori testing. ? ? ?The examined duodenum was normal. FINAL DIAGNOSIS 1. Gastric antrum, biopsy (A) - Reactive gastropathy with mild chronic inflammation. -No histomorphologic evidence of Helicobacter pylori organisms. The patient was seen by Dr. Bhandari on 12/06/17, leading to this consultation. That note has been reviewed and part as follows: Trouble swallowing. Told has something in throat that has something in throat that would interfere with swallowing. Meat, noodles, bread worst. Has to eat slowly. Has to pause between bites. Has hiatal hernia--noted on EGD. Swallowing study 11/17/17: Impression: Normal tailored barium swallow study. No evidence of increased risk of aspiration. Presenting complaint: The patient presents today reporting about 4 months ago she started with dysphagia. She tells me that she gets through part of a meal and starts to have difficulty. She only eats dinner. An episode will happen occur 2-3 times a week. This mostly with pasta, meat and breads. She will stop eating and the food bolus will eventually go down. The patient takes Dexilant each morning. She tells me that she can awaken occasionally at night with regurgitation. Usually has dinner between 5-6:00. She has a snack before bed ~ about 9:00. She sleeps with the head of the bed flat. She tells me that she can even bring up what she had for dinner. She sometimes has to supplement with TUMS. The patient is having 3-4 bowel movements a day. She notes having irritable bowel. REVIEW OF SYSTEMS: GENERAL: No weight loss, malaise or fevers RESPIRATORY: Negative for cough, hemoptysis, wheezing, COPD, dyspnea or shortness of breath CARDIOVASCULAR: Negative for chest pain, leg swelling, hypertension, CHF or palpitations. Positive for elevated cholesterol. GI: The patient states that her appetite has been adequate. She does get hungry. There has been some nausea, no vomiting. She admits to dysphagia and denies odynophagia. There has been indigestion with heartburn. There has partially been regurgitation. Bowel habits have been regular. There has not been diarrhea. There has not been constipation. The patient denies rectal bleeding. There has not been melena. No abdominal pain. HEMATOLOGY/LYMPHOLOGY Negative for prolonged bleeding, bruising easily or swollen nodes ENDOCRINE: Negative for thyroid or diabetes. All other reviewed and negative other than HPI. PAST MEDICAL HISTORY Diagnosis Date - Arthritis - DDD (degenerative disc disease) - Hemorrhoid - Hypercholesteremia - DONITA (obstructive sleep apnea) - Osteoporosis - Ovarian cyst, follicular 09/05/2014 followed by [facility]CC MED PHYSICIAN with every 6 month pelvic US; last one 03/2014 - Plantar fasciitis, bilateral 09/05/2014 - Rectal bleeding - Vitamin D deficiency PAST SURGICAL HISTORY Procedure Laterality Date - COLONOSCOP W/ OR W/O [facility] SPEC 07/30/15 Colonoscopy (MAC) - COLONOSCOPY multiple - EGD - PAST SURGICAL HISTORY OF Left shoulder arthroscopy - PAST SURGICAL HISTORY OF Partial hysterectomy - PAST SURGICAL HISTORY OF 03/2015 knee replacement left - REMOVE TONSILS/ADENOIDS,12+ Y/O 1984 T/A (over age 13 years) - ROTATOR CUFF REPAIR 2005 Right shoulder - TOTAL HIP REPLACEMENT 2010 Hip replacement, total sondra FAMILY HISTORY Problem Relation Age of Onset - Heart Mother PA - Diabetes Mother - Heart Father PA - Kidney Disease Father Current Outpatient Prescriptions: DEXILANT 60 mg CpDM TAKE 1 CAPSULE DAILY Disp: 90 capsule Rfl: 3 zoledronic acid (RECLAST) 5 mg/100 mL pgbk PREMIX piggyback Inject 100 mL intravenously one time only for 1 dose. Disp: 100 mL Rfl: 0 olopatadine (PATANOL) 0.1 % ophthalmic solution Use 1 Drop in both eyes twice daily. Disp: 3 Bottle Rfl: 3 VOLTAREN 1 % topical gel APPLY 2 GRAMS TO AFFECTED AREA FOUR TIMES A DAY Disp: 200 g Rfl: 3 celecoxib (CELEBREX) 100 mg capsule TAKE 1 CAPSULE DAILY DIRECTED Disp: 90 capsule Rfl: 1 Ipratropium [place] (ATROVENT) 0.03 % nasal spray USE 1 TO 2 SPRAYS NASALLY EVERY 12 HOURS DIRECTED Disp: 90 mL Rfl: 0 lidocaine (LIDODERM) 5 % Apply 2 Patches as directed every 24 hours. Remove after 12 hours. Location: Lower back and knees. Disp: 180 Patch Rfl: 3 triamcinolone acetonide (KENALOG) 0.1 % cream Apply 1 application to affected area three times daily. As needed for rash. Apply sparingly to area for rash/itching. Disp: 45 g Rfl: 0 diphenoxylate-atropine (LOMOTIL) 2.5-0.025 mg per tablet Take 1 tablet by mouth twice daily as needed for Diarrhea. Disp: 90 tablet Rfl: 3 gabapentin (NEURONTIN) 400 mg capsule Take 1-2 capsules by mouth three times daily. Disp: 540 capsule Rfl: 3 meclizine (ANTIVERT) 25 mg tab Take 1 tablet by mouth every 6 hours as needed (dizziness). Disp: 15 tablet Rfl: 0 fluticasone (FLONASE) 50 mcg/actuation nasal spray USE 1 SPRAY IN EACH NOSTRIL DAILY (Patient not taking: Reported on 11/16/2017) Disp: 48 g Rfl: 3 COMPOUNDED PRESCRIPTION methylcobalamin Disp: Rfl: Cholecalciferol, Vitamin D3, 5,000 unit cap Take 1 capsule by mouth once daily. (took 2 daily since April appt) Disp: Rfl: Methylsulfonylmethane (MSM) 1,000 mg tab Take 1 tablet by mouth once daily. Disp: Rfl: 0 Garlic tab Take 1 tablet by mouth. Disp: Rfl: CINNAMON BARK (CINNAMON ORAL) Take by mouth. Disp: Rfl: Jeigruehpmg-IAR-Ablbnnnib-VitC cap Take by mouth. Disp: Rfl: loratadine (CLARITIN) 10 mg tablet Take 10 mg by mouth once daily. Disp: Rfl: CPAP Disp: Rfl: BOSWELLIA RONDA EXTRACT (BOSWELLIA RONDA XT, BULK, MISC) 800 mg once daily. Disp: Rfl: multivitamin (DAILY MULTI-VITAMIN) tablet Take 1 tablet by mouth once daily. Disp: Rfl: 0 VITAMIN E, DL,TOCOPHERYL ACET, (VITAMIN E, DL, ACETATE,) 400 unit cap Take 400 Units by mouth once daily. Disp: Rfl: 0 magnesium oxide (MAG-OX) 400 mg tablet Take 1 tablet by mouth once daily. Disp: Rfl: 0 No current facility-administered medications for this visit. SOCIAL HISTORY: Patient is . Several grandchildren live with her. She quit smoking in 1981 and reports her alcohol use as never. PHYSICAL EXAMINATION: Blood pressure 116/77, pulse 89, height 149.9 cm (4' 11), weight 71.7 kg (158 lb). General Appearance: Well appearing, alert, in no acute distress, well-hydrated, well nourished. Skin: Skin color, texture, turgor normal, no suspicious rashes or lesions. Head: Normocephalic, no masses, lesions or abnormalities. Eyes: Anicteric sclera. P Oropharynx: Lips, mucosa, and tongue normal, oropharynx normal. Neck: Supple, no adenopathy; thyroid symmetric, normal size. Lungs: Lungs clear to auscultation. Heart: RRR without murmur,. Abdomen: Abdomen soft, non-tender. Bowel sounds normal. No masses, organomegaly. Extremities: No deformities, edema, skin discoloration, clubbing or cyanosis. Impression: dysphagia 2)GERD Plan: The patient is scheduled for upper endoscopy. Preparation for the procedure and the procedure itself have been explained in detail. The risks, benefits, anticipated outcomes and possible complications were mentioned. I also explained the procedure in understandable terms and the patient was given printed material concerning the planned procedure. The patient had the opportunity to ask questions concerning the planned procedure. The patient freely consents to the planned procedure. The patient is asked to call with any questions or concerns, or if there is a change in health status between now and the scheduled procedure. I have personally interviewed and examined this patient. I have read the information that the MA documented in this encounter. I spent 30 minutes in the visit, with more than 50% of the total ewlt-hc-pzbm time of the visit in counseling / coordination of care. Felipa Martinez RN SOIL CONSERVATION AIDE.BEV Martinez RN APRN.BEV 01/02/2018 3:00 PM Addendum Please follow the instructions for upper endoscopy. Your procedure will be with Dr. Herrera on a Monday in January . Call Melissa @ Referring Provider: MARIUSZ BHANDARI [[id number]] Allergies As of Date: 01/02/2018 Noted Allergy Reaction OXYCODONE 03/23/2015 8 - GI Upset LYRICA (PREGABALIN) 10/29/2014 8 - GI Upset SEASONAL ALLERGIES 11/16/2017 14 - Other: See Comments Comments: sneezing, runny nose, and headache Date Reviewed: 01/02/2018 Reviewed by: Rita Gracia Ma - Fully Assessed Reason for Visit: Consult possible EGD [Other] Primary Visit Diagnosis:Dysphagia, unspecified type [R13.10] Other Visit Diagnosis:Gastroesophageal reflux disease, esophagitis presence not specified [K21.9] Order(s):EGD [[id number]] Order #: [id number] FUTURE Prescriptions as of 01/02/2018 Sig: DEXILANT 60 MG CAPSULE, DELAY* TAKE 1 CAPSULE DAILY ZOLEDRONIC ACID 5 MG/100 ML I* Inject 100 mL intravenously o* OLOPATADINE 0.1 % EYE DROPS Use 1 Drop in both eyes twice* VOLTAREN 1 % TOPICAL GEL APPLY 2 GRAMS TO AFFECTED ARE* CELECOXIB 100 MG CAPSULE TAKE 1 CAPSULE DAILY DIREC* IPRATROPIUM BROMIDE 0.03 % NA* USE 1 TO 2 SPRAYS NASALLY DAPHNIE* LIDOCAINE 5 % TOPICAL PATCH Apply 2 Patches as directed e* TRIAMCINOLONE ACETONIDE 0.1 %* Apply 1 application to affect* DIPHENOXYLATE-ATROPINE 2.5 MG* Take 1 tablet by mouth twice * GABAPENTIN 400 MG CAPSULE Take 1-2 capsules by mouth th* MECLIZINE 25 MG TABLET Take 1 tablet by mouth every * FLUTICASONE 50 MCG/ACTUATION * USE 1 SPRAY IN EACH NOSTRIL D* Patient not taking: Reported on 11/16/2017 COMPOUNDED PRESCRIPTION methylcobalamin CHOLECALCIFEROL (VITAMIN D3) * Take 1 capsule by mouth once * METHYLSULFONYLMETHANE 1,000 M* Take 1 tablet by mouth once d* GARLIC TABLET Take 1 tablet by mouth. CINNAMON ORAL Take by mouth. [id number]-NPO-UCTVOEUFH-VIT* Take by mouth. LORATADINE 10 MG TABLET Take 10 mg by mouth once heather* CPAP BOSWELLIA RONDA XT (BULK) M* 800 mg once daily. MULTIVITAMIN TABLET Take 1 tablet by mouth once d* VITAMIN E (DL, ACETATE) 400 U* Take 400 Units by mouth once * MAGNESIUM OXIDE 400 MG TABLET Take 1 tablet by mouth once d* Problem List As Of Date 01/02/2018 Noted Resolved Ovarian cyst, follicular [N83.00] INVALID FOR*11/10/2016 More... Plantar fasciitis, bilateral [M72.2] INVALID FOR* Osteoporosis [M81.0] Vitamin D deficiency [E55.9] Diffuse myofascial pain syndrome [M79.1] INVALID FOR* Chronic pain [G89.29] INVALID FOR* Generalized OA [M15.9] INVALID FOR* Arthritis of knee [M17.10] INVALID FOR*02/27/2017 Pain in joint, pelvic region and thigh [M25.559]INVALID FOR* DONITA on CPAP [G47.33, Z99.89] INVALID FOR*02/27/2017 GERD (gastroesophageal reflux disease) [K21.9] INVALID FOR* Arthropathy, lower leg [CTQ0821] INVALID FOR*03/23/2015 Hypercholesteremia [E78.00] Rectal bleeding [K62.5] Status post total left knee replacement [Z96.65*INVALID FOR*02/27/2017 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 Class 1 obesity due to excess calories without *INVALID FOR* Other instructions from your clinician: Please follow the instructions for upper endoscopy. Your procedure will be with Dr. Herrera, on a Monday in January . Call Melissa @ Follow-up and Disposition History Recorded Encounter Status:Closed by FELIPA MARTINEZ CNP on 01/02/18 CNCO Observed: 12/07/2017 Status: COMPLETED Source: [place] 4:32 PM [facility] REPOSITORY HNO ID: [id number] Author: Mammography Coordinator Service: (none) Author Type: Physician Type: Letter Filed: 12/11/2017 11:32 PM Note Text: December 07, 2017 PID: [id number] Nella Carlson [address] [place] [address] Dear Ms. Carlson, We are pleased to inform you that the results of your recent breast imaging exam on 12/07/2017 are normal. Early detection of cancer is very important. We also understand recommendations regarding breast cancer screening are controversial. Please discuss with your primary care provider which strategy is best for you and whether a mammogram is right for you. Your imaging studies and report will be kept on file at [facility] as part of your permanent medical record and are available for your continuing care. Thank you for allowing us to help in meeting your health care needs. Sincerely, Dr. Gee Interpreting Radiologist [facility] (Normal over 40) [facility] SCREENING Observed: 12/07/2017 Status: F Source: [place] 2:12 PM [facility] [place] REPOSITORY * * *Final Report* * * DATE OF EXAM: Dec 07 2017 2:12PM [id number] - [facility] SCREENING / PROCEDURE REASON: Encounter for screening mammogram for malignant neoplasm of breast * * * * Physician Interpretation * * * * RESULT: #[id number] - [facility] SCREENING BILATERAL DIGITAL SCREENING MAMMOGRAM WITH CAD: 12/07/2017 HISTORY: Screening Mammogram - patient reports NO breast symptoms /priors available for comparison. RESULT: TECHNIQUE: The study was acquired using full field digital technology and interpreted from soft copy. Current study was also evaluated with a Computer Aided Detection (CAD). Comparison is made to exams dated: 11/10/2016 mammogram, 11/10/2015 mammogram, 09/10/2014 mammogram - [facility], and 08/27/2013 mammogram. The tissue of both breasts is predominantly fatty. No significant masses, calcifications, or other findings are seen in either breast. There has been no significant interval change. IMPRESSION: NEGATIVE There is no mammographic evidence of malignancy.A 1 year screening mammogram is recommended. Meche vidales/anant:12/07/2017 16:32:05 Clinical Trial Associate: Kylah BEACH(Patrick)(Joseph), [facility] letter sent: Normal over 40 Mammogram BI-RADS: 1 Negative Car Whacker: Anant Transcribe Date/Time: Dec 07 2017 1:34P Dictated by: MECHE GEE MD This examination was interpreted and the report reviewed and electronically signed by: MECHE GEE MD on Dec 07 2017 4:32PM EST [id number] PROGRESS Observed: 12/07/2017 Status: COMPLETED Source: [place] 1:54 PM [facility] [place] REPOSITORY HNO ID: [id number] Author: Amanda Beach Service: (none) Author Type: (none) Type: Progress Notes Filed: 12/07/2017 1:55 PM Note Text: Radiology Service Progress Note PATIENT NAME: Nella Carlson DATE OF SERVICE: December 07, 2017 TIME: 1:54 PM PATIENT IDENTITY VERIFICATION COMPLETED USING TWO (2) METHODS: Patient confirmed name verbally and Date of . PATIENT GENDER DATA: Female. status: : No status: NO. PATIENT RELEVANT IMPLANT DATA REVIEWED: Not Applicable RADIOLOGY DEPARTMENT: [facility] DATA: Not applicable SIGNED BY: Amanda Beach December 07, 2017 1:54 PM PROGRESS Observed: 12/06/2017 Status: COMPLETED Source: [place] 7:43 AM [facility] [place] REPOSITORY HNO ID: [id number] Author: Zeyad Stratton Service: (none) Author Type: Physician Type: Progress Notes Filed: 12/06/2017 7:44 AM Note Text: The risk, benefits and alternatives of injection and no injection therapy were discussed. The patient consented for an injection. Time out was conducted. The injection site was prepped with a Chlorhexadine swab. The right Superolateral joint was injected with a 25 gauge needle with Euflexxa 2 cc . The injection site was then dressed with a bandaid. The patient tolerated the injection well. The patient was instructed to call the office if any adverse local effects occurred or any if any questions or concerns arise. Zeyad Stratton MD MODIFIED BARIUM Observed: 11/17/2017 Status: F Source: [place] SWALLOW STUDY 2:42 PM [facility] [place] REPOSITORY [facility] Speech Pathology [address] [place] [address] Modified Barium Swallow Study MR#: [id number] Acct: [id number] Name: NELLA CARLSON Rep #: [id number] : 1945 71 From: Freddy Kendall M.A. [facility] PRIMARY / SECONDARY DIAGNOSIS: dysphagia (R13.10) REFERRING PHYSICIAN: Dr. Mariusz Bhandari MD CURRENT DIET: regular textures, thin liquids DENTITION: multiple missing teeth MENTAL STATUS: WNL RESPIRATORY STATUS: O2 via room air PREVIOUS MODIFIED BARIUM SWALLOW STUDY: REASON FOR REFERRAL: Patient is a 71 year old female referred for a modified barium swallow (MBS) study to objectively assess the Patients oropharyngeal swallow function under fluoroscopy secondary to reported persistent globus sensation, initially reported early satiety, and apparent persistent reflux leading to emesis (infrequent). Patient initially describing what sounds like early satiety, though upon expansion, it appears as though the Patient is describing reflux, as she states that if I take another bite, it all is going to come up, and that she continues to feel hungry during events. MEDICAL HISTORY: Arthritis, irritable bowel syndrome, chronic pain status post left total hip replacement (2010). STUDY FINDINGS: Patient participated in a Modified Barium Swallow (MBS) study on 11/17/2017. Dr. Adler was the radiologist present for this evaluation. This study was recorded in the lateral view and images were sent to PACs for storage. The following consistencies were presented to this patient for analysis of oropharyngeal swallow function: thin liquids, pudding, and a regular textured, Honey Doone cookie. Results of the MBS are as follows: PENETRATION / ASPIRATION SCALE (PARTIDA): 1 = does not enter airway 2 = enters airway/above vocal folds/ejected 3 = enters airway/above vocal folds/not ejected 4 = enters airway/contacts vocal folds/ejected 5 = enters airway/contacts vocal folds/not ejected 6 = enters airway/below vocal folds/ejected 7 = enters airway/below vocal folds/not ejected despite effort 8 = enters airway/below vocal folds/no effort PENETRATION / ASPIRATION SCALE (SCORE): Thin liquid - 5 mL tsp.: 1 Thin liquids via cup (sequential swallows): 1 Thin liquids via cup (single sip): 1 Thin liquids via cup (single sip): 1 Thin liquids via cup (single sip): 1 Thin liquids via straw (single sip): 1 Pudding via spoon: 1 Regular textured cookie: 1 Thin liquids via straw (sequential swallows): 1 IMPRESSION: DIAGNOSIS: mild oropharyngeal dysphagia (R13.12) ORAL PHASE CHARACTERIZED BY: LABIAL SEAL: no labial escape TONGUE CONTROL DURING BOLUS MANIPULATION: intermittent posterior escape of less than half of bolus BOLUS PREPARATION / MASTICATION: timely and efficient chewing and mashing; anterior mastication BOLUS TRANSPORT / LINGUAL MOTION: intermittent brief disorganized tongue movements, though overall brisk tongue motion ORAL RESIDUE: trace residue lining oral structures PHARYNGEAL PHASE CHARACTERIZED BY: INITIATION OF PHARYNGEAL SWALLOW: bolus head at posterior laryngeal surface of epiglottis at first hyoid excursion SOFT PALATE ELEVATION: no bolus between soft palate and pharyngeal wall LARYNGEAL ELEVATION: complete superior movement of thyroid cartilage with complete approximation of arytenoids cartilage to epiglottic petiole ANTERIOR HYOID EXCURSION: partial anterior movement EPIGLOTTIC MOVEMENT: complete epiglottic inversion LARYNGEAL VESTIBULE CLOSURE AT HEIGHT OF SWALLOW: complete laryngeal vestibule closure with no air/contrast in laryngeal vestibule PHARYNGEAL STRIPPING WAVE: pharyngeal stripping wave present / complete PHARYNGOESOPHAGEAL SEGMENT OPENING: complete distension and complete duration with no obstruction of flow TONGUE BASE RETRACTION: trace column of contrast between tongue base and posterior pharyngeal wall PHARYNGEAL RESIDUE: collection of residue within or on pharyngeal structures ESOPHAGEAL PHASE CHARACTERIZED BY: ESOPHAGEAL BOLUS CLEARANCE IN THE UPRIGHT POSITION: complete clearance; esophageal coating; hiatal hernia EFFECTS OF TREATMENT STRATEGIES ATTEMPTED: Liquid chaser = effective Reduced bolus size = effective DIET TEXTURE RECOMMENDATIONS: Will recommend a regular textured, thin liquid diet. 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 Oral phase primarily marked by intermittent brief and inconsistent swallow onset delay primarily with more viscous textures, with occasional brief discoordinated movements, likely attributed to xerostomia given the lack of neurological impairment. Pharyngeal phase primarily marked by reduced closure of the airway during deglutition attributed to reduced anterior hyoid excursion resulting in intermittent disruptions in laryngeal vestibule closure timing; and unexplained pharyngeal dysmotility, with a consistent pocket of contrast retained along the location of the mandible during deglutition, with release post deglutition resulting in pharyngeal retention within the valleculae and pyriforms; atypical of traditional retention patterns, does not impact airway integrity during current study, may require further workup. The Patient does present with slight left palatal weakness in addition to a very trace lingual drift, though would not suspect this to be a causal factor, with little clinical significance suspected in regards to deglutition. All deficits ameliorated with bolus volume adjustments. Small cricopharyngeal bar located at the C-5 C-6 level no impact on pharyngeal motility. No oropharyngeal or pharyngoesophageal dysfunction noted to explain reported globus sensation and reflux / emesis. No aspiration appreciated throughout trials, unable to definitively rule out silent aspiration. RECOMMENDATIONS: No oropharyngeal or pharyngoesophageal dysfunction noted to explain reported globus sensation and reflux / emesis, would consider referral to vehicle maintenance supervisor for further workup. Patient able to comprehend and express recommended intake precautions detailed above with sufficient detail to suggest high likelihood of compliance. Provided brief overview of signs and symptoms of aspiration, with recommendations for the Patient to further discuss symptoms with PCP. No further skilled speech-language services warranted at this time targeting dysphagia. ADDITIONAL COMMENTS/RECOMMENDATIONS: Results and recommendations were discussed with the Patient immediately following MBS completion, with the Patient verbalizing understanding and agreement with all recommendations and education provided. IMAGE COUNT: [id number] G-CODES: SWALLOWING G8996 Current Status: CI SWALLOWING G8997 Goal Status: CI SWALLOWING G8998 Discharge Status: CI 11/17/17 1442 <Electronically signed by Freddy Kendall M.A., [facility]> Date Freddy Kendall M.A., [facility] Co-Signature Required for all Medicare patients Date/Time Co-Signature CC: SWALLOWING FUNCTION Observed: 11/17/2017 Status: F Source: [place] W/VIDEO 1:14 PM [facility] [place] REPOSITORY [facility] Imaging Services [address] [place] [id number] Swallowing Function w/Video MR#: [id number] Acct: [id number] Name: KWESI CARLSONRA Wilder Rep #: [id number] : 1945 F 71 From: Chuck Adler MD PCP: Mariusz Bhandari MD Status: REG CLI Study: Swallowing Function w/Video Date of Exam: 11/17/17 Exam# [id number] Ordering Dr: Mariusz Bhandari MD STUDY: SWALLOWING STUDY REASON FOR EXAM: Female, 71 years old. Dysphagia. TECHNIQUE: The examination was performed with Speech Pathology in attendance. Under fluoroscopic observation, the patient ingested thin barium, thick barium, barium pudding, and barium coated cracker. FLUOROSCOPY TIME: 1:42 minutes/seconds. 1606 spot images were obtained. RADIOLOGIST INVOLVEMENT: Radiologist was present and providing direct supervision. COMPARISON: None. FINDINGS: The following was observed during swallowing of the various mixtures of barium: Thin Barium: There was no evidence of aspiration or laryngeal penetration. Barium Pudding: There was no evidence of aspiration or laryngeal penetration. Barium Coated Cracker: There was no evidence of aspiration or laryngeal penetration. RAD/Swallowing Function w/Video IMPRESSION: Normal tailored barium swallow study. No evidence of increased risk for aspiration. The swallow study findings were discussed with the patient by the speech pathologist at the conclusion of the examination. Please see speech pathology report for more information and recommendations. Electronically Signed: Chuck Adler MD at 13:39 EDT Tel [phone], Service support , CC: Mariusz Bhandari MD Car Whacker: Signed PROGRESS Observed: 11/16/2017 Status: COMPLETED Source: [place] 2:58 PM [facility] REPOSITORY HNO ID: [id number] Author: Zeyad Stratton Service: (none) Author Type: Physician Type: Progress Notes Filed: 11/16/2017 3:00 PM Note Text: Procedure note: The risk, benefits and alternatives of injection and no injection therapy were discussed. The patient consented for an injection. Time out was conducted. The injection site was prepped with a Chlorhexadine swab. The right Superolateral joint was injected with a 25 gauge needle with Euflexxa 2 cc . The injection site was then dressed with a bandaid. The patient tolerated the injection well. The patient was instructed to call the office if any adverse local effects occurred or any if any questions or concerns arise. Zeyad Stratton MD ' PROGRESS Observed: 11/16/2017 Status: COMPLETED Source: [place] 2:23 PM [facility] REPOSITORY HNO ID: [id number] Author: Rhea Vick RN Service: (none) Author Type: (none) Type: Progress Notes Filed: 11/16/2017 3:00 PM Note Text: AMB ROOMING INTAKE FLOWSHEET DATA Risk Screening Do you have concerns about personal safety or safety in the home?: No Patient presents with: Recheck: euflexxa injection #3 right knee LOT # [id number] EXP 05-28-2018 Rhea Vick RN CNOV Observed: 11/16/2017 Status: COMPLETED Source: [place] 1:45 PM [facility] REPOSITORY Office Visit (ORTHWS) NELLA CARLSON ([id number]) 1945 F Date Time Provider Department 11/16/17 1:45 PM ZEYAD STRATTON During your visit today, we recorded the following information about you: Rhea Vick RN 11/16/2017 3:00 PM Signed AMB ROOMING INTAKE FLOWSHEET DATA Risk Screening Do you have concerns about personal safety or safety in the home?: No Patient presents with: Recheck: euflexxa injection #3 right knee LOT # [id number] EXP 05-28-2018 Rhea Stratton MD 11/16/2017 3:00 PM Signed Procedure note: The risk, benefits and alternatives of injection and no injection therapy were discussed. The patient consented for an injection. Time out was conducted. The injection site was prepped with a Chlorhexadine swab. The right Superolateral joint was injected with a 25 gauge needle with Euflexxa 2 cc . The injection site was then dressed with a bandaid. The patient tolerated the injection well. The patient was instructed to call the office if any adverse local effects occurred or any if any questions or concerns arise. Zeyad Stratton MD ' Referring Provider: ZEYAD STRATTON [[id number]] Allergies As of Date: 11/16/2017 Noted Allergy Reaction OXYCODONE 03/23/2015 8 - GI Upset LYRICA (PREGABALIN) 10/29/2014 8 - GI Upset SEASONAL ALLERGIES 11/16/2017 14 - Other: See Comments Comments: sneezing, runny nose, and headache Date Reviewed: 11/16/2017 Reviewed by: Zeyad Stratton - Fully Assessed Reason for Visit: Recheck [92] Cmt: euflexxa injection #3 right knee Primary Visit Diagnosis:Primary osteoarthritis of right knee [M17.11] Order(s):[] sodium hyaluronate 20 mg injection (EUFLEXXA)Disp: Rfl: Prescriptions as of 11/16/2017 Sig: DEXILANT 60 MG CAPSULE, DELAY* TAKE 1 CAPSULE DAILY OLOPATADINE 0.1 % EYE DROPS Use 1 Drop in both eyes twice* VOLTAREN 1 % TOPICAL GEL APPLY 2 GRAMS TO AFFECTED ARE* CELECOXIB 100 MG CAPSULE TAKE 1 CAPSULE DAILY DIREC* IPRATROPIUM BROMIDE 0.03 % NA* USE 1 TO 2 SPRAYS NASALLY DAPHNIE* LIDOCAINE 5 % TOPICAL PATCH Apply 2 Patches as directed e* TRIAMCINOLONE ACETONIDE 0.1 %* Apply 1 application to affect* DIPHENOXYLATE-ATROPINE 2.5 MG* Take 1 tablet by mouth twice * GABAPENTIN 400 MG CAPSULE Take 1-2 capsules by mouth th* MECLIZINE 25 MG TABLET Take 1 tablet by mouth every * COMPOUNDED PRESCRIPTION methylcobalamin CHOLECALCIFEROL (VITAMIN D3) * Take 1 capsule by mouth once * METHYLSULFONYLMETHANE 1,000 M* Take 1 tablet by mouth once d* GARLIC TABLET Take 1 tablet by mouth. CINNAMON ORAL Take by mouth. UHBEFLTIYZY-ZOG-PZPPLOTQN-VIT* Take by mouth. LORATADINE 10 MG TABLET Take 10 mg by mouth once heather* BOSWELLIA RONDA XT (BULK) M* 800 mg once daily. MULTIVITAMIN TABLET Take 1 tablet by mouth once d* VITAMIN E (DL, ACETATE) 400 U* Take 400 Units by mouth once * MAGNESIUM OXIDE 400 MG TABLET Take 1 tablet by mouth once d* ZOLEDRONIC ACID 5 MG/100 ML I* Inject 100 mL intravenously o* FLUTICASONE 50 MCG/ACTUATION * USE 1 SPRAY IN EACH NOSTRIL D* Patient not taking: Reported on 11/16/2017 CPAP Medication notes this encounter IPRATROPIUM BROMIDE 0.03 % NASAL SPRAY >> Rhea Vick RN 11/16/2017 2:22 PM >> RHEA VICK RN [facility] November 16, 2017 2:22 PM Started taking Problem List As Of Date 11/16/2017 Noted Resolved Ovarian cyst, follicular [N83.00] INVALID FOR*11/10/2016 More... Plantar fasciitis, bilateral [M72.2] INVALID FOR* Osteoporosis [M81.0] Vitamin D deficiency [E55.9] Diffuse myofascial pain syndrome [M79.1] INVALID FOR* Chronic pain [G89.29] INVALID FOR* Generalized OA [M15.9] INVALID FOR* Arthritis of knee [M17.10] INVALID FOR*02/27/2017 Pain in joint, pelvic region and thigh [M25.559]INVALID FOR* DONITA on CPAP [G47.33, Z99.89] INVALID FOR*02/27/2017 GERD (gastroesophageal reflux disease) [K21.9] INVALID FOR* Arthropathy, lower leg [KND2358] INVALID FOR*03/23/2015 Hypercholesteremia [E78.00] Rectal bleeding [K62.5] Status post total left knee replacement [Z96.65*INVALID FOR*02/27/2017 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 Class 1 obesity due to excess calories without *INVALID FOR* Prescriptions ordered this encounter Disp Refills Start End SODIUM HYALURONATE 10 MG/ML(MW 2.4-3* 11/16/2017 11/16/2017 Route: [facility] Encounter Status:Closed by ZEYAD STRATTON MD on 11/16/17 PROGRESS Observed: 11/09/2017 Status: COMPLETED Source: [place] 4:06 PM [facility] [place] REPOSITORY HNO ID: [id number] Author: Helena Francis Ma Service: (none) Author Type: (none) Type: Progress Notes Filed: 12/06/2017 7:44 AM Note Text: AMB ROOMING INTAKE FLOWSHEET DATA Patient here today for Euflexxa injection # 2 to the right knee. See chief complaint for lot # and exp date. CNOV Observed: 11/09/2017 Status: COMPLETED Source: [place] 3:45 PM [facility] REPOSITORY Office Visit (ORTHWS) CARLSONNELLA KAUR ([id number]) 1945 F Date Time Provider Department 11/09/17 3:45 PM ZEYAD STRATTON During your visit today, we recorded the following information about you: Helena Francis Ma 12/06/2017 7:44 AM Signed AMB ROOMING INTAKE FLOWSHEET DATA Patient here today for Euflexxa injection # 2 to the right knee. See chief complaint for lot # and exp date. Zeyad Stratton MD 12/06/2017 7:44 AM Signed The risk, benefits and alternatives of injection and no injection therapy were discussed. The patient consented for an injection. Time out was conducted. The injection site was prepped with a Chlorhexadine swab. The right Superolateral joint was injected with a 25 gauge needle with Euflexxa 2 cc . The injection site was then dressed with a bandaid. The patient tolerated the injection well. The patient was instructed to call the office if any adverse local effects occurred or any if any questions or concerns arise. Zeyad Stratton MD Referring Provider: ZEYAD STRATTON [[id number]] Allergies As of Date: 11/09/2017 Noted Allergy Reaction OXYCODONE 03/23/2015 8 - GI Upset LYRICA (PREGABALIN) 10/29/2014 8 - GI Upset Date Reviewed: 11/09/2017 Reviewed by: Zeyad Stratton - Fully Assessed Reason for Visit: Established Patient [175] Cmt: Euflexxa injection # 2 to right knee Lot # [id number] Exp: 05/28/2018 Primary Visit Diagnosis:Primary osteoarthritis of right knee [M17.11] Order(s):[] sodium hyaluronate 20 mg injection (EUFLEXXA)Disp: Rfl: Prescriptions as of 11/09/2017 Sig: DEXILANT 60 MG CAPSULE, DELAY* TAKE 1 CAPSULE DAILY OLOPATADINE 0.1 % EYE DROPS Use 1 Drop in both eyes twice* VOLTAREN 1 % TOPICAL GEL APPLY 2 GRAMS TO AFFECTED ARE* CELECOXIB 100 MG CAPSULE TAKE 1 CAPSULE DAILY DIREC* LIDOCAINE 5 % TOPICAL PATCH Apply 2 Patches as directed e* TRIAMCINOLONE ACETONIDE 0.1 %* Apply 1 application to affect* DIPHENOXYLATE-ATROPINE 2.5 MG* Take 1 tablet by mouth twice * GABAPENTIN 400 MG CAPSULE Take 1-2 capsules by mouth th* MECLIZINE 25 MG TABLET Take 1 tablet by mouth every * FLUTICASONE 50 MCG/ACTUATION * USE 1 SPRAY IN EACH NOSTRIL D* Patient not taking: Reported on 11/16/2017 COMPOUNDED PRESCRIPTION methylcobalamin CHOLECALCIFEROL (VITAMIN D3) * Take 1 capsule by mouth once * METHYLSULFONYLMETHANE 1,000 M* Take 1 tablet by mouth once d* GARLIC TABLET Take 1 tablet by mouth. CINNAMON ORAL Take by mouth. [id number]-AGZ-CAKULLGFA-VIT* Take by mouth. LORATADINE 10 MG TABLET Take 10 mg by mouth once heather* CPAP BOSWELLIA RONDA XT (BULK) M* 800 mg once daily. MULTIVITAMIN TABLET Take 1 tablet by mouth once d* VITAMIN E (DL, ACETATE) 400 U* Take 400 Units by mouth once * MAGNESIUM OXIDE 400 MG TABLET Take 1 tablet by mouth once d* ZOLEDRONIC ACID 5 MG/100 ML I* Inject 100 mL intravenously o* IPRATROPIUM BROMIDE 0.03 % NA* USE 1 TO 2 SPRAYS NASALLY DAPHNIE* Problem List As Of Date 11/09/2017 Noted Resolved Ovarian cyst, follicular [N83.00] INVALID FOR*11/10/2016 More... Plantar fasciitis, bilateral [M72.2] INVALID FOR* Osteoporosis [M81.0] Vitamin D deficiency [E55.9] Diffuse myofascial pain syndrome [M79.1] INVALID FOR* Chronic pain [G89.29] INVALID FOR* Generalized OA [M15.9] INVALID FOR* Arthritis of knee [M17.10] INVALID FOR*02/27/2017 Pain in joint, pelvic region and thigh [M25.559]INVALID FOR* DONITA on CPAP [G47.33, Z99.89] INVALID FOR*02/27/2017 GERD (gastroesophageal reflux disease) [K21.9] INVALID FOR* Arthropathy, lower leg [DYM4794] INVALID FOR*03/23/2015 Hypercholesteremia [E78.00] Rectal bleeding [K62.5] Status post total left knee replacement [Z96.65*INVALID FOR*02/27/2017 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 Prescriptions ordered this encounter Disp Refills Start End SODIUM HYALURONATE 10 MG/ML(MW 2.4-3* 11/09/2017 11/09/2017 Route: [facility] Encounter Status:Closed by ZEYAD STRATTON MD on 12/06/17 PROGRESS Observed: 11/08/2017 Status: COMPLETED Source: [place] 2:37 PM [facility] RE[facility] HNO ID: [id number] Author: Mariusz Bhandari Service: (none) Author Type: Physician Type: Progress Notes Filed: 11/10/2017 6:57 PM Note Text: Patient presents with: Recheck SUBJECTIVE: Nella Carlson is a 71 year old year old lady here today for 6 month follow up appointment for review of medical conditions. Ongoing pain lower back--worse compared to last winter. Pain injections last 1 month. Gained 10 pounds over winter. Nasal congestion when lays down at night. Nose drops working. OTC antihistamines not helping--loratadine. Benadryl too sedating. Takes natural sleep aid. Has to have coffee the next day. Not able to get off the one Celebrex--increased pain without it. Trouble swallowing. Told has something in throat that has something in throat that would interfere with swallowing. Meat, noodles, bread worst. Has to eat slowly. Has to pause between bites. Has hiatal hernia--noted on EGD. Difficulty urinating--comes in spurts when has BM that prevents from urinating. Sometimes able to empty faster once a day. Had to have something widened in the past. No problems with feeling like not emptying. Urinary incontinence too. Bleeding hemorrhoids noted. Did not like Myrbetriq. Cough with bronchitis--lately still coughing up yellow phlegm. Lately just when gets up in the AM. Getting better. PAST MEDICAL HISTORY Diagnosis Date - Arthritis - DDD (degenerative disc disease) - Hemorrhoid - Hypercholesteremia - DONITA (obstructive sleep apnea) - Osteoporosis - Ovarian cyst, follicular 09/05/2014 followed by [facility] PHYS[facility] with every 6 month pelvic US; last one 03/2014 - Plantar fasciitis, bilateral 09/05/2014 - Rectal bleeding - Vitamin D deficiency Current Outpatient Prescriptions: DEXILANT 60 mg CpDM TAKE 1 CAPSULE DAILY zoledronic acid (RECLAST) 5 mg/100 mL pgbk PREMIX piggyback Inject 100 mL intravenously one time only for 1 dose. olopatadine (PATANOL) 0.1 % ophthalmic solution Use 1 Drop in both eyes twice daily. VOLTAREN 1 % topical gel APPLY 2 GRAMS TO AFFECTED AREA FOUR TIMES A DAY celecoxib (CELEBREX) 100 mg capsule TAKE 1 CAPSULE DAILY DIRECTED Ipratropium [place] (ATROVENT) 0.03 % nasal spray USE 1 TO 2 SPRAYS NASALLY EVERY 12 HOURS DIRECTED lidocaine (LIDODERM) 5 % Apply 2 Patches as directed every 24 hours. Remove after 12 hours. Location: Lower back and knees. triamcinolone acetonide (KENALOG) 0.1 % cream Apply 1 application to affected area three times daily. As needed for rash. Apply sparingly to area for rash/itching. diphenoxylate-atropine (LOMOTIL) 2.5-0.025 mg per tablet Take 1 tablet by mouth twice daily as needed for Diarrhea. gabapentin (NEURONTIN) 400 mg capsule Take 1-2 capsules by mouth three times daily. meclizine (ANTIVERT) 25 mg tab Take 1 tablet by mouth every 6 hours as needed (dizziness). fluticasone (FLONASE) 50 mcg/actuation nasal spray USE 1 SPRAY IN EACH NOSTRIL DAILY COMPOUNDED PRESCRIPTION methylcobalamin Cholecalciferol, Vitamin D3, 5,000 unit cap Take 1 capsule by mouth once daily. (took 2 daily since April appt) Methylsulfonylmethane (MSM) 1,000 mg tab Take 1 tablet by mouth once daily. Garlic tab Take 1 tablet by mouth. CINNAMON BARK (CINNAMON ORAL) Take by mouth. Tfnbdzlysxc-XYD-Iahtjzbve-VitC cap Take by mouth. loratadine (CLARITIN) 10 mg tablet Take 10 mg by mouth once daily. CPAP BOSWELLIA RONDA EXTRACT (BOSWELLIA RONDA XT, BULK, MISC) 800 mg once daily. multivitamin (DAILY MULTI-VITAMIN) tablet Take 1 tablet by mouth once daily. VITAMIN E, DL,TOCOPHERYL ACET, (VITAMIN E, DL, ACETATE,) 400 unit cap Take 400 Units by mouth once daily. magnesium oxide (MAG-OX) 400 mg tablet Take 1 tablet by mouth once daily. No current facility-administered medications for this visit. OBJECTIVE: BP 112/72 Pulse 60 Resp 16 Wt 73.5 kg (162 lb) BMI 32.72 kg/m? Patient is alert, oriented times 3, no apparent distress, affect is bright, reactive. Last 5 Encounter BP Readings: Date: BP: 11/08/2017 112/72 09/04/2017 110/74 06/14/2017 110/70 05/03/2017 102/80 02/27/2017 104/68 Last 5 Encounter Wt Readings: Date: Wt: 11/08/2017 73.5 kg (162 lb) 09/04/2017 73 kg (161 lb) 06/14/2017 70.8 kg (156 lb) 05/03/2017 68 kg (150 lb) 02/27/2017 67.9 kg (149 lb 12.8 oz) Heart: Regular rate, rhythm, no murmurs, gallops, rubs. Lungs: Clear to auscultation, bilaterally, breathing non labored. Ext: No cyanosis, clubbing, or edema. Component Latest Ref Rng AND Units 08/19/2016 10/10/2016 04/12/2017 09/12/2017 10/30/2017 Protein, Total 6.3 - 8.0 g/dL 6.6 7.2 Albumin 3.9 - 4.9 g/dL 4.0 4.2 Calcium 8.5 - 10.2 mg/dL 9.0 9.5 9.5 Bilirubin, Total 0.2 - 1.3 mg/dL 0.6 0.4 Alkaline Phosphatase 32 - 117 U/L 72 58 AST 13 - 35 U/L 25 25 Glucose 74 - 99 mg/dL 78 69 (L) 117 (H) BUN 7 - 21 mg/dL 18 23 (H) 21 Creatinine 0.58 - 0.96 mg/dL 0.80 0.85 0.95 Sodium 136 - 144 mmol/L 140 141 140 Potassium 3.7 - 5.1 mmol/L 4.4 4.2 4.0 Chloride 97 - 105 mmol/L 103 104 103 CO2 22 - 30 mmol/L 24 23 22 Anion Gap 9 - 18 mmol/L 13 14 15 ALT 7 - 38 U/L 16 20 eGFR- >60 >60 >60 eGFR-All Other Races . >60 >60 58 WBC 3.70 - 11.00 k/uL 6.53 8.69 RBC 3.90 - 5.20 m/uL 4.46 4.91 Hemoglobin 11.5 - 15.5 g/dL 13.3 14.8 Hematocrit 36.0 - 46.0 % 42.7 46.6 (H) MCV 80.0 - 100.0 fL 95.7 94.9 MCH 26.0 - 34.0 pG 29.8 30.1 MCHC 30.5 - 36.0 g/dL 31.1 31.8 RDW-CV 11.5 - 15.0 % 14.6 13.9 Platelet Count 150 - 400 k/uL 335 372 MPV 9.0 - 12.7 fL 10.2 9.5 Absolute nRBC <0.01 k/uL <0.01 <0.01 Triglyceride <150 mg/dL 120 179 (H) Cholesterol, Total <200 mg/dL 234 (H) 240 (H) HDL Cholesterol >39 mg/dL 96 99 VLDL Cholesterol <30 mg/dL 24 36 (H) LDL Cholesterol <100 mg/dL 114 105 (H) Fasting Time hrs 13 1 TC:HDL Ratio <5.10 2.44 2.42 LDL:HDL Ratio <2.54 1.19 1.06 Non HDL Cholesterol <130 mg/dL 138 141 (H) Vitamin D 25 Hydroxy 31.0 - 80.0 ng/mL 44.5 40.2 37.4 Magnesium 1.7 - 2.3 mg/dL 2.0 1.9 ASSESSMENT AND PLAN: Encounter Diagnosis ICD-10-CM 1. Elevated glucose R73.09 HGB A1C COMP METABOLIC PANEL CANCELED: BASIC METABOLIC PNL was not fasting when was checked 2. Vitamin D deficiency E55.9 VITAMIN D 25 HYDROXY 3. Hypercholesteremia E78.00 LIPID PANEL, NONFASTING 4. Dysphagia, unspecified type R13.10 5. Early satiety R68.81 6. Encounter for long-term current use of medication Z79.899 COMP METABOLIC PANEL 7. Class 1 obesity due to excess calories without serious comorbidity with body mass index (BMI) of 32.0 to 32.9 in adult E66.09 Z68.32 Above issues addressed with patient. Patient involved in shared decision making for management of her medical issues. History and medications reviewed. Epic updated as needed Refills taken care of and meds adjusted as indicated after reviewed history, exam and labs. Health Maintenance reviewed. Updated record and/or ordered tests as recorded. Encouraged on efforts at healthy diet and regular exercise and adequate sleep. Needs to keep working on diet and exercise with lifestyle changes for effective weight loss--this could help with GERD issues. Also help with preventing DM, etc. Will get Modified Barium Cookie Swallow to evaluate dysphagia symptoms. Seems to be at pharyngoesophageal level. Discussed diagnosis of hiatal hernia and that it is not at the level of her throat. If this finds source of symptoms, then probably work with ST. If not revealing, might need UGI with SBFT to see if early satiety from lower down in GI tract. Labs as noted . Adjust meds accordingly. The majority of the visit was spent counseling and/or coordinating care for the patient. Homm-sa-tlem time was at least 25 minutes. Mariusz Bhandari MD CNOV Observed: 11/08/2017 Status: COMPLETED Source: [place] 2:20 PM [facility] REPOSITORY Office Visit (INTMWS) NELLA CARLSON ([id number]) 1945 F Date Time Provider Department 11/08/17 2:20 PM MARIUSZ BHANDARI INTMWS During your visit today, we recorded the following information about you: Pulse Respiration Blood pressure Weight 60/minute 16/minute 112/72 73.5 kg Mariusz Bhandari MD 11/10/2017 6:57 PM Signed Patient presents with: Recheck SUBJECTIVE: Nella Carlson is a 71 year old year old lady here today for 6 month follow up appointment for review of medical conditions. Ongoing pain lower back--worse compared to last winter. Pain injections last 1 month. Gained 10 pounds over winter. Nasal congestion when lays down at night. Nose drops working. OTC antihistamines not helping--loratadine. Benadryl too sedating. Takes natural sleep aid. Has to have coffee the next day. Not able to get off the one Celebrex--increased pain without it. Trouble swallowing. Told has something in throat that has something in throat that would interfere with swallowing. Meat, noodles, bread worst. Has to eat slowly. Has to pause between bites. Has hiatal hernia--noted on EGD. Difficulty urinating--comes in spurts when has BM that prevents from urinating. Sometimes able to empty faster once a day. Had to have something widened in the past. No problems with feeling like not emptying. Urinary incontinence too. Bleeding hemorrhoids noted. Did not like Myrbetriq. Cough with bronchitis--lately still coughing up yellow phlegm. Lately just when gets up in the AM. Getting better. PAST MEDICAL HISTORY Diagnosis Date - Arthritis - DDD (degenerative disc disease) - Hemorrhoid - Hypercholesteremia - DONITA (obstructive sleep apnea) - Osteoporosis - Ovarian cyst, follicular 09/05/2014 followed by [facility] with every 6 month pelvic US; last one 03/2014 - Plantar fasciitis, bilateral 09/05/2014 - Rectal bleeding - Vitamin D deficiency Current Outpatient Prescriptions: DEXILANT 60 mg CpDM TAKE 1 CAPSULE DAILY zoledronic acid (RECLAST) 5 mg/100 mL pgbk PREMIX piggyback Inject 100 mL intravenously one time only for 1 dose. olopatadine (PATANOL) 0.1 % ophthalmic solution Use 1 Drop in both eyes twice daily. VOLTAREN 1 % topical gel APPLY 2 GRAMS TO AFFECTED AREA FOUR TIMES A DAY celecoxib (CELEBREX) 100 mg capsule TAKE 1 CAPSULE DAILY DIRECTED Ipratropium [place] (ATROVENT) 0.03 % nasal spray USE 1 TO 2 SPRAYS NASALLY EVERY 12 HOURS DIRECTED lidocaine (LIDODERM) 5 % Apply 2 Patches as directed every 24 hours. Remove after 12 hours. Location: Lower back and knees. triamcinolone acetonide (KENALOG) 0.1 % cream Apply 1 application to affected area three times daily. As needed for rash. Apply sparingly to area for rash/itching. diphenoxylate-atropine (LOMOTIL) 2.5-0.025 mg per tablet Take 1 tablet by mouth twice daily as needed for Diarrhea. gabapentin (NEURONTIN) 400 mg capsule Take 1-2 capsules by mouth three times daily. meclizine (ANTIVERT) 25 mg tab Take 1 tablet by mouth every 6 hours as needed (dizziness). fluticasone (FLONASE) 50 mcg/actuation nasal spray USE 1 SPRAY IN EACH NOSTRIL DAILY COMPOUNDED PRESCRIPTION methylcobalamin Cholecalciferol, Vitamin D3, 5,000 unit cap Take 1 capsule by mouth once daily. (took 2 daily since April appt) Methylsulfonylmethane (MSM) 1,000 mg tab Take 1 tablet by mouth once daily. Garlic tab Take 1 tablet by mouth. CINNAMON BARK (CINNAMON ORAL) Take by mouth. Ljyxomaywbc-QPP-Arpmmtvsl-VitC cap Take by mouth. loratadine (CLARITIN) 10 mg tablet Take 10 mg by mouth once daily. CPAP BOSWELLIA RONDA EXTRACT (BOSWELLIA RONDA XT, BULK, MISC) 800 mg once daily. multivitamin (DAILY MULTI-VITAMIN) tablet Take 1 tablet by mouth once daily. VITAMIN E, DL,TOCOPHERYL ACET, (VITAMIN E, DL, ACETATE,) 400 unit cap Take 400 Units by mouth once daily. magnesium oxide (MAG-OX) 400 mg tablet Take 1 tablet by mouth once daily. No current facility-administered medications for this visit. OBJECTIVE: BP 112/72 Pulse 60 Resp 16 Wt 73.5 kg (162 lb) BMI 32.72 kg/m? Patient is alert, oriented times 3, no apparent distress, affect is bright, reactive. Last 5 Encounter BP Readings: Date: BP: 11/08/2017 112/72 09/04/2017 110/74 06/14/2017 110/70 05/03/2017 102/80 02/27/2017 104/68 Last 5 Encounter Wt Readings: Date: Wt: 11/08/2017 73.5 kg (162 lb) 09/04/2017 73 kg (161 lb) 06/14/2017 70.8 kg (156 lb) 05/03/2017 68 kg (150 lb) 02/27/2017 67.9 kg (149 lb 12.8 oz) Heart: Regular rate, rhythm, no murmurs, gallops, rubs. Lungs: Clear to auscultation, bilaterally, breathing non labored. Ext: No cyanosis, clubbing, or edema. Component Latest Ref Rng AND Units 08/19/2016 10/10/2016 04/12/2017 09/12/2017 10/30/2017 Protein, Total 6.3 - 8.0 g/dL 6.6 7.2 Albumin 3.9 - 4.9 g/dL 4.0 4.2 Calcium 8.5 - 10.2 mg/dL 9.0 9.5 9.5 Bilirubin, Total 0.2 - 1.3 mg/dL 0.6 0.4 Alkaline Phosphatase 32 - 117 U/L 72 58 AST 13 - 35 U/L 25 25 Glucose 74 - 99 mg/dL 78 69 (L) 117 (H) BUN 7 - 21 mg/dL 18 23 (H) 21 Creatinine 0.58 - 0.96 mg/dL 0.80 0.85 0.95 Sodium 136 - 144 mmol/L 140 141 140 Potassium 3.7 - 5.1 mmol/L 4.4 4.2 4.0 Chloride 97 - 105 mmol/L 103 104 103 CO2 22 - 30 mmol/L 24 23 22 Anion Gap 9 - 18 mmol/L 13 14 15 ALT 7 - 38 U/L 16 20 eGFR- >60 >60 >60 eGFR-All Other Races . >60 >60 58 WBC 3.70 - 11.00 k/uL 6.53 8.69 RBC 3.90 - 5.20 m/uL 4.46 4.91 Hemoglobin 11.5 - 15.5 g/dL 13.3 14.8 Hematocrit 36.0 - 46.0 % 42.7 46.6 (H) MCV 80.0 - 100.0 fL 95.7 94.9 MCH 26.0 - 34.0 pG 29.8 30.1 MCHC 30.5 - 36.0 g/dL 31.1 31.8 RDW-CV 11.5 - 15.0 % 14.6 13.9 Platelet Count 150 - 400 k/uL 335 372 MPV 9.0 - 12.7 fL 10.2 9.5 Absolute nRBC <0.01 k/uL <0.01 <0.01 Triglyceride <150 mg/dL 120 179 (H) Cholesterol, Total <200 mg/dL 234 (H) 240 (H) HDL Cholesterol >39 mg/dL 96 99 VLDL Cholesterol <30 mg/dL 24 36 (H) LDL Cholesterol <100 mg/dL 114 105 (H) Fasting Time hrs 13 1 TC:HDL Ratio <5.10 2.44 2.42 LDL:HDL Ratio <2.54 1.19 1.06 Non HDL Cholesterol <130 mg/dL 138 141 (H) Vitamin D 25 Hydroxy 31.0 - 80.0 ng/mL 44.5 40.2 37.4 Magnesium 1.7 - 2.3 mg/dL 2.0 1.9 ASSESSMENT AND PLAN: Encounter Diagnosis ICD-10-CM 1. Elevated glucose R73.09 HGB A1C COMP METABOLIC PANEL CANCELED: BASIC METABOLIC PNL was not fasting when was checked 2. Vitamin D deficiency E55.9 VITAMIN D 25 HYDROXY 3. Hypercholesteremia E78.00 LIPID PANEL, NONFASTING 4. Dysphagia, unspecified type R13.10 5. Early satiety R68.81 6. Encounter for long-term current use of medication Z79.899 COMP METABOLIC PANEL 7. Class 1 obesity due to excess calories without serious comorbidity with body mass index (BMI) of 32.0 to 32.9 in adult E66.09 Z68.32 Above issues addressed with patient. Patient involved in shared decision making for management of her medical issues. History and medications reviewed. Epic updated as needed Refills taken care of and meds adjusted as indicated after reviewed history, exam and labs. Health Maintenance reviewed. Updated record and/or ordered tests as recorded. Encouraged on efforts at healthy diet and regular exercise and adequate sleep. Needs to keep working on diet and exercise with lifestyle changes for effective weight loss--this could help with GERD issues. Also help with preventing DM, etc. Will get Modified Barium Cookie Swallow to evaluate dysphagia symptoms. Seems to be at pharyngoesophageal level. Discussed diagnosis of hiatal hernia and that it is not at the level of her throat. If this finds source of symptoms, then probably work with ST. If not revealing, might need UGI with SBFT to see if early satiety from lower down in GI tract. Labs as noted . Adjust meds accordingly. The majority of the visit was spent counseling and/or coordinating care for the patient. Tgem-hk-wnlz time was at least 25 minutes. MD Mariusz Hicks MD 11/08/2017 3:30 PM Addendum Sujatha (fexofenadine) --antihistamine like Claritin (loratadine)--might be more effective. Zyrtec (cetirizine) might be more effective since could be sedating but lasts 24 hours --usually less sedating than Benadryl, but wouldn't know until tried. Would avoid if need to be awake the next day. Sodium alginate (Gaviscon; or separately) taken 30 minutes after a meal to help with reflux. Limit amount of food eaten to 1 cup or whatever can tolerate to prevent regurgitation or worsened reflux. Referring Provider: SELF [[id number]] Allergies As of Date: 11/08/2017 Noted Allergy Reaction OXYCODONE 03/23/2015 8 - GI Upset LYRICA (PREGABALIN) 10/29/2014 8 - GI Upset Date Reviewed: 11/08/2017 Reviewed by: [employer] - Fully Assessed Reason for Visit: Recheck [92] Primary Visit Diagnosis:Elevated glucose [R73.09] Comment:was not fasting when was checked Other Visit Diagnoses:Vitamin D deficiency [E55.9] Hypercholesteremia [E78.00] Dysphagia, unspecified type [R13.10] Early satiety [R68.81] Encounter for long-term current use of medication [Z79.899] Class 1 obesity due to excess calories without serious comorbidity with body mass index (BMI) of 32.0 to 32.9 in adult [E66.09, Z68.32] Order(s):LIPID PANEL, NONFASTING [SQLIPNF] Order #: [id number] FUTURE HGB A1C [KREKD4N] Order #: [id number] FUTURE VITAMIN D 25 HYDROXY [SQVITD] Order #: [id number] FUTURE COMP METABOLIC PANEL [SQCMP] Order #: [id number] FUTURE Prescriptions as of 11/08/2017 Sig: DEXILANT 60 MG CAPSULE, DELAY* TAKE 1 CAPSULE DAILY ZOLEDRONIC ACID 5 MG/100 ML I* Inject 100 mL intravenously o* OLOPATADINE 0.1 % EYE DROPS Use 1 Drop in both eyes twice* VOLTAREN 1 % TOPICAL GEL APPLY 2 GRAMS TO AFFECTED ARE* CELECOXIB 100 MG CAPSULE TAKE 1 CAPSULE DAILY DIREC* IPRATROPIUM BROMIDE 0.03 % NA* USE 1 TO 2 SPRAYS NASALLY DAPHNIE* LIDOCAINE 5 % TOPICAL PATCH Apply 2 Patches as directed e* TRIAMCINOLONE ACETONIDE 0.1 %* Apply 1 application to affect* DIPHENOXYLATE-ATROPINE 2.5 MG* Take 1 tablet by mouth twice * GABAPENTIN 400 MG CAPSULE Take 1-2 capsules by mouth th* MECLIZINE 25 MG TABLET Take 1 tablet by mouth every * FLUTICASONE 50 MCG/ACTUATION * USE 1 SPRAY IN EACH NOSTRIL D* COMPOUNDED PRESCRIPTION methylcobalamin CHOLECALCIFEROL (VITAMIN D3) * Take 1 capsule by mouth once * METHYLSULFONYLMETHANE 1,000 M* Take 1 tablet by mouth once d* GARLIC TABLET Take 1 tablet by mouth. CINNAMON ORAL Take by mouth. NNAUTOHMBZF-POI-MDRPBTWEV-VIT* Take by mouth. LORATADINE 10 MG TABLET Take 10 mg by mouth once heather* CPAP BOSWELLIA RONDA XT (BULK) M* 800 mg once daily. MULTIVITAMIN TABLET Take 1 tablet by mouth once d* VITAMIN E (DL, ACETATE) 400 U* Take 400 Units by mouth once * MAGNESIUM OXIDE 400 MG TABLET Take 1 tablet by mouth once d* Medication notes this encounter ZOLEDRONIC ACID 5 MG/100 ML IN MANNITOL 5 %-WATER INTRAVENOUS PIGGYBCK >> Mariusz Bhandari MD 11/08/2017 3:01 PM >> MARIUSZ BHANDARI MD MonNovember 08, 2017 3:01 PM Got 09/21/17 through [facility] Problem List As Of Date 11/08/2017 Noted Resolved Ovarian cyst, follicular [N83.00] INVALID FOR*11/10/2016 More... Plantar fasciitis, bilateral [M72.2] INVALID FOR* Osteoporosis [M81.0] Vitamin D deficiency [E55.9] Diffuse myofascial pain syndrome [M79.1] INVALID FOR* Chronic pain [G89.29] INVALID FOR* Generalized OA [M15.9] INVALID FOR* Arthritis of knee [M17.10] INVALID FOR*02/27/2017 Pain in joint, pelvic region and thigh [M25.559]INVALID FOR* DONITA on CPAP [G47.33, Z99.89] INVALID FOR*02/27/2017 GERD (gastroesophageal reflux disease) [K21.9] INVALID FOR* Arthropathy, lower leg [NVC9247] INVALID FOR*03/23/2015 Hypercholesteremia [E78.00] Rectal bleeding [K62.5] Status post total left knee replacement [Z96.65*INVALID FOR*02/27/2017 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 Other instructions from your clinician: Sujatha (fexofenadine) --antihistamine like Claritin (loratadine)--might be more effective. Zyrtec (cetirizine) might be more effective since could be sedating but lasts 24 hours --usually less sedating than Benadryl, but wouldn't know until tried. Would avoid if need to be awake the next day. Sodium alginate (Gaviscon; or separately) taken 30 minutes after a meal to help with reflux. Limit amount of food eaten to 1 cup or whatever can tolerate to prevent regurgitation or worsened reflux. Medications Discontinued During This Encounter Biotin 2,500 mcg cap 0 08/26/2014 11/08/2017 Class: Historical Med Si,000 mcg. Patient takes 5,000 mcg daily Disc: Course of therapy completed Cyanocobalamin-Cobamamide 5,000-100 * 11/08/2017 Class: Historical Med Route: SUBLINGUAL Sig: Dissolve 5,100 mcg under the tongue once daily. Disc: Course of therapy completed Disposition: Return in about 6 months (around 05/11/2018) for 6 months follow up. Follow-up and Disposition History Recorded Letter Text Department of Internal Medicine Mariusz Bhandari MD [address] [phone] 11/08/2017 THIS IS A PRESCRIPTION FOR HANDICAPPED PARKING PERMIT Re: Nella Carlson [address] [facility] [address] The above named person requires a disability parking placard. DURATION: LIFETIME EXPIRATION: RENEW EVERY 5 YEARS Sincerely, Mariusz Bhandari MD Encounter Status:Closed by MARIUSZ BHANDARI MD on 11/10/17 PROGRESS Observed: 11/02/2017 Status: COMPLETED Source: [place] 5:07 PM [facility] [place] REPOSITORY HNO ID: [id number] Author: Zeyad Stratton Service: (none) Author Type: Physician Type: Progress Notes Filed: 11/30/2017 8:02 AM Note Text: Zeyad Stratton MD Department of Orthopaedics [facility] [address] [place] [address] Dept: [phone] Dept November 02, 2017 CHIEF COMPLAINT: Established Patient (Euflexxa injection # 1 to right knee Lot # [id number] Exp: 05/28/2018) Ms. Nella Carlson is a 71 year old female Who returns today for Euflexxa, Visco supplementation.She's been having a bit of worse, 2 out of 10 dull and aching and constant knee pain. This is not unlike previous episodes where she has done very well with gentle injections in the past. ASSESSMENT: M17.11 Primary osteoarthritis of right knee (primary encounter diagnosis) PLAN: We'll begin a series of Euflexxa. Ms. Nella Carlson was advised as to contrast therapies and/or to take analgesics/anti-inflammatories as needed and all contraindications were reviewed. OBJECTIVE: Ms. Nella Carlson is a pleasant 71 year old in no apparent distress. Gen:There were no vitals taken for this visit. nl development, non obese, no deformities ENT: Normocephalic, normal hearing, moist mucosa CV: Pulses:DP/PT= 2+ and symmetric, capillary refill < 2 secs, no peripheral edema/varicosities Skin: no rash, bruising or lesions. Good turgor. Psych: cooperative and appropriate, alert and oriented x 3, good mood and affect. Musculoskeletal: slight varus alignment which corrects to neutral, tenderness to palpation along the medial joint line. No crepitance with range of motion and strength is 5 out of 5 at the hip, knee and ankle. Procedure note: The risk, benefits and alternatives of injection and no injection therapy were discussed. The patient consented for an injection. Time out was conducted. The injection site was prepped with a Chlorhexadine swab. The right Superolateral joint was injected with a 25 gauge needle with Euflexxa 2 cc . The injection site was then dressed with a bandaid. The patient tolerated the injection well. The patient was instructed to call the office if any adverse local effects occurred or any if any questions or concerns arise. Zeyad Stratton MD Imaging: Deferred today Supporting Subjective Information Below: Past Surgical History: PAST SURGICAL HISTORY Procedure Laterality Date - COLONOSCOP W/ OR W/O [facility] SPEC 07/30/15 Colonoscopy (MAC) - COLONOSCOPY multiple - EGD - PAST SURGICAL HISTORY OF Left shoulder arthroscopy - PAST SURGICAL HISTORY OF Partial hysterectomy - PAST SURGICAL HISTORY OF 03/2015 knee replacement left - REMOVE TONSILS/ADENOIDS,12+ Y/O 1985 T/A (over age 13 years) - ROTATOR CUFF REPAIR 2005 Right shoulder - TOTAL HIP REPLACEMENT 2010 Hip replacement, total sondra Medications: Current Outpatient Prescriptions: DEXILANT 60 mg CpDM TAKE 1 CAPSULE DAILY olopatadine (PATANOL) 0.1 % ophthalmic solution Use 1 Drop in both eyes twice daily. VOLTAREN 1 % topical gel APPLY 2 GRAMS TO AFFECTED AREA FOUR TIMES A DAY celecoxib (CELEBREX) 100 mg capsule TAKE 1 CAPSULE DAILY DIRECTED lidocaine (LIDODERM) 5 % Apply 2 Patches as directed every 24 hours. Remove after 12 hours. Location: Lower back and knees. triamcinolone acetonide (KENALOG) 0.1 % cream Apply 1 application to affected area three times daily. As needed for rash. Apply sparingly to area for rash/itching. diphenoxylate-atropine (LOMOTIL) 2.5-0.025 mg per tablet Take 1 tablet by mouth twice daily as needed for Diarrhea. gabapentin (NEURONTIN) 400 mg capsule Take 1-2 capsules by mouth three times daily. meclizine (ANTIVERT) 25 mg tab Take 1 tablet by mouth every 6 hours as needed (dizziness). fluticasone (FLONASE) 50 mcg/actuation nasal spray USE 1 SPRAY IN EACH NOSTRIL DAILY COMPOUNDED PRESCRIPTION methylcobalamin Cholecalciferol, Vitamin D3, 5,000 unit cap Take 1 capsule by mouth once daily. (took 2 daily since April appt) Methylsulfonylmethane (MSM) 1,000 mg tab Take 1 tablet by mouth once daily. Garlic tab Take 1 tablet by mouth. CINNAMON BARK (CINNAMON ORAL) Take by mouth. Uaddgzkcumn-EBI-Vqtgwrziv-VitC cap Take by mouth. loratadine (CLARITIN) 10 mg tablet Take 10 mg by mouth once daily. BOSWELLIA RONDA EXTRACT (BOSWELLIA RONDA XT, BULK, MISC) 800 mg once daily. Cyanocobalamin-Cobamamide 5,000-100 mcg lozg Dissolve 5,100 mcg under the tongue once daily. multivitamin (DAILY MULTI-VITAMIN) tablet Take 1 tablet by mouth once daily. VITAMIN E, DL,TOCOPHERYL ACET, (VITAMIN E, DL, ACETATE,) 400 unit cap Take 400 Units by mouth once daily. magnesium oxide (MAG-OX) 400 mg tablet Take 1 tablet by mouth once daily. zoledronic acid (RECLAST) 5 mg/100 mL pgbk PREMIX piggyback Inject 100 mL intravenously one time only for 1 dose. Ipratropium [place] (ATROVENT) 0.03 % nasal spray USE 1 TO 2 SPRAYS NASALLY EVERY 12 HOURS DIRECTED CPAP Biotin 2,500 mcg cap 5,000 mcg. Patient takes 5,000 mcg daily Current Facility-Administered Medications: [COMPLETED] sodium hyaluronate 20 mg injection (EUFLEXXA) 2 mL INTRA-ARTICULAR ONCE Allergies: Oxycodone; Lyrica [Pregabalin] ROS: General (negative for fatigue, malaise, weight loss/gain) HEENT (negative for headache, earache, recent vision changes, sinus pain, sore throat) Respiratory (no recent shortness of breath, hemoptysis) CV (negative for chest tightness, palpitations) Musculoskeletal (see HPI) Psych (no depression, anxiety) This note was partially generated using Aubrey voice recognition system, and there may be some incorrect words, spellings, and punctuation that were not noted in checking the note before saving. MD BAHMAN FreedmanOV Observed: 11/02/2017 Status: COMPLETED Source: [place] 10:30 AM [facility] REPOSITORY Office Visit (ORTHWS) NELLA CARLSON ([id number]) 1945 F Date Time Provider Department 11/02/17 10:30 AM ZEYAD STRATTON During your visit today, we recorded the following information about you: Helena Francis Ma 11/30/2017 8:02 AM Signed AMB ROOMING INTAKE FLOWSHEET DATA Risk Screening Do you have concerns about personal safety or safety in the home?: No Pain Pain Score: 2/10 Pain Location: Knee-Right Description: Aching, Dull Duration Amount of Time: (ongoing) Frequency: Continuous Intervention: Medication Patient here today for Euflexxa injection # 1 to right knee. See chief complaint for lot # and exp date. Zeyad Stratton MD 11/30/2017 8:02 AM Signed Zeyad Stratton MD Department of Orthopaedics Orthopaedics [address] [place] [address] Dept: [phone] Dept November 02, 2017 CHIEF COMPLAINT: Established Patient (Euflexxa injection # 1 to right knee Lot # [id number] Exp: 05/28/2018) Ms. Nella Carlson is a 71 year old female Who returns today for Euflexxa, Visco supplementation.She's been having a bit of worse, 2 out of 10 dull and aching and constant knee pain. This is not unlike previous episodes where she has done very well with gentle injections in the past. ASSESSMENT: M17.11 Primary osteoarthritis of right knee (primary encounter diagnosis) PLAN: We'll begin a series of Euflexxa. Ms. Nella Carlson was advised as to contrast therapies and/or to take analgesics/anti-inflammatories as needed and all contraindications were reviewed. OBJECTIVE: Ms. Nella Carlson is a pleasant 71 year old in no apparent distress. Gen:There were no vitals taken for this visit. nl development, non obese, no deformities ENT: Normocephalic, normal hearing, moist mucosa CV: Pulses:DP/PT= 2+ and symmetric, capillary refill < 2 secs, no peripheral edema/varicosities Skin: no rash, bruising or lesions. Good turgor. Psych: cooperative and appropriate, alert and oriented x 3, good mood and affect. Musculoskeletal: slight varus alignment which corrects to neutral, tenderness to palpation along the medial joint line. No crepitance with range of motion and strength is 5 out of 5 at the hip, knee and ankle. Procedure note: The risk, benefits and alternatives of injection and no injection therapy were discussed. The patient consented for an injection. Time out was conducted. The injection site was prepped with a Chlorhexadine swab. The right Superolateral joint was injected with a 25 gauge needle with Euflexxa 2 cc . The injection site was then dressed with a bandaid. The patient tolerated the injection well. The patient was instructed to call the office if any adverse local effects occurred or any if any questions or concerns arise. Zeyad Stratton MD Imaging: Deferred today Supporting Subjective Information Below: Past Surgical History: PAST SURGICAL HISTORY Procedure Laterality Date - COLONOSCOP W/ OR W/O [facility] SPEC 07/30/15 Colonoscopy (MAC) - COLONOSCOPY multiple - EGD - PAST SURGICAL HISTORY OF Left shoulder arthroscopy - PAST SURGICAL HISTORY OF Partial hysterectomy - PAST SURGICAL HISTORY OF 03/2015 knee replacement left - REMOVE TONSILS/ADENOIDS,12+ Y/O 1984 T/A (over age 13 years) - ROTATOR CUFF REPAIR 2005 Right shoulder - TOTAL HIP REPLACEMENT 2010 Hip replacement, total sondra Medications: Current Outpatient Prescriptions: DEXILANT 60 mg CpDM TAKE 1 CAPSULE DAILY olopatadine (PATANOL) 0.1 % ophthalmic solution Use 1 Drop in both eyes twice daily. VOLTAREN 1 % topical gel APPLY 2 GRAMS TO AFFECTED AREA FOUR TIMES A DAY celecoxib (CELEBREX) 100 mg capsule TAKE 1 CAPSULE DAILY DIRECTED lidocaine (LIDODERM) 5 % Apply 2 Patches as directed every 24 hours. Remove after 12 hours. Location: Lower back and knees. triamcinolone acetonide (KENALOG) 0.1 % cream Apply 1 application to affected area three times daily. As needed for rash. Apply sparingly to area for rash/itching. diphenoxylate-atropine (LOMOTIL) 2.5-0.025 mg per tablet Take 1 tablet by mouth twice daily as needed for Diarrhea. gabapentin (NEURONTIN) 400 mg capsule Take 1-2 capsules by mouth three times daily. meclizine (ANTIVERT) 25 mg tab Take 1 tablet by mouth every 6 hours as needed (dizziness). fluticasone (FLONASE) 50 mcg/actuation nasal spray USE 1 SPRAY IN EACH NOSTRIL DAILY COMPOUNDED PRESCRIPTION methylcobalamin Cholecalciferol, Vitamin D3, 5,000 unit cap Take 1 capsule by mouth once daily. (took 2 daily since April appt) Methylsulfonylmethane (MSM) 1,000 mg tab Take 1 tablet by mouth once daily. Garlic tab Take 1 tablet by mouth. CINNAMON BARK (CINNAMON ORAL) Take by mouth. Nkjoibehtna-ZWH-Wqugarvlt-VitC cap Take by mouth. loratadine (CLARITIN) 10 mg tablet Take 10 mg by mouth once daily. BOSWELLIA RONDA EXTRACT (BOSWELLIA RONDA XT, BULK, MISC) 800 mg once daily. Cyanocobalamin-Cobamamide 5,000-100 mcg lozg Dissolve 5,100 mcg under the tongue once daily. multivitamin (DAILY MULTI-VITAMIN) tablet Take 1 tablet by mouth once daily. VITAMIN E, DL,TOCOPHERYL ACET, (VITAMIN E, DL, ACETATE,) 400 unit cap Take 400 Units by mouth once daily. magnesium oxide (MAG-OX) 400 mg tablet Take 1 tablet by mouth once daily. zoledronic acid (RECLAST) 5 mg/100 mL pgbk PREMIX piggyback Inject 100 mL intravenously one time only for 1 dose. Ipratropium [place] (ATROVENT) 0.03 % nasal spray USE 1 TO 2 SPRAYS NASALLY EVERY 12 HOURS DIRECTED CPAP Biotin 2,500 mcg cap 5,000 mcg. Patient takes 5,000 mcg daily Current Facility-Administered Medications: [COMPLETED] sodium hyaluronate 20 mg injection (EUFLEXXA) 2 mL INTRA-ARTICULAR ONCE Allergies: Oxycodone; Lyrica [Pregabalin] ROS: General (negative for fatigue, malaise, weight loss/gain) HEENT (negative for headache, earache, recent vision changes, sinus pain, sore throat) Respiratory (no recent shortness of breath, hemoptysis) CV (negative for chest tightness, palpitations) Musculoskeletal (see HPI) Psych (no depression, anxiety) This note was partially generated using Aubrey voice recognition system, and there may be some incorrect words, spellings, and punctuation that were not noted in checking the note before saving. Zeyad Stratton MD Referring Provider: ZEYAD STRATTON [[id number]] Allergies As of Date: 11/02/2017 Noted Allergy Reaction OXYCODONE 03/23/2015 8 - GI Upset LYRICA (PREGABALIN) 10/29/2014 8 - GI Upset Date Reviewed: 11/02/2017 Reviewed by: Zeyad Stratton - Fully Assessed Reason for Visit: Established Patient [175] Cmt: Euflexxa injection # 1 to right knee Lot # [id number] Exp: 05/28/2018 Primary Visit Diagnosis:Primary osteoarthritis of right knee [M17.11] Order(s):[] sodium hyaluronate 20 mg injection (EUFLEXXA)Disp: Rfl: Prescriptions as of 11/02/2017 Sig: DEXILANT 60 MG CAPSULE, DELAY* TAKE 1 CAPSULE DAILY OLOPATADINE 0.1 % EYE DROPS Use 1 Drop in both eyes twice* VOLTAREN 1 % TOPICAL GEL APPLY 2 GRAMS TO AFFECTED ARE* CELECOXIB 100 MG CAPSULE TAKE 1 CAPSULE DAILY DIREC* LIDOCAINE 5 % TOPICAL PATCH Apply 2 Patches as directed e* TRIAMCINOLONE ACETONIDE 0.1 %* Apply 1 application to affect* DIPHENOXYLATE-ATROPINE 2.5 MG* Take 1 tablet by mouth twice * GABAPENTIN 400 MG CAPSULE Take 1-2 capsules by mouth th* MECLIZINE 25 MG TABLET Take 1 tablet by mouth every * FLUTICASONE 50 MCG/ACTUATION * USE 1 SPRAY IN EACH NOSTRIL D* Patient not taking: Reported on 11/16/2017 COMPOUNDED PRESCRIPTION methylcobalamin CHOLECALCIFEROL (VITAMIN D3) * Take 1 capsule by mouth once * METHYLSULFONYLMETHANE 1,000 M* Take 1 tablet by mouth once d* GARLIC TABLET Take 1 tablet by mouth. CINNAMON ORAL Take by mouth. HBXOONCLNZA-VUG-ZBJGDXKAF-VIT* Take by mouth. LORATADINE 10 MG TABLET Take 10 mg by mouth once heather* BOSWELLIA RONDA XT (BULK) M* 800 mg once daily. X CYANOCOBALAMIN (B12)-COBAMAMI* Dissolve 5,100 mcg under the * MULTIVITAMIN TABLET Take 1 tablet by mouth once d* VITAMIN E (DL, ACETATE) 400 U* Take 400 Units by mouth once * MAGNESIUM OXIDE 400 MG TABLET Take 1 tablet by mouth once d* ZOLEDRONIC ACID 5 MG/100 ML I* Inject 100 mL intravenously o* IPRATROPIUM BROMIDE 0.03 % NA* USE 1 TO 2 SPRAYS NASALLY DAPHNIE* CPAP X BIOTIN 2,500 MCG CAPSULE 5,000 mcg. Patient takes 5,00* Problem List As Of Date 11/02/2017 Noted Resolved Ovarian cyst, follicular [N83.00] INVALID FOR*11/10/2016 More... Plantar fasciitis, bilateral [M72.2] INVALID FOR* Osteoporosis [M81.0] Vitamin D deficiency [E55.9] Diffuse myofascial pain syndrome [M79.1] INVALID FOR* Chronic pain [G89.29] INVALID FOR* Generalized OA [M15.9] INVALID FOR* Arthritis of knee [M17.10] INVALID FOR*02/27/2017 Pain in joint, pelvic region and thigh [M25.559]INVALID FOR* DONITA on CPAP [G47.33, Z99.89] INVALID FOR*02/27/2017 GERD (gastroesophageal reflux disease) [K21.9] INVALID FOR* Arthropathy, lower leg [TDW6204] INVALID FOR*03/23/2015 Hypercholesteremia [E78.00] Rectal bleeding [K62.5] Status post total left knee replacement [Z96.65*INVALID FOR*02/27/2017 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 Prescriptions ordered this encounter Disp Refills Start End SODIUM HYALURONATE 10 MG/ML(MW 2.4-3* 11/02/2017 11/02/2017 Route: [facility] Encounter Status:Closed by ZEYAD STRATTON MD on 11/30/17 PROGRESS Observed: 11/02/2017 Status: COMPLETED Source: [place] 10:13 AM [facility] REPOSITORY HNO ID: [id number] Author: Helena Francis Ma Service: (none) Author Type: (none) Type: Progress Notes Filed: 11/30/2017 8:02 AM Note Text: AMB ROOMING INTAKE FLOWSHEET DATA Risk Screening Do you have concerns about personal safety or safety in the home?: No Pain Pain Score: 2/10 Pain Location: Knee-Right Description: Aching, Dull Duration Amount of Time: (ongoing) Frequency: Continuous Intervention: Medication Patient here today for Euflexxa injection # 1 to right knee. See chief complaint for lot # and exp date. LIPID PANEL, BASIC Collected: 10/30/2017 Status: F Source: [place] 11:59 AM [facility] REPOSITORY TYPE CODE TESTS RESULT OUT OF REFERENCE UNITS RANGE LAB CHOL <200 mg/dL Cholesterol High 240 Result Comment: <200 mg/dL, Desirable 200-239 mg/dL, Borderline high >239 mg/dL, High LAB TRIGLY <150 mg/dL Triglyceride High 179 Result Comment: <150 mg/dL, Normal 150-199 mg/dL, Borderline high 200-499 mg/dL, High >499 mg/dL, Very high LAB HDL >39 mg/dL HDL-Cholesterol 99 Result Comment: 40-59 mg/dL, Acceptable >59 mg/dL, High: Negative risk factor for coronary heart disease <40 mg/dL, Low: Positive risk factor for coronary heart disease LAB LDL <100 mg/dL LDL-Cholesterol High 105 Result Comment: <100 mg/dL, Optimal 100-129 mg/dL, Near optimal/above optimal 130-159 mg/dL, Borderline high 160-189 mg/dL, High >189 mg/dL, Very high Secondary prevention optimal LDL Cholesterol levels are recommended to be < 70 mg/dL LAB NONHDL <130 mg/dL Non HDL High Cholesterol 141 Result Comment: <130 mg/dL, Optimal 130-159 mg/dL, Near optimal/above optimal 160-189 mg/dL, Borderline high 190-219 mg/dL, High >219 mg/dL, Very high Secondary prevention optimal non HDL Cholesterol levels are recommended to be < 100 mg/dL LAB FT hrs Fasting Time 1 LAB VLDL <30 mg/dL High VLDL Cholesterol 36 LAB TCHDL <5.10 TC:HDL Ratio 2.42 LAB LDLHDL <2.54 LDL:HDL Ratio 1.06 Result Comment: Reference: 1. National Cholesterol Education Program ATP III Guideline At-A-Glance Quick Desk Reference: National Heart, Lung, and Blood [place]. National Institutes of Health. 2001: NIH Publication No. 01-3305. 2. An International Atherosclerosis Society position paper: global recommendations for the management of dyslipidemia: executive summary, Atherosclerosis. 2014: 232(2):410-413. Performed By: #### LIPB #### [facility] [address] [place] [address] CORTEZ Observed: 10/24/2017 Status: COMPLETED Source: [place] 12:00 AM [facility] REPOSITORY Patient Outreach (INTMWH) NELLA CARLSON ([id number]) 1945 F Date Time Provider Department 10/24/17 [facility] During your visit today, we recorded the following information about you: Allergies As of Date: 10/24/2017 Noted Allergy Reaction OXYCODONE 03/23/2015 8 - GI Upset LYRICA (PREGABALIN) 10/29/2014 8 - GI Upset Date Reviewed: 10/09/2017 Reviewed by: Demetria Angulo (Pa) - Fully Assessed Visit Diagnosis:Medication management [Z79.899] Order(s):LIPID PANEL BASIC [SQLIPB] Order #: [id number] FUTURE Prescriptions as of 10/24/2017 Sig: DEXILANT 60 MG CAPSULE, DELAY* TAKE 1 CAPSULE DAILY ZOLEDRONIC ACID 5 MG/100 ML I* Inject 100 mL intravenously o* OLOPATADINE 0.1 % EYE DROPS Use 1 Drop in both eyes twice* VOLTAREN 1 % TOPICAL GEL APPLY 2 GRAMS TO AFFECTED ARE* X CELECOXIB 100 MG CAPSULE TAKE 1 CAPSULE DAILY DIREC* IPRATROPIUM BROMIDE 0.03 % NA* USE 1 TO 2 SPRAYS NASALLY DAPHNIE* LIDOCAINE 5 % TOPICAL PATCH Apply 2 Patches as directed e* TRIAMCINOLONE ACETONIDE 0.1 %* Apply 1 application to affect* DIPHENOXYLATE-ATROPINE 2.5 MG* Take 1 tablet by mouth twice * GABAPENTIN 400 MG CAPSULE Take 1-2 capsules by mouth th* MECLIZINE 25 MG TABLET Take 1 tablet by mouth every * FLUTICASONE 50 MCG/ACTUATION * USE 1 SPRAY IN EACH NOSTRIL D* Patient not taking: Reported on 11/16/2017 COMPOUNDED PRESCRIPTION methylcobalamin CHOLECALCIFEROL (VITAMIN D3) * Take 1 capsule by mouth once * METHYLSULFONYLMETHANE 1,000 M* Take 1 tablet by mouth once d* GARLIC TABLET Take 1 tablet by mouth. CINNAMON ORAL Take by mouth. DSWTNECWQXX-PYP-UQNSBCKWO-VIT* Take by mouth. LORATADINE 10 MG TABLET Take 10 mg by mouth once heather* CPAP BOSWELLIA RONDA XT (BULK) M* 800 mg once daily. X CYANOCOBALAMIN (B12)-COBAMAMI* Dissolve 5,100 mcg under the * MULTIVITAMIN TABLET Take 1 tablet by mouth once d* VITAMIN E (DL, ACETATE) 400 U* Take 400 Units by mouth once * MAGNESIUM OXIDE 400 MG (241.3* Take 1 tablet by mouth once d* X BIOTIN 2,500 MCG CAPSULE 5,000 mcg. Patient takes 5,00* Problem List As Of Date 10/24/2017 Noted Resolved Ovarian cyst, follicular [N83.00] INVALID FOR*11/10/2016 More... Plantar fasciitis, bilateral [M72.2] INVALID FOR* Osteoporosis [M81.0] Vitamin D deficiency [E55.9] Diffuse myofascial pain syndrome [M79.18] INVALID FOR* Chronic pain [G89.29] INVALID FOR* Generalized OA [M15.9] INVALID FOR* Arthritis of knee [M17.10] INVALID FOR*02/27/2017 Pain in joint, pelvic region and thigh [M25.559]INVALID FOR* DONITA on CPAP [G47.33, Z99.89] INVALID FOR*02/27/2017 GERD (gastroesophageal reflux disease) [K21.9] INVALID FOR* Arthropathy, lower leg [LNK0375] INVALID FOR*03/23/2015 Hypercholesteremia [E78.00] Rectal bleeding [K62.5] Status post total left knee replacement [Z96.65*INVALID FOR*02/27/2017 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 Encounter Status:Closed by EPIC, PRODUSER on 03/30/18 PROGRESS Observed: 10/09/2017 Status: COMPLETED Source: [place] 2:23 PM [facility] [place] REPOSITORY HNO ID: [id number] Author: Demetria Angulo (Pa) Service: (none) Author Type: Physician Laser Specialist Type: Progress Notes Filed: 10/09/2017 2:28 PM Note Text: Demetria Angulo PA-C Department of Orthopaedics Orthopaed[facility] [address] [facility] [address] Dept: [phone] Dept October 09, 2017 CHIEF COMPLAINT: Established Patient (4 months post visit right hip pain - wants injection) Ms. Nella Carlson is a 71 year old female, she presents with right greater trochanteric bursitis. Last corticosteroid injection was in May 2017, she notes pain has returned in the past week. Pain today is 3/10 aching that is worse with climbing stairs. She would like repeat injection. ASSESSMENT: M70.61 Greater trochanteric bursitis of right hip (primary encounter diagnosis) M25.551 Pain in right hip PLAN: we will proceed with right greater trochanter bursa corticosteroid injection today. Patient was encouraged to work on gentle stretching exercises. Ms. Nella Carlson was advised as to contrast therapies and/or to take analgesics/anti-inflammatories as needed and all contraindications were reviewed. OBJECTIVE: Ms. Nella Carlson is a pleasant 71 year old in no apparent distress. Gen:There were no vitals taken for this visit. nl development, obese, no deformities ENT: Normocephalic, normal hearing, moist mucosa CV: Pulses:DP/PT= 2+ and symmetric, capillary refill < 2 secs, no peripheral edema/varicosities Skin: no rash, bruising or lesions. Good turgor. Psych: cooperative and appropriate, alert and oriented x 3, good mood and affect. Musculoskeletal: Right: ROM: Extension: Normal Flexion: 100 degrees Internal Rotation: 30 degrees External Rotation: 30 degrees Abduction: 30 degrees Adduction: 15 degrees Strength: Abduction 4/5 and Flexion 4/5 Palpation: Tenderness over the right greater trochanteric bursa. Log roll: painful. Straight leg raise: Reproduces midline lumbar back pain Neurovascular Status: Sensation Intact and Moves foot and ankle up AND down ? ? ? Procedure note The risk, benefits and alternatives of injection and no injection therapy were discussed. The patient consented for an injection. Time out was conducted. The injection site was prepped with a Chlorhexadine swab. The right great greater trochanteric bursa was injected with a 25 gauge needle with 0.5 cc (6 mg) Celestone, 3 cc Lidocaine 1% Plain. The injection site was then dressed with a bandaid. The patient tolerated the injection well. The patient was instructed to call the office if any adverse local effects occurred or any if any questions or concerns arise. Demetria Angulo PA-C Imaging: deferred today Supporting Subjective Information Below: Past Surgical History: PAST SURGICAL HISTORY Procedure Laterality Date - COLONOSCOP W/ OR W/O [facility] SPEC 07/30/15 Colonoscopy (MAC) - COLONOSCOPY multiple - EGD - PAST SURGICAL HISTORY OF Left shoulder arthroscopy - PAST SURGICAL HISTORY OF Partial hysterectomy - PAST SURGICAL HISTORY OF 03/2015 knee replacement left - REMOVE TONSILS/ADENOIDS,12+ Y/O 1985 T/A (over age 13 years) - ROTATOR CUFF REPAIR 2005 Right shoulder - TOTAL HIP REPLACEMENT 2010 Hip replacement, total sondra Medications: Current Outpatient Prescriptions: DEXILANT 60 mg CpDM TAKE 1 CAPSULE DAILY olopatadine (PATANOL) 0.1 % ophthalmic solution Use 1 Drop in both eyes twice daily. VOLTAREN 1 % topical gel APPLY 2 GRAMS TO AFFECTED AREA FOUR TIMES A DAY celecoxib (CELEBREX) 100 mg capsule TAKE 1 CAPSULE DAILY DIRECTED Ipratropium [place] (ATROVENT) 0.03 % nasal spray USE 1 TO 2 SPRAYS NASALLY EVERY 12 HOURS DIRECTED lidocaine (LIDODERM) 5 % Apply 2 Patches as directed every 24 hours. Remove after 12 hours. Location: Lower back and knees. triamcinolone acetonide (KENALOG) 0.1 % cream Apply 1 application to affected area three times daily. As needed for rash. Apply sparingly to area for rash/itching. diphenoxylate-atropine (LOMOTIL) 2.5-0.025 mg per tablet Take 1 tablet by mouth twice daily as needed for Diarrhea. gabapentin (NEURONTIN) 400 mg capsule Take 1-2 capsules by mouth three times daily. meclizine (ANTIVERT) 25 mg tab Take 1 tablet by mouth every 6 hours as needed (dizziness). fluticasone (FLONASE) 50 mcg/actuation nasal spray USE 1 SPRAY IN EACH NOSTRIL DAILY COMPOUNDED PRESCRIPTION methylcobalamin Cholecalciferol, Vitamin D3, 5,000 unit cap Take 1 capsule by mouth once daily. (took 2 daily since April appt) Methylsulfonylmethane (MSM) 1,000 mg tab Take 1 tablet by mouth once daily. Garlic tab Take 1 tablet by mouth. CINNAMON BARK (CINNAMON ORAL) Take by mouth. Lggcpjpbhcj-QKN-Pbikvqkee-VitC cap Take by mouth. loratadine (CLARITIN) 10 mg tablet Take 10 mg by mouth once daily. BOSWELLIA RONDA EXTRACT (BOSWELLIA RONDA XT, BULK, MISC) 800 mg once daily. Cyanocobalamin-Cobamamide 5,000-100 mcg lozg Dissolve 5,100 mcg under the tongue once daily. multivitamin (DAILY MULTI-VITAMIN) tablet Take 1 tablet by mouth once daily. VITAMIN E, DL,TOCOPHERYL ACET, (VITAMIN E, DL, ACETATE,) 400 unit cap Take 400 Units by mouth once daily. magnesium oxide (MAG-OX) 400 mg tablet Take 1 tablet by mouth once daily. zoledronic acid (RECLAST) 5 mg/100 mL pgbk PREMIX piggyback Inject 100 mL intravenously one time only for 1 dose. CPAP Biotin 2,500 mcg cap 5,000 mcg. Patient takes 5,000 mcg daily No current facility-administered medications for this visit. Allergies: Oxycodone; Lyrica [Pregabalin] ROS: General (negative for fatigue, malaise, weight loss/gain) HEENT (negative for headache, earache, recent vision changes, sinus pain, sore throat) Respiratory (no recent shortness of breath, hemoptysis) CV (negative for chest tightness, palpitations) Musculoskeletal (see HPI) Psych (no depression, anxiety) This note was partially generated using Aubrey voice recognition system, and there may be some incorrect words, spellings, and punctuation that were not noted in checking the note before saving. Demetria Angulo PA-C PROGRESS Observed: 10/09/2017 Status: COMPLETED Source: [place] 2:10 PM [facility] REPOSITORY HNO ID: [id number] Author: Vibha Veliz Ma Service: (none) Author Type: (none) Type: Progress Notes Filed: 10/09/2017 2:28 PM Note Text: Patient presents with: Established Patient: 4 months post visit right hip pain - wants injection AMB ROOMING INTAKE FLOWSHEET DATA Risk Screening Do you have concerns about personal safety or safety in the home?: No Pain Pain Score: 3/10 Pain Location: Hip-Right Description: Aching Duration Amount of Time: (Ongoing) Frequency: Intermittent (Depends on activity) Intervention: Medication Patient states injection helped until a couple of weeks ago. Would like another injection today. Taking Celebrex for her pain and helps. CNOV Observed: 10/09/2017 Status: COMPLETED Source: [place] 2:00 PM [facility] REPOSITORY Office Visit (OLVIN) NELLA CARLSON ([id number]) 1945 F Date Time Provider Department 10/09/17 2:00 PM DEMETRIA ANGULO (PA) During your visit today, we recorded the following information about you: Vibha Veliz Ma 10/09/2017 2:28 PM Signed Patient presents with: Established Patient: 4 months post visit right hip pain - wants injection AMB ROOMING INTAKE FLOWSHEET DATA Risk Screening Do you have concerns about personal safety or safety in the home?: No Pain Pain Score: 3/10 Pain Location: Hip-Right Description: Aching Duration Amount of Time: (Ongoing) Frequency: Intermittent (Depends on activity) Intervention: Medication Patient states injection helped until a couple of weeks ago. Would like another injection today. Taking Celebrex for her pain and helps. Demetria Angulo PA-C 10/09/2017 2:28 PM Signed Demetria Angulo PA-C Department of Orthopaedics Orthopaedics [address] [place] [address] Dept: [phone] Dept October 09, 2017 CHIEF COMPLAINT: Established Patient (4 months post visit right hip pain - wants injection) Ms. Nella Carlson is a 71 year old female, she presents with right greater trochanteric bursitis. Last corticosteroid injection was in May 2017, she notes pain has returned in the past week. Pain today is 3/10 aching that is worse with climbing stairs. She would like repeat injection. ASSESSMENT: M70.61 Greater trochanteric bursitis of right hip (primary encounter diagnosis) M25.551 Pain in right hip PLAN: we will proceed with right greater trochanter bursa corticosteroid injection today. Patient was encouraged to work on gentle stretching exercises. Ms. Nella Carlson was advised as to contrast therapies and/or to take analgesics/anti-inflammatories as needed and all contraindications were reviewed. OBJECTIVE: Ms. Nella Carlson is a pleasant 71 year old in no apparent distress. Gen:There were no vitals taken for this visit. nl development, obese, no deformities ENT: Normocephalic, normal hearing, moist mucosa CV: Pulses:DP/PT= 2+ and symmetric, capillary refill ANDlt; 2 secs, no peripheral edema/varicosities Skin: no rash, bruising or lesions. Good turgor. Psych: cooperative and appropriate, alert and oriented x 3, good mood and affect. Musculoskeletal: Right: ROM: Extension: Normal Flexion: 100 degrees Internal Rotation: 30 degrees External Rotation: 30 degrees Abduction: 30 degrees Adduction: 15 degrees Strength: Abduction 4/5 and Flexion 4/5 Palpation: Tenderness over the right greater trochanteric bursa. Log roll: painful. Straight leg raise: Reproduces midline lumbar back pain Neurovascular Status: Sensation Intact and Moves foot and ankle up ANDamp; down ? ? ? Procedure note The risk, benefits and alternatives of injection and no injection therapy were discussed. The patient consented for an injection. Time out was conducted. The injection site was prepped with a Chlorhexadine swab. The right great greater trochanteric bursa was injected with a 25 gauge needle with 0.5 cc (6 mg) Celestone, 3 cc Lidocaine 1% Plain. The injection site was then dressed with a bandaid. The patient tolerated the injection well. The patient was instructed to call the office if any adverse local effects occurred or any if any questions or concerns arise. Demetria Angulo PA-C Imaging: deferred today Supporting Subjective Information Below: Past Surgical History: PAST SURGICAL HISTORY Procedure Laterality Date - COLONOSCOP W/ OR W/O [facility] SPEC 07/30/15 Colonoscopy (MAC) - COLONOSCOPY multiple - EGD - PAST SURGICAL HISTORY OF Left shoulder arthroscopy - PAST SURGICAL HISTORY OF Partial hysterectomy - PAST SURGICAL HISTORY OF 03/2015 knee replacement left - REMOVE TONSILS/ADENOIDS,13+ Y/O 1984 T/A (over age 13 years) - ROTATOR CUFF REPAIR 2005 Right shoulder - TOTAL HIP REPLACEMENT 2010 Hip replacement, total sondra Medications: Current Outpatient Prescriptions: DEXILANT 60 mg CpDM TAKE 1 CAPSULE DAILY olopatadine (PATANOL) 0.1 % ophthalmic solution Use 1 Drop in both eyes twice daily. VOLTAREN 1 % topical gel APPLY 2 GRAMS TO AFFECTED AREA FOUR TIMES A DAY celecoxib (CELEBREX) 100 mg capsule TAKE 1 CAPSULE DAILY DIRECTED Ipratropium [place] (ATROVENT) 0.03 % nasal spray USE 1 TO 2 SPRAYS NASALLY EVERY 12 HOURS DIRECTED lidocaine (LIDODERM) 5 % Apply 2 Patches as directed every 24 hours. Remove after 12 hours. Location: Lower back and knees. triamcinolone acetonide (KENALOG) 0.1 % cream Apply 1 application to affected area three times daily. As needed for rash. Apply sparingly to area for rash/itching. diphenoxylate-atropine (LOMOTIL) 2.5-0.025 mg per tablet Take 1 tablet by mouth twice daily as needed for Diarrhea. gabapentin (NEURONTIN) 400 mg capsule Take 1-2 capsules by mouth three times daily. meclizine (ANTIVERT) 25 mg tab Take 1 tablet by mouth every 6 hours as needed (dizziness). fluticasone (FLONASE) 50 mcg/actuation nasal spray USE 1 SPRAY IN EACH NOSTRIL DAILY COMPOUNDED PRESCRIPTION methylcobalamin Cholecalciferol, Vitamin D3, 5,000 unit cap Take 1 capsule by mouth once daily. (took 2 daily since April appt) Methylsulfonylmethane (MSM) 1,000 mg tab Take 1 tablet by mouth once daily. Garlic tab Take 1 tablet by mouth. CINNAMON BARK (CINNAMON ORAL) Take by mouth. Ltrnoxezkkv-NFQ-Kxowwhkuk-VitC cap Take by mouth. loratadine (CLARITIN) 10 mg tablet Take 10 mg by mouth once daily. BOSWELLIA RONDA EXTRACT (BOSWELLIA RONDA XT, BULK, [facility]) 800 mg once daily. Cyanocobalamin-Cobamamide 5,000-100 mcg lozg Dissolve 5,100 mcg under the tongue once daily. multivitamin (DAILY MULTI-VITAMIN) tablet Take 1 tablet by mouth once daily. VITAMIN E, DL,TOCOPHERYL ACET, (VITAMIN E, DL, ACETATE,) 400 unit cap Take 400 Units by mouth once daily. magnesium oxide (MAG-OX) 400 mg tablet Take 1 tablet by mouth once daily. zoledronic acid (RECLAST) 5 mg/100 mL pgbk PREMIX piggyback Inject 100 mL intravenously one time only for 1 dose. CPAP Biotin 2,500 mcg cap 5,000 mcg. Patient takes 5,000 mcg daily No current facility-administered medications for this visit. Allergies: Oxycodone; Lyrica [Pregabalin] ROS: General (negative for fatigue, malaise, weight loss/gain) HEENT (negative for headache, earache, recent vision changes, sinus pain, sore throat) Respiratory (no recent shortness of breath, hemoptysis) CV (negative for chest tightness, palpitations) Musculoskeletal (see HPI) Psych (no depression, anxiety) This note was partially generated using Aubrey voice recognition system, and there may be some incorrect words, spellings, and punctuation that were not noted in checking the note before saving. Demetria Angulo PA-C Referring Provider: SELF [[id number]] Allergies As of Date: 10/09/2017 Noted Allergy Reaction OXYCODONE 03/23/2015 8 - GI Upset LYRICA (PREGABALIN) 10/29/2014 8 - GI Upset Date Reviewed: 10/09/2017 Reviewed by: Demetria Angulo (Pa) - Fully Assessed Reason for Visit: Established Patient [175] Cmt: 4 months post visit right hip pain - wants injection Reason For Visit History Recorded Primary Visit Diagnosis:Greater trochanteric bursitis of right hip [M70.61] Other Visit Diagnosis:Pain in right hip [M25.551] Prescriptions as of 10/09/2017 Sig: DEXILANT 60 MG CAPSULE, DELAY* TAKE 1 CAPSULE DAILY OLOPATADINE 0.1 % EYE DROPS Use 1 Drop in both eyes twice* VOLTAREN 1 % TOPICAL GEL APPLY 2 GRAMS TO AFFECTED ARE* CELECOXIB 100 MG CAPSULE TAKE 1 CAPSULE DAILY DIREC* IPRATROPIUM BROMIDE 0.03 % NA* USE 1 TO 2 SPRAYS NASALLY DAPHNIE* LIDOCAINE 5 % TOPICAL PATCH Apply 2 Patches as directed e* TRIAMCINOLONE ACETONIDE 0.1 %* Apply 1 application to affect* DIPHENOXYLATE-ATROPINE 2.5 MG* Take 1 tablet by mouth twice * GABAPENTIN 400 MG CAPSULE Take 1-2 capsules by mouth th* MECLIZINE 25 MG TABLET Take 1 tablet by mouth every * FLUTICASONE 50 MCG/ACTUATION * USE 1 SPRAY IN EACH NOSTRIL D* COMPOUNDED PRESCRIPTION methylcobalamin CHOLECALCIFEROL (VITAMIN D3) * Take 1 capsule by mouth once * METHYLSULFONYLMETHANE 1,000 M* Take 1 tablet by mouth once d* GARLIC TABLET Take 1 tablet by mouth. CINNAMON ORAL Take by mouth. ZYNMOQQXMGB-PAA-PLHJKUUIH-VIT* Take by mouth. LORATADINE 10 MG TABLET Take 10 mg by mouth once heather* BOSWELLIA RONDA XT (BULK) M* 800 mg once daily. CYANOCOBALAMIN (B12)-COBAMAMI* Dissolve 5,100 mcg under the * MULTIVITAMIN TABLET Take 1 tablet by mouth once d* VITAMIN E (DL, ACETATE) 400 U* Take 400 Units by mouth once * MAGNESIUM OXIDE 400 MG TABLET Take 1 tablet by mouth once d* ZOLEDRONIC ACID 5 MG/100 ML I* Inject 100 mL intravenously o* CPAP BIOTIN 2,500 MCG CAPSULE 5,000 mcg. Patient takes 5,00* Problem List As Of Date 10/09/2017 Noted Resolved Ovarian cyst, follicular [N83.00] INVALID FOR*11/10/2016 More... Plantar fasciitis, bilateral [M72.2] INVALID FOR* Osteoporosis [M81.0] Vitamin D deficiency [E55.9] Diffuse myofascial pain syndrome [M79.1] INVALID FOR* Chronic pain [G89.29] INVALID FOR* Generalized OA [M15.9] INVALID FOR* Arthritis of knee [M17.10] INVALID FOR*02/27/2017 Pain in joint, pelvic region and thigh [M25.559]INVALID FOR* DONITA on CPAP [G47.33, Z99.89] INVALID FOR*02/27/2017 GERD (gastroesophageal reflux disease) [K21.9] INVALID FOR* Arthropathy, lower leg [NAV5728] INVALID FOR*03/23/2015 Hypercholesteremia [E78.00] Rectal bleeding [K62.5] Status post total left knee replacement [Z96.65*INVALID FOR*02/27/2017 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 Encounter Status:Closed by DEMETRIA ANGULO PA-C on 10/09/17 COMP METABOLIC PANEL Collected: 09/12/2017 Status: F Source: [place] 1:00 PM [facility] REPOSITORY TYPE CODE TESTS RESULT OUT OF REFERENCE UNITS RANGE LAB TP 6.3-8.0 g/dL Protein, Total 7.2 LAB ALB 3.9-4.9 g/dL Albumin 4.2 LAB CA 8.5-10.2 mg/dL Calcium, Total 9.5 LAB TBIL 0.2-1.3 mg/dL Bilirubin, Total 0.4 LAB ALKP 32-117 U/L Alkaline Phosphatase 58 LAB AST 13-35 U/L AST 25 LAB GLU 74-99 mg/dL Glucose High 117 Result Comment: The [place] Diabetes Association (ADA) provides guidance for cutoff values for fasting glucose and random glucose. The ADA defines fasting as no caloric intake for at least 8 hours. Fas ting plasma glucose results between 100 to 125 mg/dL indicate increased risk for diabetes (prediabetes). Fasting plasma glucose results greater than or equal to 126 mg/dL meet the criteria for diagnosis of diabetes. In the absence of unequivocal hyperglycemia, results should be confirmed by repeat testing. In a patient with classic symptoms of hyperglycemia or hyperglycemic crisis, random plasma glucose results greater than or equal to 200 mg/dL meet the criteria for diagnosis of diabetes. Reference: Standards of Medical Care in Diabetes 2016, [place] Diabetes Association. Diabetes Care. 2016.39(Suppl 1). LAB BUN 7-21 mg/dL BUN 21 LAB CRET 0.58-0.96 mg/dL Creatinine 0.95 LAB NA 136-144 mmol/L Sodium 140 LAB K 3.7-5.1 mmol/L Potassium 4.0 LAB CL 97-105 mmol/L Chloride 103 LAB CO2 22-30 mmol/L CO2 22 LAB AGAP 9-18 mmol/L Anion Gap 15 LAB ALT 7-38 U/L ALT 20 LAB GFRAA eGFR- Amer. >60 LAB GFRNAA . eGFR-All Other Races 58 Result Comment: eGFR (Estimated GFR) Units of measure: mL/min/1.73 meters squared eGFR is derived from the reexpressed MDRD Study equation using the following parameters: serum creatinine, age, gender and race. The creatinine assay has been calibrated to be traceable to [employer]. An eGFR <60 mL/min/1.73m2 for >3 months is consistent with chronic kidney disease. Refer to KDOQI guidelines for clinical interpretation. In patients with unstable renal function, e.g. those with acute kidney injury, the eGFR may not accurately reflect actual GFR. Performed By: #### CMP, MG1, CBC, VITD #### [facility] [address] [place], [place] [address] MAGNESIUM Collected: 09/12/2017 Status: F Source: [place] 1:00 [facility] REPOSITORY TYPE CODE TESTS RESULT OUT OF REFERENCE UNITS RANGE LAB MG 1.7-2.3 mg/dL Magnesium 1.9 Performed By: #### CMP, MG1, CBC, VITD #### [facility] [address] [place], [place] [address] CBC Collected: 09/12/2017 Status: F Source: [place] 1:00 [facility] REPOSITORY TYPE CODE TESTS RESULT OUT OF REFERENCE UNITS RANGE LAB WBC 3.70-11.00 k/uL WBC 8.69 LAB RBC 3.90-5.20 m/uL RBC 4.91 LAB HGB 11.5-15.5 g/dL Hemoglobin 14.8 LAB HCT 36.0-46.0 % High Hematocrit 46.6 LAB MCV 80.0-100.0 fL MCV 94.9 LAB MCH 26.0-34.0 pG MCH 30.1 LAB MCHC 30.5-36.0 g/dL MCHC 31.8 LAB RDWCV 11.5-15.0 % RDW-CV 13.9 LAB PLTCT 150-400 k/uL Platelet Count 372 LAB MPV 9.0-12.7 fL MPV 9.5 LAB ABSNUC <0.01 k/uL Absolute nRBC <0.01 Performed By: #### CMP, MG1, CBC, VITD #### [facility] [address] [place], [place] [address] VITAMIN D 25 HYDROXY Collected: 09/12/2017 Status: F Source: [place] 1:00 PM [facility] REPOSITORY TYPE CODE TESTS RESULT OUT OF REFERENCE UNITS RANGE LAB VITD 31.0-80.0 ng/mL Vitamin D 25 37.4 Hydroxy Result Comment: Classification of 25 [place] Vitamin D status: Insufficiency/Moderate Deficiency: < or = 30 ng/mL Sufficiency/Optimal Levels: 31 to 80 ng/mL Toxicity: > 100 ng/mL Test performed by chemiluminescent immunoassay. Performed By: #### CMP, MG1, CBC, VITD #### [facility] [address] [place], [place] [address] PROGRESS Observed: 09/04/2017 Status: COMPLETED Source: [place] 2:25 PM [facility] REPOSITORY HNO ID: [id number] Author: Scott Dempsey (Employee Relations Specialist) DESI Tripp.SERVICE ENGINE REPAIRER Service: (none) Author Type: Nurse Practitioner Type: Progress Notes Filed: 09/04/2017 2:39 PM Note Text: Subjective HPI HPI Nella Carlson is a 71 year old female who presents today for CC of sinus pressure, congestion ,drainage down the back of her throat and coughing because of the drainage This started 5 days she has tried mucinex ACTIVE PROBLEM LIST Plantar Fasciitis, Bilateral Osteoporosis Vitamin D Deficiency Diffuse Myofascial Pain Syndrome Chronic Pain Generalized Oa Pain in Joint, Pelvic Region and Thigh Gerd (Gastroesophageal Reflux Disease) Hypercholesteremia Rectal Bleeding Status Post Total Replacement of Left Hip Pain in Right Hip Primary Osteoarthritis of Right Knee Donita (Obstructive Sleep Apnea) Arthritis BP 110/74 Pulse 80 Temp 37.8 ?C (100 ?F) Resp 20 Wt 73 kg (161 lb) BMI 32.52 kg/m2 ALLERGIES Allergen Reactions - Oxycodone GI Upset - Lyrica [Pregabalin] GI Upset Current Outpatient Prescriptions: olopatadine (PATANOL) 0.1 % ophthalmic solution Use 1 Drop in both eyes twice daily. Disp: 3 Bottle Rfl: 3 VOLTAREN 1 % topical gel APPLY 2 GRAMS TO AFFECTED AREA FOUR TIMES A DAY Disp: 200 g Rfl: 3 celecoxib (CELEBREX) 100 mg capsule TAKE 1 CAPSULE DAILY DIRECTED Disp: 90 capsule Rfl: 1 lidocaine (LIDODERM) 5 % Apply 2 Patches as directed every 24 hours. Remove after 12 hours. Location: Lower back and knees. Disp: 180 Patch Rfl: 3 triamcinolone acetonide (KENALOG) 0.1 % cream Apply 1 application to affected area three times daily. As needed for rash. Apply sparingly to area for rash/itching. Disp: 45 g Rfl: 0 diphenoxylate-atropine (LOMOTIL) 2.5-0.025 mg per tablet Take 1 tablet by mouth twice daily as needed for Diarrhea. Disp: 90 tablet Rfl: 3 gabapentin (NEURONTIN) 400 mg capsule Take 1-2 capsules by mouth three times daily. Disp: 540 capsule Rfl: 3 meclizine (ANTIVERT) 25 mg tab Take 1 tablet by mouth every 6 hours as needed (dizziness). Disp: 15 tablet Rfl: 0 fluticasone (FLONASE) 50 mcg/actuation nasal spray USE 1 SPRAY IN EACH NOSTRIL DAILY Disp: 48 g Rfl: 3 COMPOUNDED PRESCRIPTION methylcobalamin Disp: Rfl: Cholecalciferol, Vitamin D3, 5,000 unit cap Take 1 capsule by mouth once daily. (took 2 daily since April app) Disp: Rfl: Methylsulfonylmethane (MSM) 1,000 mg tab Take 1 tablet by mouth once daily. Disp: Rfl: 0 Garlic tab Take 1 tablet by mouth. Disp: Rfl: CINNAMON BARK (CINNAMON ORAL) Take by mouth. Disp: Rfl: Xngwckylktj-FXF-Nihozzhif-VitC cap Take by mouth. Disp: Rfl: loratadine (CLARITIN) 10 mg tablet Take 10 mg by mouth once daily. Disp: Rfl: BOSWELLIA RONDA EXTRACT (BOSWELLIA RONDA XT, BULK, MISC) 800 mg once daily. Disp: Rfl: multivitamin (DAILY MULTI-VITAMIN) tablet Take 1 tablet by mouth once daily. Disp: Rfl: 0 VITAMIN E, DL,TOCOPHERYL ACET, (VITAMIN E, DL, ACETATE,) 400 unit cap Take 400 Units by mouth once daily. Disp: Rfl: 0 magnesium oxide (MAG-OX) 400 mg tablet Take 1 tablet by mouth once daily. Disp: Rfl: 0 Biotin 2,500 mcg cap 5,000 mcg. Patient takes 5,000 mcg daily Disp: Rfl: 0 Ipratropium [place] (ATROVENT) 0.03 % nasal spray USE 1 TO 2 SPRAYS NASALLY EVERY 12 HOURS DIRECTED Disp: 90 mL Rfl: 0 DEXILANT 60 mg CpDM TAKE 1 CAPSULE ONCE DAILY Disp: 90 capsule Rfl: 3 CPAP Disp: Rfl: Cyanocobalamin-Cobamamide 5,000-100 mcg lozg Dissolve 5,100 mcg under the tongue once daily. Disp: Rfl: No current facility-administered medications for this visit. Review of Systems Constitutional: Positive for fever. Negative for chills, diaphoresis and malaise/fatigue. HENT: Positive for congestion and sinus pain. Negative for ear pain and sore throat. Respiratory: Positive for cough. Negative for shortness of breath and wheezing. Gastrointestinal: Negative for abdominal pain, diarrhea, nausea and vomiting. Musculoskeletal: Negative for joint pain and myalgias. Skin: Negative for itching and rash. Neurological: Negative for weakness and headaches. Objective Physical Exam Constitutional: She is oriented to person, place, and time and well-developed, well-nourished, and in no distress. HENT: Head: Normocephalic and atraumatic. Right Ear: Tympanic membrane and ear canal normal. Left Ear: Tympanic membrane and ear canal normal. Nose: Mucosal edema (mild) and rhinorrhea (clear) present. Right sinus exhibits no maxillary sinus tenderness and no frontal sinus tenderness. Left sinus exhibits no maxillary sinus tenderness and no frontal sinus tenderness. Mouth/Throat: Uvula is midline and mucous membranes are normal. Normal dentition. Posterior oropharyngeal erythema present. No oropharyngeal exudate or tonsillar abscesses. Eyes: Conjunctivae and EOM are normal. Pupils are equal, round, and reactive to light. Neck: Normal range of motion. Neck supple. Cardiovascular: Normal rate, regular rhythm and normal heart sounds. Pulmonary/Chest: Effort normal and breath sounds normal. No respiratory distress. Cough present during exam Lymphadenopathy: Head (right side): No submental, no submandibular, no tonsillar, no preauricular, no posterior auricular and no occipital adenopathy present. Head (left side): No submental, no submandibular, no tonsillar, no preauricular, no posterior auricular and no occipital adenopathy present. She has no cervical adenopathy. Neurological: She is alert and oriented to person, place, and time. Gait normal. Skin: Skin is warm and dry. Psychiatric: Affect normal. Nursing note and vitals reviewed. ASSESSMENT/PLAN: 1. Upper respiratory tract infection, unspecified type - ICD9: 465.9, ICD10: J06.9 - Discussed viral etiology and rationale for treatment. - Symptomatic treatment with prn analgesia - Supportive care with fluids and rest - Follow up in one week if symptoms persist or sooner if worsening of symptoms - AMOXICILLIN 875 MG TABLET, encouraged to hold off on starting until 7 days of symptoms 2. Cough - ICD9: 786.2, ICD10: R05 - do not take any other OTC cough medications or decongestants with this medication - BENZONATATE 100 MG CAPSULE Scott Tripp APRN.CNP CNOV Observed: 09/04/2017 Status: COMPLETED Source: [place] 2:00 PM [facility] REPOSITORY Office Visit (WSTR) NELLA CARLSON ([id number]) 1945 F Date Time Provider Department 09/04/17 2:00 PM [facility] TRIPP[facility] During your visit today, we recorded the following information about you: Temperature Pulse Respiration Blood pressure 100 degrees 80/minute 20/minute 110/74 Weight 73 kg Scott Tripp APRN.CNP, APRN.CNP 09/04/2017 2:39 PM Signed Subjective HPI HPI Nella Carlson is a 71 year old female who presents today for CC of sinus pressure, congestion ,drainage down the back of her throat and coughing because of the drainage This started 5 days she has tried mucinex ACTIVE PROBLEM LIST Plantar Fasciitis, Bilateral Osteoporosis Vitamin D Deficiency Diffuse Myofascial Pain Syndrome Chronic Pain Generalized Oa Pain in Joint, Pelvic Region and Thigh Gerd (Gastroesophageal Reflux Disease) Hypercholesteremia Rectal Bleeding Status Post Total Replacement of Left Hip Pain in Right Hip Primary Osteoarthritis of Right Knee Donita (Obstructive Sleep Apnea) Arthritis BP 110/74 Pulse 80 Temp 37.8 ?C (100 ?F) Resp 20 Wt 73 kg (161 lb) BMI 32.52 kg/m2 ALLERGIES Allergen Reactions - Oxycodone GI Upset - Lyrica [Pregabalin] GI Upset Current Outpatient Prescriptions: olopatadine (PATANOL) 0.1 % ophthalmic solution Use 1 Drop in both eyes twice daily. Disp: 3 Bottle Rfl: 3 VOLTAREN 1 % topical gel APPLY 2 GRAMS TO AFFECTED AREA FOUR TIMES A DAY Disp: 200 g Rfl: 3 celecoxib (CELEBREX) 100 mg capsule TAKE 1 CAPSULE DAILY DIRECTED Disp: 90 capsule Rfl: 1 lidocaine (LIDODERM) 5 % Apply 2 Patches as directed every 24 hours. Remove after 12 hours. Location: Lower back and knees. Disp: 180 Patch Rfl: 3 triamcinolone acetonide (KENALOG) 0.1 % cream Apply 1 application to affected area three times daily. As needed for rash. Apply sparingly to area for rash/itching. Disp: 45 g Rfl: 0 diphenoxylate-atropine (LOMOTIL) 2.5-0.025 mg per tablet Take 1 tablet by mouth twice daily as needed for Diarrhea. Disp: 90 tablet Rfl: 3 gabapentin (NEURONTIN) 400 mg capsule Take 1-2 capsules by mouth three times daily. Disp: 540 capsule Rfl: 3 meclizine (ANTIVERT) 25 mg tab Take 1 tablet by mouth every 6 hours as needed (dizziness). Disp: 15 tablet Rfl: 0 fluticasone (FLONASE) 50 mcg/actuation nasal spray USE 1 SPRAY IN EACH NOSTRIL DAILY Disp: 48 g Rfl: 3 COMPOUNDED PRESCRIPTION methylcobalamin Disp: Rfl: Cholecalciferol, Vitamin D3, 5,000 unit cap Take 1 capsule by mouth once daily. (took 2 daily since April appt) Disp: Rfl: Methylsulfonylmethane (MSM) 1,000 mg tab Take 1 tablet by mouth once daily. Disp: Rfl: 0 Garlic tab Take 1 tablet by mouth. Disp: Rfl: CINNAMON BARK (CINNAMON ORAL) Take by mouth. Disp: Rfl: Mgtryvfxfcu-LHF-Eibqvyxkd-VitC cap Take by mouth. Disp: Rfl: loratadine (CLARITIN) 10 mg tablet Take 10 mg by mouth once daily. Disp: Rfl: BOSWELLIA RONDA EXTRACT (BOSWELLIA RONDA XT, BULK, [employer]) 800 mg once daily. Disp: Rfl: multivitamin (DAILY MULTI-VITAMIN) tablet Take 1 tablet by mouth once daily. Disp: Rfl: 0 VITAMIN E, DL,TOCOPHERYL ACET, (VITAMIN E, DL, ACETATE,) 400 unit cap Take 400 Units by mouth once daily. Disp: Rfl: 0 magnesium oxide (MAG-OX) 400 mg tablet Take 1 tablet by mouth once daily. Disp: Rfl: 0 Biotin 2,500 mcg cap 5,000 mcg. Patient takes 5,000 mcg daily Disp: Rfl: 0 Ipratropium [place] (ATROVENT) 0.03 % nasal spray USE 1 TO 2 SPRAYS NASALLY EVERY 12 HOURS DIRECTED Disp: 90 mL Rfl: 0 DEXILANT 60 mg CpDM TAKE 1 CAPSULE ONCE DAILY Disp: 90 capsule Rfl: 3 CPAP Disp: Rfl: Cyanocobalamin-Cobamamide 5,000-100 mcg lozg Dissolve 5,100 mcg under the tongue once daily. Disp: Rfl: No current facility-administered medications for this visit. Review of Systems Constitutional: Positive for fever. Negative for chills, diaphoresis and malaise/fatigue. HENT: Positive for congestion and sinus pain. Negative for ear pain and sore throat. Respiratory: Positive for cough. Negative for shortness of breath and wheezing. Gastrointestinal: Negative for abdominal pain, diarrhea, nausea and vomiting. Musculoskeletal: Negative for joint pain and myalgias. Skin: Negative for itching and rash. Neurological: Negative for weakness and headaches. Objective Physical Exam Constitutional: She is oriented to person, place, and time and well-developed, well-nourished, and in no distress. HENT: Head: Normocephalic and atraumatic. Right Ear: Tympanic membrane and ear canal normal. Left Ear: Tympanic membrane and ear canal normal. Nose: Mucosal edema (mild) and rhinorrhea (clear) present. Right sinus exhibits no maxillary sinus tenderness and no frontal sinus tenderness. Left sinus exhibits no maxillary sinus tenderness and no frontal sinus tenderness. Mouth/Throat: Uvula is midline and mucous membranes are normal. Normal dentition. Posterior oropharyngeal erythema present. No oropharyngeal exudate or tonsillar abscesses. Eyes: Conjunctivae and EOM are normal. Pupils are equal, round, and reactive to light. Neck: Normal range of motion. Neck supple. Cardiovascular: Normal rate, regular rhythm and normal heart sounds. Pulmonary/Chest: Effort normal and breath sounds normal. No respiratory distress. Cough present during exam Lymphadenopathy: Head (right side): No submental, no submandibular, no tonsillar, no preauricular, no posterior auricular and no occipital adenopathy present. Head (left side): No submental, no submandibular, no tonsillar, no preauricular, no posterior auricular and no occipital adenopathy present. She has no cervical adenopathy. Neurological: She is alert and oriented to person, place, and time. Gait normal. Skin: Skin is warm and dry. Psychiatric: Affect normal. Nursing note and vitals reviewed. ASSESSMENT/PLAN: 1. Upper respiratory tract infection, unspecified type - ICD9: 465.9, ICD10: J06.9 - Discussed viral etiology and rationale for treatment. - Symptomatic treatment with prn analgesia - Supportive care with fluids and rest - Follow up in one week if symptoms persist or sooner if worsening of symptoms - AMOXICILLIN 875 MG TABLET, encouraged to hold off on starting until 7 days of symptoms 2. Cough - ICD9: 786.2, ICD10: R05 - do not take any other OTC cough medications or decongestants with this medication - BENZONATATE 100 MG CAPSULE ADAM Sharma APRN.CNP, APRN.CNP 09/04/2017 2:31 PM Signed ASSESSMENT/PLAN: 1. Upper respiratory tract infection, unspecified type - ICD9: 465.9, ICD10: J06.9 - Discussed viral etiology and rationale for treatment. - Symptomatic treatment with prn analgesia - Supportive care with fluids and rest - Follow up in one week if symptoms persist or sooner if worsening of symptoms - AMOXICILLIN 875 MG TABLET, encouraged to hold off on starting until 7 days of symptoms Referring Provider: SELF [200] Allergies As of Date: 09/04/2017 Noted Allergy Reaction OXYCODONE 03/23/2015 8 - GI Upset LYRICA (PREGABALIN) 10/29/2014 8 - GI Upset Date Reviewed: 09/04/2017 Reviewed by: Scott Galaviz) Goucher, SOIL CONSERVATION AIDE.SERVICE ENGINE REPAIRER - Fully Assessed Reason for Visit: Nasal Congestion [235] Cmt: AND post nasal drainage AND cough X4 days Primary Visit Diagnosis:Upper respiratory tract infection, unspecified type [J06.9] Other Visit Diagnosis:Cough [R05] Order(s):amoxicillin (AMOXIL) 875 mg tabletTake 1 tablet by mouth twice daily for 10 days.Disp: 20 tabletRfl: 0 benzonatate (TESSALON PERLE) 100 mg capsuleTake 2 capsules by mouth three times daily as needed for Cough for up to 7 days.Disp: 25 capsuleRfl: 0 Prescriptions as of 09/04/2017 Sig: OLOPATADINE 0.1 % EYE DROPS Use 1 Drop in both eyes twice* VOLTAREN 1 % TOPICAL GEL APPLY 2 GRAMS TO AFFECTED ARE* CELECOXIB 100 MG CAPSULE TAKE 1 CAPSULE DAILY DIREC* LIDOCAINE 5 % TOPICAL PATCH Apply 2 Patches as directed e* TRIAMCINOLONE ACETONIDE 0.1 %* Apply 1 application to affect* DIPHENOXYLATE-ATROPINE 2.5 MG* Take 1 tablet by mouth twice * GABAPENTIN 400 MG CAPSULE Take 1-2 capsules by mouth th* MECLIZINE 25 MG TABLET Take 1 tablet by mouth every * FLUTICASONE 50 MCG/ACTUATION * USE 1 SPRAY IN EACH NOSTRIL D* COMPOUNDED PRESCRIPTION methylcobalamin CHOLECALCIFEROL (VITAMIN D3) * Take 1 capsule by mouth once * METHYLSULFONYLMETHANE 1,000 M* Take 1 tablet by mouth once d* GARLIC TABLET Take 1 tablet by mouth. CINNAMON ORAL Take by mouth. [id number]* Take by mouth. LORATADINE 10 MG TABLET Take 10 mg by mouth once heather* BOSWELLIA RONDA XT (BULK) M* 800 mg once daily. MULTIVITAMIN TABLET Take 1 tablet by mouth once d* VITAMIN E (DL, ACETATE) 400 U* Take 400 Units by mouth once * MAGNESIUM OXIDE 400 MG TABLET Take 1 tablet by mouth once d* BIOTIN 2,500 MCG CAPSULE 5,000 mcg. Patient takes 5,00* AMOXICILLIN 875 MG TABLET Take 1 tablet by mouth twice * BENZONATATE 100 MG CAPSULE Take 2 capsules by mouth thre* IPRATROPIUM BROMIDE 0.03 % NA* USE 1 TO 2 SPRAYS NASALLY DAPHNIE* DEXILANT 60 MG CAPSULE, DELAY* TAKE 1 CAPSULE ONCE DAILY CPAP CYANOCOBALAMIN (B12)-COBAMAMI* Dissolve 5,100 mcg under the * Medication notes this encounter IPRATROPIUM BROMIDE 0.03 % NASAL SPRAY >> Yasmeen May LPN 09/04/2017 2:12 PM >> YASMEEN MAY LPN MonSep 04, 2017 2:12 PM Hasn't started yet Problem List As Of Date 09/04/2017 Noted Resolved Ovarian cyst, follicular [N83.00] INVALID FOR*11/10/2016 More... Plantar fasciitis, bilateral [M72.2] INVALID FOR* Osteoporosis [M81.0] Vitamin D deficiency [E55.9] Diffuse myofascial pain syndrome [M79.1] INVALID FOR* Chronic pain [G89.29] INVALID FOR* Generalized OA [M15.9] INVALID FOR* Arthritis of knee [M17.10] INVALID FOR*02/27/2017 Pain in joint, pelvic region and thigh [M25.559]INVALID FOR* DONITA on CPAP [G47.33, Z99.89] INVALID FOR*02/27/2017 GERD (gastroesophageal reflux disease) [K21.9] INVALID FOR* Arthropathy, lower leg [MKD6548] INVALID FOR*03/23/2015 Hypercholesteremia [E78.00] Rectal bleeding [K62.5] Status post total left knee replacement [Z96.65*INVALID FOR*02/27/2017 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 Other instructions from your clinician: ASSESSMENT/PLAN: 1. Upper respiratory tract infection, unspecified type - ICD9: 465.9, ICD10: J06.9 - Discussed viral etiology and rationale for treatment. - Symptomatic treatment with prn analgesia - Supportive care with fluids and rest - Follow up in one week if symptoms persist or sooner if worsening of symptoms - AMOXICILLIN 875 MG TABLET, encouraged to hold off on starting until 7 days of symptoms Prescriptions ordered this encounter Disp Refills Start End AMOXICILLIN 875 MG TABLET 20 t* 0 09/04/2017 09/14/2017 Route: ORAL Sig: Take 1 tablet by mouth twice daily for 10 days. BENZONATATE 100 MG CAPSULE 25 c* 0 09/04/2017 09/11/2017 Route: ORAL Sig: Take 2 capsules by mouth three times daily as needed for Cough for up to 7 days. Medications Discontinued During This Encounter meclizine (ANTIVERT) 25 mg tab 15 t* 0 07/18/2017 09/04/2017 Route: ORAL Sig: Take 1 tablet by mouth every 6 hours as needed. Disc: Erroneous entry Encounter Status:Closed by SCOTT TRIPP on 09/04/17 JUANJOSE Observed: 08/24/2017 Status: COMPLETED Source: [place] 12:00 AM [facility] RE[facility] NELLA CARLSON ([id number]) 1945 F Date Time Provider Department 08/24/17 MARIUSZ BHANDARI During your visit today, we recorded the following information about you: Treesita Prieto LPN 08/24/2017 3:23 PM Signed Patient called in checking to see what she needs to do regarding her bone density testing being low. She thought she would call back, had not heard anything. Please advise Teresita Bhandari MD 08/25/2017 8:18 AM Signed My apologies for the delay--took a while to get some info on re-treating for osteoporosis after the meds she has already been on. Looks like recommendations would be to resume oral bisphosphonate (like Fosamax or Boniva), but if she had trouble tolerating those meds, IV med Reclast would be offered. See if patient has a preference of oral meds if previously tolerated. Teresita Prieto LPN 08/25/2017 10:39 AM Signed Spoke with patient and she wants to speak with her sister and call back later on what she would like to do. Teresita Jossie Conner REMEDIAL TEACHER Allergies As of Date: 08/24/2017 Noted Allergy Reaction OXYCODONE 03/23/2015 8 - GI Upset LYRICA (PREGABALIN) 10/29/2014 8 - GI Upset Date Reviewed: 06/14/2017 Reviewed by: Iris Blount Ma - Fully Assessed Reason for Visit: Nurse Triage Call [185] Prescriptions as of 08/24/2017 Sig: OLOPATADINE 0.1 % EYE DROPS Use 1 Drop in both eyes twice* MECLIZINE 25 MG TABLET Take 1 tablet by mouth every * VOLTAREN 1 % TOPICAL GEL APPLY 2 GRAMS TO AFFECTED ARE* CELECOXIB 100 MG CAPSULE TAKE 1 CAPSULE DAILY DIREC* IPRATROPIUM BROMIDE 0.03 % NA* USE 1 TO 2 SPRAYS NASALLY DAPHNIE* LIDOCAINE 5 % TOPICAL PATCH Apply 2 Patches as directed e* TRIAMCINOLONE ACETONIDE 0.1 %* Apply 1 application to affect* DIPHENOXYLATE-ATROPINE 2.5 MG* Take 1 tablet by mouth twice * GABAPENTIN 400 MG CAPSULE Take 1-2 capsules by mouth th* MECLIZINE 25 MG TABLET Take 1 tablet by mouth every * FLUTICASONE 50 MCG/ACTUATION * USE 1 SPRAY IN EACH NOSTRIL D* COMPOUNDED PRESCRIPTION methylcobalamin CHOLECALCIFEROL (VITAMIN D3) * Take 1 capsule by mouth once * DEXILANT 60 MG CAPSULE, DELAY* TAKE 1 CAPSULE ONCE DAILY METHYLSULFONYLMETHANE 1,000 M* Take 1 tablet by mouth once d* GARLIC TABLET Take 1 tablet by mouth. CINNAMON ORAL Take by mouth. [id number]-VIT* Take by mouth. LORATADINE 10 MG TABLET Take 10 mg by mouth once heather* CPAP BOSWELLIA RONDA XT (BULK) M* 800 mg once daily. CYANOCOBALAMIN (B12)-COBAMAMI* Dissolve 5,100 mcg under the * X BEPOTASTINE BESILATE 1.5 % EY* Use in both eyes once daily. MULTIVITAMIN TABLET Take 1 tablet by mouth once d* VITAMIN E (DL, ACETATE) 400 U* Take 400 Units by mouth once * MAGNESIUM OXIDE 400 MG TABLET Take 1 tablet by mouth once d* BIOTIN 2,500 MCG CAPSULE 5,000 mcg. Patient takes 5,00* Problem List As Of Date 08/24/2017 Noted Resolved Ovarian cyst, follicular [N83.00] INVALID FOR*11/10/2016 More... 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 Encounter Status:Closed by TERESITA PRIETO LPN on 08/25/17 OBSOLETE Observed: 07/18/2017 Status: COMPLETED Source: [place] 12:00 AM [facility] REPOSITORY Refill ([facility]) NELLA CARLSON ([id number]) 1945 F Date Time Provider Department 07/18/17 MARIUSZ BHANDARI [facility] During your visit today, we recorded the following information about you: Rajwinder Andrea [facility] 07/18/2017 1:58 PM Signed Patient has been identified by name and date of : Yes Patient phones for refill(s): Pending Prescriptions Disp Refills MECLIZINE 25 MG TABLET 15 tablet 0 Sig: TAKE 1 TABLET EVERY 6 HOURS NEEDED FOR DIZZINESS TIN: Yes VOLTAREN 1 % TOPICAL GEL 200 g 3 Sig: APPLY 2 GRAMS TO AFFECTED AREA FOUR TIMES A DAY TIN: Yes Date of last office visit in primary care: 05/03/2017 Please advise. Thank you. Rajwinder Bhandari MD 07/18/2017 4:56 PM Signed The following approved medication requests have been transmitted electronically. Signed Prescriptions Disp Refills meclizine (ANTIVERT) 25 mg tab 15 tablet 0 Sig: Take 1 tablet by mouth every 6 hours as needed. TIN: No Authorizing Provider: MARIUSZ BHANDARI VOLTAREN 1 % topical gel 200 g 3 Sig: APPLY 2 GRAMS TO AFFECTED AREA FOUR TIMES A DAY TIN: No Authorizing Provider: MARIUSZ BHANDARI MD Allergies As of Date: 07/18/2017 Noted Allergy Reaction OXYCODONE 03/23/2015 8 - GI Upset LYRICA (PREGABALIN) 10/29/2014 8 - GI Upset Date Reviewed: 06/14/2017 Reviewed by: Iris Blount Ma - Fully Assessed Reason for Visit: Refill Request [94] Order(s):meclizine (ANTIVERT) 25 mg tabTake 1 tablet by mouth every 6 hours as needed.Disp: 15 tabletRfl: 0 VOLTAREN 1 % topical gelAPPLY 2 GRAMS TO AFFECTED AREA FOUR TIMES A DAYDisp: 200 gRfl: 3 Prescriptions as of 07/18/2017 Sig: MECLIZINE 25 MG TABLET Take 1 tablet by mouth every * VOLTAREN 1 % TOPICAL GEL APPLY 2 GRAMS TO AFFECTED ARE* CELECOXIB 100 MG CAPSULE TAKE 1 CAPSULE DAILY DIREC* IPRATROPIUM BROMIDE 0.03 % NA* USE 1 TO 2 SPRAYS NASALLY DAPHNIE* LIDOCAINE 5 % TOPICAL PATCH Apply 2 Patches as directed e* TRIAMCINOLONE ACETONIDE 0.1 %* Apply 1 application to affect* DIPHENOXYLATE-ATROPINE 2.5 MG* Take 1 tablet by mouth twice * GABAPENTIN 400 MG CAPSULE Take 1-2 capsules by mouth th* MECLIZINE 25 MG TABLET Take 1 tablet by mouth every * FLUTICASONE 50 MCG/ACTUATION * USE 1 SPRAY IN EACH NOSTRIL D* COMPOUNDED PRESCRIPTION methylcobalamin CHOLECALCIFEROL (VITAMIN D3) * Take 1 capsule by mouth once * DEXILANT 60 MG CAPSULE, DELAY* TAKE 1 CAPSULE ONCE DAILY METHYLSULFONYLMETHANE 1,000 M* Take 1 tablet by mouth once d* GARLIC TABLET Take 1 tablet by mouth. CINNAMON ORAL Take by mouth. [id number]-VIT* Take by mouth. LORATADINE 10 MG TABLET Take 10 mg by mouth once heather* CPAP BOSWELLIA RONDA XT (BULK) M* 800 mg once daily. CYANOCOBALAMIN (B12)-COBAMAMI* Dissolve 5,100 mcg under the * BEPOTASTINE BESILATE 1.5 % EY* Use in both eyes once daily. MULTIVITAMIN TABLET Take 1 tablet by mouth once d* VITAMIN E (DL, ACETATE) 400 U* Take 400 Units by mouth once * MAGNESIUM OXIDE 400 MG TABLET Take 1 tablet by mouth once d* BIOTIN 2,500 MCG CAPSULE 5,000 mcg. Patient takes 5,00* Problem List As Of Date 07/18/2017 Noted Resolved Ovarian cyst, follicular [N83.00] INVALID FOR*11/10/2016 More... Plantar fasciitis, bilateral [M72.2] INVALID FOR* Osteoporosis [M81.0] Vitamin D deficiency [E55.9] Diffuse myofascial pain syndrome [M79.1] INVALID FOR* Chronic pain [G89.29] INVALID FOR* Generalized OA [M15.9] INVALID FOR* Arthritis of knee [M17.10] INVALID FOR*02/27/2017 Pain in joint, pelvic region and thigh [M25.559]INVALID FOR* DONITA on CPAP [G47.33, Z99.89] INVALID FOR*02/27/2017 GERD (gastroesophageal reflux disease) [K21.9] INVALID FOR* Arthropathy, lower leg [QDP0650] INVALID FOR*03/23/2015 Hypercholesteremia [E78.00] Rectal bleeding [K62.5] Status post total left knee replacement [Z96.65*INVALID FOR*02/27/2017 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 Prescriptions ordered this encounter Disp Refills Start End MECLIZINE 25 MG TABLET 15 t* 0 07/18/2017 Route: ORAL Sig: Take 1 tablet by mouth every 6 hours as needed. VOLTAREN 1 % TOPICAL GEL 200 g 3 07/18/2017 Sig: APPLY 2 GRAMS TO AFFECTED AREA FOUR TIMES A DAY Medications Discontinued During This Encounter diclofenac sodium (VOLTAREN) 1 % top* 240 g 3 10/27/2016 07/18/2017 Route: TOPICAL Sig: Apply 2 g to affected area four times daily. Disc: Reason for discontinue is not on file. Encounter Status:Closed by AARON LARA on 07/18/17 ALLERGIES ALLERGIES DATE TYPE / CODE NAME / CODE REACTION SEVERITY SOURCE 07/09/2018 Drug oxycodone/[id number] Vomiting Unknown [place] Allergy/416 558(RXNORM) [facility] 840654([facility] ED CT) Repository 07/09/2018 Drug pregabalin/E59647 Vomiting Unknown [place] Allergy/416 0083(RXNORM) [facility] 821247([facility] ED CT) Repository 11/16/2017 Environ/420 SEASONAL OTHER: SEE C [facility] 399323(SN ALLERGIES [facility] [place] ED CT) Repository 03/23/2015 DRUG OXYCODONE GI UPSET [facility] INGREDI/419 [place] 215616([place] [facility] Repository ED CT) 10/29/2014 [facility]UG [facility] [place] 210569([place] [facility] Repository ED CT) 08/31/2014 Drug No Known Unknown [place] Allergy/416 Allergies/V112020 [facility] 400067([place] [place] [facility] ENCOUNTERS ENCOUNTERS ADMIT/DISCHARGE ACCOUNT ADMITTING ENCOUNTER LOCATION SOURCE NUMBER CLASS 07/09/2018/07/09/19 [id number] Emergency [place] [facility] ing:ED Repository 07/01/2018/07/01/19 [id number] Emergency [place] [facility] ing:ED Repository 05/18/2018/05/18/20 [id number] [address] [place] Repository 05/18/2018/06/04/20 [id number] Ambulatory [address] [place] Repository 05/14/2018/05/14/20 [id number] Ambulatory [address] [place] Repository 03/15/2018 [id number] Ambulatory [facility] ing:RAD Repository 03/12/2018/03/12/20 [id number] Ambulatory [address] [place] Repository 01/25/2018/02/17/20 [id number] Ambulatory [address] [place] Repository 01/22/2018 [id number] [facility] Repository 01/16/2018/01/17/20 [id number] Ambulatory [address] [place] Repository 01/16/2018/01/18/20 [id number] Ambulatory [address] [place] Repository 01/02/2018/01/04/20 [id number] Ambulatory [address] [place] Repository 12/07/2017/12/08/19 [id number] Ambulatory [address] [place] Repository 11/17/2017 [id number] Ambulatory [facility] ing:RAD Repository 11/16/2017/11/18/19 [id number] Ambulatory [address] [place] Repository 11/09/2017/12/07/19 [id number] Ambulatory [address] [place] Repository 11/08/2017/11/15/19 [id number] Ambulatory [address] [place] Repository 11/02/2017/12/02/19 [id number] Ambulatory [address] [place] Repository 10/30/2017 [id number] Ambulatory [facility] [place] Repository 10/09/2017/10/13/19 [id number] Ambulatory [address] [place] Repository 09/21/2017/09/23/19 [id number] Ambulatory [place] [facility] [place] Repository 09/12/2017/09/13/19 [id number] Ambulatory [address] [place] Repository 09/04/2017/09/06/19 [id number] Ambulatory [address] Repository PAYERS PAYERS ENCOUNTER GUARANTOR PAYER SUBSCRIBER SOURCE 07/09/2018 NELLA iWlder Primary NELLA Martinezoster [id number] Insurance:MEDICARE BENSONDOB: [facility] PART A [facility] [id number] Number[place] Repository [id number]: [phone] [id number] [phone] (HP) Date:2018-07-09 07/09/2018 Secondary NELLA L [place] Insurance:WPS BENSONDOB: [facility] [id number] Hospital Number: Repository [id number] Date:[id number] [address] [address]XU: 07/09/2018 Tertiary NOT GIVENUNK [place] Insurance:SELF PAY [facility] Number: Effective Repository Date:2018-07-09 07/01/2018 NELLA L Primary NELLA L [place] [id number] Insurance:MEDICARE BENSONDOB: Community [place] PART A [id number] [place] Number[facility] Repository [id number]: [phone] [id number] [phone] () Date:2018-07-01 07/01/2018 Secondary NELLA L [place] Insurance:WPS BENSONDOB: [facility] [id number] Hospital Number: Repository [id number] Date:[id number] [address] [address]KO: 07/01/2018 Tertiary NOT GIVENUNK [place] Insurance:SELF PAY [facility] Number: Effective Repository Date:2018-07-01 03/15/2018 NELLA L Primary NELLA L [place] [id number] Insurance:MEDICARE BENSONDOB: Community [place] PART A [id number] [place] Number[facility] Repository [id number]: [phone] [id number] [phone] (HP) Date:2018-03-15 03/15/2018 Secondary NELLA L [place] Insurance:WPS BENSONDOB: [facility] [id number] Hospital Number: Repository [id number] Date:[id number] [address] [address]NI: 03/15/2018 Tertiary NOT GIVENUNK [place] Insurance:SELF PAY [facility]: Effective Repository Date:2018-03-15 11/17/2017 Nella L Primary Nella L [place] [id number] Insurance:MEDICARE BensonDOB: Community [place] PART A BPolicy [id number] [place] Number: Repository [id number]: [phone] [id number] [phone] () Date:2017-11-14 11/17/2017 Secondary Nella L [place] Insurance:WPS BensonDOB[facility] [id number] Hospital Number: Repository [id number] Date:[id number] [address] [place] [address]PA: 11/17/2017 Tertiary NOT GIVENUNK [place] Insurance:SELF PAY [facility] Number: Effective Repository Date:2017-11-14
== END 2018-07-09 12:46 | disposition home or self-care (01) ==
PROVIDERS: Emergency Provider Emergency Medicine; Family Provider Internal Medicine; PCP Internal Medicine
DX: N39.0 Urinary tract infection, site not specified (principal); K44.9 Diaphragmatic hernia without obstruction or gangrene; M06.9 Rheumatoid arthritis, unspecified
CPT/HCPCS: 74176; 80048; 81001; 85025; 87086; 99284

== ENCOUNTER → 2019-08-08 14:36 | Outpatient (CLI) | payer MEDICARE, OTHER, SELFPAY ==
--- NOTE | 2019-08-08 14:47 | RAD_ITS ---
STUDY: X-RAY - LUMBAR SPINE REASON FOR EXAM: Female, 73 years old. CHRONIC LOW BACK PAIN; -- CONTRAST SEEN FROM [facility] GI STUDY 1 DAY AGO TECHNIQUE: 2 view(s) of the lumbar spine were obtained. COMPARISON: None FINDINGS: Normal lumbar lordosis. There is minimal anterolisthesis at L3/L4, grade 1 at L4/L5 and minimal at L5/S1 There is multilevel endplate spondylosis of the lumbar vertebrae. There is multi-level degenerative disc disease with multi-level disc space narrowing. The soft tissue structures are unremarkable. RAD/Lumbar Spine 2 or 3 Views IMPRESSION: Degenerative changes of the spine. Anterolisthesis. Electronically Signed: Dominique Armstrong MD at 8:26 EST Tel , Service support ,
== END ==
PROVIDERS: PCP Internal Medicine; Referring Provider Anesthesiology Pain Medicine; Visit Provider Anesthesiology Pain Medicine
DX: M54.9 Dorsalgia, unspecified (principal)
CPT/HCPCS: 72100

== ENCOUNTER → 2022-12-06 | Outpatient (CLI) | payer MEDICARE, OTHER, SELFPAY ==
--- NOTE | 2022-12-06 15:36 | MRI_ITS ---
INDICATION: DIZZINESS, SENSORNEURAL HEARING LOSS EXAMINATION: MRI - MR Brain WO/W Contrast TECHNIQUE: Multiplanar and multisequence MR images of the brain were obtained without and with gadolinium. IV Contrast Dosage and Agent: None. COMPARISON: CTA BrainMar 2014 FINDINGS: BRAIN PARENCHYMA: No MRI evidence of hemorrhage. No evidence of acute infarct. No intracranial mass or mass effect. There are several bilateral small white matter hyperintensities, distributed throughout the deep and subcortical white matter tracts of the cerebral hemispheres, may represent mild chronic white matter ischemic changes. Normal sella turcica, pituitary gland, infundibular stalk, optic chiasm and hypothalamus. Posterior fossa structures are unremarkable. INTERNAL AUDITORY CANALS: The internal auditory canals are well visualized and patent. No mass identified. CSF SPACES: Appropriate for age. No hydrocephalus. Basal cisterns are patent. VASCULAR SYSTEM: Normal flow voids in the major intracranial circulation. CALVARIUM, SKULL BASE, PARANASAL SINUSES AND MASTOID AIR CELLS: Clear. No expansile changes. ORBITS: Both globes, extraocular muscles, optic nerves and retrobulbar fat appear unremarkable. MRI/Brain W/WO Contrast IMPRESSION: There are several bilateral small white matter hyperintensities, distributed throughout the deep and subcortical white matter tracts of the cerebral hemispheres, may represent mild chronic white matter ischemic changes. Electronically Signed: Marylou Courtney MD at 13:15 EDT ,
[2022-12-06 16:07] LABS: CREATININE FINGERSTICK 0.9 mg/dL (0.55-1.02); EGFR FINGERSTICK > 60.0000 mL/min (>60)
== END | disposition home or self-care (01) ==
LOC: MRI 15:27
PROVIDERS: PCP Internal Medicine; Referring Provider Otolaryngology; Visit Provider Otolaryngology
DX: R42 Dizziness and giddiness (principal); H90.3 Sensorineural hearing loss, bilateral
CPT/HCPCS: 70553; A9575